=== PATIENT | female | born 1955 | race Caucasian/White ===

== ENCOUNTER 2019-12-15 09:54 | Outpatient (REF) | payer OTHER, SELFPAY | END 2019-12-15 09:55 | disposition home or self-care (01) | LOC: HO.LNP 09:54 | PROVIDERS: PCP Internal Medicine; Visit Provider Surgery | DX: L72.0 Epidermal cyst (principal) | CPT/HCPCS: 11401; 88304 ==

== ENCOUNTER → 2019-12-29 11:20 | Outpatient (BNVA) | payer OTHER, SELFPAY | PROVIDERS: PCP Internal Medicine; Visit Provider Surgery | DX: Z09 Encounter for follow-up examination after completed treatment for conditions other than malignant neoplasm (principal); Z87.2 Personal history of diseases of the skin and subcutaneous tissue | CPT/HCPCS: 99212; 99213 ==

== ENCOUNTER 2020-02-12 10:28 | Outpatient (REF) | payer OTHER, SELFPAY ==
[2020-02-12 14:28] LABS: Alanine Aminotransferase 15 U/L (0-31); Anion Gap 12 (12-20); Aspartate Amino Transferase 20 U/L (5-31); Blood Urea Nitrogen 19 mg/dL (9-16); Calcium 9.6 mg/dL (8.4-10.2); Carbon Dioxide 31 mmol/L (22-29); Chloride 103 mmol/L (96-108); Cholesterol 197 mg/dL; Estimated Glomerular Filt Rate > 60; Glucose Fasting 96 mg/dL (60-99); HDL Cholesterol 64 mg/dL; LDL Cholesterol Calculated 116 mg/dl; Potassium 4.1 mmol/l (3.3-5.1); Sodium 142 mmol/L (135-145); Triglycerides 86 mg/dL
== END 2020-02-12 10:29 | disposition home or self-care (01) ==
LOC: HO.HMGCLDS 10:28
PROVIDERS: PCP Internal Medicine; Visit Provider Internal Medicine
DX: M85.89 Other specified disorders of bone density and structure, multiple sites (principal); E78.5 Hyperlipidemia, unspecified; I10 Essential (primary) hypertension
CPT/HCPCS: 80048; 80061; 82306; 84450; 84460

== ENCOUNTER 2020-03-12 20:52 | Emergency (ER) | payer OTHER, SELFPAY ==
[2020-03-12 20:59] VITALS: BP 151/83; BP 178/112; PULSE 93; PULSE 95; RESP 17; TEMP 36.9; O2SAT 97; O2SAT 98; BMI 33.7
--- NOTE | 2020-03-12 21:07 | XR_ITS ---
EXAMINATION: XR CHEST CLINICAL INFORMATION: Chronic cough. COMPARISON: Most recent chest radiograph dated 10/03/2018. TECHNIQUE: Frontal view of the chest was obtained. FINDINGS: The lungs are clear. The cardiomediastinal silhouette is normal in size. There is no pleural effusion or pneumothorax. No acute osseous abnormality. XR/XR chest 1V IMPRESSION: No acute cardiopulmonary findings.
--- NOTE | 2020-03-12 21:07 | ECG_ITS ---
Test Reason : NAUSEA/VOMITING Blood Pressure : / mmHG Vent. Rate : 069 BPM Atrial Rate : 069 BPM P-R Int : 164 ms QRS Dur : 080 ms QT Int : 396 ms P-R-T Axes : 034 -03 019 degrees QTc Int : 424 ms Normal sinus rhythm Moderate voltage criteria for LVH, may be normal variant Nonspecific ST abnormality Abnormal ECG When compared with ECG of 17-SEP-2018 14:20, No significant change was found Referred By: Jocelyn Jc Electronically Signed By:MARTHA PENA
--- NOTE | 2020-03-12 21:08 | ED_ITS ---
HPI - General Adult General Chief complaint: General Medical Stated complaint: N/V/D Time Seen by Provider: 03/12/20 20:56 Source: patient Mode of arrival: ambulatory History of Present Illness HPI narrative: 64-year-old female with a past medical history of hypertension, GERD, hyperlipidemia, IBS, breast cancer s/p double mastectomy, Lyme disease, sarcoidosis, presenting to the ED complaining nausea and vomiting x3 days with decreased p.o. intake. Also reports some nonbloody diarrhea. Reports chronic dry cough. Denies fever, CP/SOB, abdominal pain, dysuria/hematuria, suspicious food intake, recent travel. Admits niece with cold x months, but has tested negative for COVID-19 Onset (ago): day(s) Related Data Home Medications Medication Instructions Recorded Confirmed albuterol sulfate 90 mcg/actuation INHALATION 12/12/19 12/29/19 aerosol inhaler amlodipine 10 mg tablet 10 mg PO DAILY 12/12/19 12/29/19 cetirizine 10 mg tablet 10 mg PO DAILY 12/12/19 12/29/19 cholecalciferol (vitamin D3) 50 50 mcg PO DAILY 12/12/19 12/29/19 mcg (2,000 unit) capsule doxazosin 2 mg tablet 2 mg PO DAILY 12/12/19 12/29/19 vitamin B complex 1 tab PO DAILY 12/12/19 12/29/19 flu vac qs 2019(4 yr up)CD(PF) ml IM 02/16/20 02/16/20 vit C 250 mg-E 200 unit-zinc 40 1 tab PO BID 02/16/20 02/16/20 mg-copper 1 [id number]-euhbwq-sntoks capsule Previous Rx's Medication Instructions Recorded omeprazole 20 mg capsule,delayed 20 mg PO QAM #30 cap 01/25/20 release olmesartan 20 mg tablet 20 mg PO QAM #30 tab 01/29/20 albuterol sulfate 90 mcg/actuation 2 puff INHALATION Q4-6H PRN #8.5 g 02/23/20 aerosol inhaler levofloxacin 250 mg PO DAILY 3 Days #3 tab 03/13/20 ondansetron HCl [Zofran] 4 mg PO Q8H PRN #7 tab 03/13/20 Allergies Allergy/AdvReac Type Severity Reaction Status Date / Time Penicillins Allergy Severe ANAPHYLAXIS Verified 12/08/20 10:19 adhesive tape Allergy Intermediate BLISTERS Verified 02/16/20 10:19 hydrochlorothiazide Allergy Mild PALPITATION, Verified 02/16/20 10:19 PALPITATIONS, palpitations iopromide [From ULTRAVIST] Allergy Mild UTICARIA, Verified 02/16/20 10:19 HIVES latex [LATEX] Allergy Unknown RASH Verified 02/16/20 10:19 methotrexate [METHOTREXATE] AdvReac Severe DIARRHEA-LARGER Verified 02/16/20 10:19 DOSE OF MED chlorthalidone AdvReac Intermediate SHAKY,ANXIE Verified 02/16/20 10:19 [CHLORTHALIDONE] TY sulfamethoxazole AdvReac Intermediate STOMACH Verified 02/16/20 10:19 [SULFAMETHOXAZOLE] PAIN atorvastatin [From LIPITOR] AdvReac Mild MYALGIA Verified 02/16/20 10:19 IVP dye Allergy Unknown redness Uncoded 01/26/19 00:00 and itching Review of Systems Review of Systems: Constitutional: No Weight loss, No Fever, + Chills, No Night Sweats ENT/Mouth: No Ear Pain, No Nasal Congestion, No Sinus Pain Cardiovascular: No Chest Pain, No SOB Respiratory: +chronic Cough, No Sputum, No Wheezing Gastrointestinal: + Nausea, + Vomiting, + Diarrhea, No Constipation, No Abdomi nal pain, No Hematochezia Genitourinary: No irregular bleeding, No Dysuria, No Urinary Frequency, No Hematuria Musculoskeletal: No joint pain, No Myalgias, No Joint Swelling Skin: No Skin Lesions, No rash Neuro: No Weakness, No Numbness, No Paresthesias, No Loss of Consciousness Yes all other systems are reviewed and are negative [facility] Past Medical History Attestation statement: The following information was validated with the patient. Medical History Carpal tunnel syndrome Essential hypertension Fatty liver GERD (gastroesophageal reflux disease) Hyperlipidemia IBS (irritable bowel syndrome) Invasive ductal carcinoma of right breast Lyme disease Osteopenia Sarcoidosis Surgical History History of bilateral mastectomy (~04/02/17) History of cholecystectomy (~04/15/14) History of left breast biopsy (~2017) History of left mastectomy (~06/09/18) History of lumpectomy of right breast (~1997) History of removal of Port-a-Cath (~02/04/18) History of tonsillectomy History of tubal ligation Family History Family History Father History of heart disease History of cardiovascular disorder Mother History of diabetes mellitus History of hypertension History of myocardial infarction History of emphysema Sister History of rheumatoid arthritis Brother History of rheumatoid arthritis Social History Social History Alcohol intake: never Smoking Status: Never smoker Advance Directives: No Advance Directives Information Provided: No Physical Exam Vital Signs: Vital Signs: Last Vital Signs Temp 99.7 F 03/12/20 22:19 Pulse 76 03/12/20 22:19 Resp 17 03/12/20 22:19 BP 137/77 03/12/20 22:19 Pulse Ox 94 03/12/20 22:19 Body Mass Index 33.7 Const: General: cooperative and healthy appearing Orientation/c onsciousness: patient oriented x3 Limitations: no limitations HENMT: Head: Yes normal to inspection Ears: hearing grossly normal bilaterally General nose exam: Normal external nose present Face and sinus: Yes normal facial exam Eyes: General: appearance normal, both eyes and all related structures EOM: EOMs intact bilaterally Neck: Neck: Yes normal visual inspection Resp: Effort & Inspection: normal respiratory effort Auscultation: clear to auscultation bilaterally, no crackles, no rales, no rhonchi and no wheezes Cardio: Rate: regular rate Heart sounds: S1 normal heart sound present and S2 normal heart sound present GI: Inspection: Yes normal to inspection Palpation (GI): Soft to palpation, nontender, no guarding and not rigid Skin: Rashes: no rashes Wounds: no wounds Neuro: General: patient oriented x3 Extrem: General: Yes normal to inspection Course Course Course Narrative: * Lipase mildly elevated at 97, labs otherwise unremarkable/ reassuring * covid/rsv/flu negative, CXR unremarkable * 1133-- On re-evaluation patient reports improvement in nausea, was able to tolerate p.o. Maalox and water, however reports feeling a little queasy now. abdomen remains soft and nontender. Will give IV Reglan and reassess * 0050- patient reports improvement in symptoms. UA positive for infection. Given 1st dose of Levaquin in the ED based on prior urine culture results. Discussed with patient worrisome signs and symptoms. She feels safe for discharge home with follow-up with PCP. Medical Decision Making MDM Narrative Medical decision making narrative: 64-year-old female with a past medical history of hypertension, GERD, hyperlipidemia, IBS, breast cancer s/p double mastectomy, Lyme disease, sarcoidosis, presenting to the ED complaining nausea and vomiting x3 days with decreased p.o. intake. Also reports some nonbloody diarrhea. On exam VSS, NAD/nontoxic appearing, abdomen is soft and nontender, lungs CTA. Concern for gastroenteritis vs viral syndrome/COVID-19 vs dehydration. Lower concern for appendicitis/diverticulitis w/o ttp on exam Plan: Labs, UA, CXR, COVID testing, IVF, Reassess Lab Data Result diagrams: 03/12/20 21:21 03/12/20 21:21 Labs: Lab Results 03/12/20 03/12/20 03/12/20 Range/Units 21:21 21:21 21:21 WBC 6.9 (4.8-10.8) X10*3/uL RBC 4.36 (4.20-5.50) X10*6/uL Hgb 13.5 (12.0-16.0) g/dl Hct 38.7 (37-47) % MCV 88.8 (80-98) fL MCH 31.0 (27.0-33.0) pg MCHC 34.9 (31.0-35.0) g/dl RDW 12.0 (11.0-16.0) % Plt Count 175 (160-400) X10*3/uL MPV 10.4 (9.4-12.3) fL Immature Gran % (Auto) 0.9 H (0.0-0.4) % Neut % (Auto) 77.9 H (45-73) % Lymph % (Auto) 13.0 L (20-40) % Victoria % (Auto) 7.8 (2-11) % Eos % (Auto) 0.0 (0-4) % Baso % (Auto) 0.4 (0-2) % Lymph # (Auto) 0.9 L (1.2-4.9) X10*3/uL Victoria # (Auto) 0.5 (0.1-1.2) X10*3/uL Eos # (Auto) 0.0 (0.0-0.4) X10*3/uL Baso # (Auto) 0.0 (0.0-0.2) X10*3/uL Abs Immat Gran (auto) 0.06 H (0.00-0.03) X10*3/uL Absolute Neuts (auto) 5.4 (2.0-8.3) X10*3/uL Absolute Nucleated RBC 0.000 (0.0-0.012) X10*3/uL Nucleated RBC % (auto) 0.0 (0.0-0.2) /100WBC Hold Blue Top Sodium 139 (135-145) mmol/L Potassium 3.9 (3.3-5.1) mmol/l Chloride 98 (96-108) mmol/L Carbon Dioxide 29 (22-29) mmol/L Anion Gap 16 (12-20) BUN 15 (9-16) mg/dL Creatinine 0.70 (0.5-1.4) mg/dL Estim Creat Clear Calc 79.2 Estimated GFR > 60 Random Glucose 116 H (60-115) mg/dL Calcium 9.3 (8.4-10.2) mg/dL Magnesium 2.0 (1.6-2.6) mg/dL Total Bilirubin 0.5 (0.0-1.0) mg/dL Direct Bilirubin 0.2 (0.0-0.5) mg/dL AST 29 D (5-31) U/L ALT 23 (0-31) U/L Alkaline Phosphatase 106 (39-117) U/L Total Protein 7.9 (6.5-8.0) g/dL Albumin 4.7 (3.5-5.0) g/dL Lipase (8-78) U/L Urine Color Urine Appearance Urine pH (5.0-8.0) Ur Specific Elsie (1.005-1.025) Urine Protein (NEG-TRACE) MG/DL Urine Glucose (UA) (NEG) MG/DL Urine Ketones (NEG) MG/DL Urine Blood (NEG) Urine Nitrite (NEG) Ur Leukocyte Esterase (NEG) Urine RBC (0) /HPF Urine WBC (0-4) /HPF Ur Squamous Epith Cells /LPF Urine Bacteria /LPF Urine Mucus /LPF Coronavirus (PCR) NEGATIVE (Negative) Influenza Type A (PCR) NEGATIVE (Negative) Influenza Type B (PCR) NEGATIVE (Negative) RSV RNA Qual (PCR) NEGATIVE (Negative) 03/12/20 03/12/20 03/12/20 Range/Units 21:21 21:21 23:54 WBC (4.8-10.8) X10*3/uL RBC (4.20-5.50) X10*6/uL Hgb (12.0-16.0) g/dl Hct (37-47) % MCV (80-98) fL MCH (27.0-33.0) pg MCHC (31.0-35.0) g/dl RDW (11.0-16.0) % Plt Count (160-400) X10*3/uL MPV (9.4-12.3) fL Immature Gran % (Auto) (0.0-0.4) % Neut % (Auto) (45-73) % Lymph % (Auto) (20-40) % Victoria % (Auto) (2-11) % Eos % (Auto) (0-4) % Baso % (Auto) (0-2) % Lymph # (Auto) (1.2-4.9) X10*3/uL Victoria # (Auto) (0.1-1.2) X10*3/uL Eos # (Auto) (0.0-0.4) X10*3/uL Baso # (Auto) (0.0-0.2) X10*3/uL Abs Immat Gran (auto) (0.00-0.03) X10*3/uL Absolute Neuts (auto) (2.0-8.3) X10*3/uL Absolute Nucleated RBC (0.0-0.012) X10*3/uL Nucleated RBC % (auto) (0.0-0.2) /100WBC Hold Blue Top SEE NOTE Sodium (135-145) mmol/L Potassium (3.3-5.1) mmol/l Chloride (96-108) mmol/L Carbon Dioxide (22-29) mmol/L Anion Gap (12-20) BUN (9-16) mg/dL Creatinine (0.5-1.4) mg/dL Estim Creat Clear Calc Estimated GFR Random Glucose (60-115) mg/dL Calcium (8.4-10.2) mg/dL Magnesium (1.6-2.6) mg/dL Total Bilirubin (0.0-1.0) mg/dL Direct Bilirubin (0.0-0.5) mg/dL AST (5-31) U/L ALT (0-31) U/L Alkaline Phosphatase (39-117) U/L Total Protein (6.5-8.0) g/dL Albumin (3.5-5.0) g/dL Lipase 97 H (8-78) U/L Urine Color YELLOW Urine Appearance CLEAR Urine pH 6.5 (5.0-8.0) Ur Specific Elsie 1.020 (1.005-1.025) Urine Protein NEG (NEG-TRACE) MG/DL Urine Glucose (UA) NEG (NEG) MG/DL Urine Ketones 40 (NEG) MG/DL Urine Blood TRACE (NEG) Urine Nitrite POS H (NEG) Ur Leukocyte Esterase NEG (NEG) Urine RBC 1-4 (0) /HPF Urine WBC 0-2 (0-4) /HPF Ur Squamous Epith Cells 1+ /LPF Urine Bacteria 3+ /LPF Urine Mucus TRACE /LPF Coronavirus (PCR) (Negative) Influenza Type A (PCR) (Negative) Influenza Type B (PCR) (Negative) RSV RNA Qual (PCR) (Negative) Discharge Plan Discharge Clinical Impression: UTI (urinary tract infection) Qualifiers: Urinary tract infection type: acute cystitis Hematuria presence: without hematuria Qualified Code(s): N30.00 - Acute cystitis without hematuria Nausea & vomiting Qualifiers: Vomiting type: unspecified Vomiting Intractability: non-intractable Qualified Code(s): R11.2 - Nausea with vomiting, unspecified Patient Disposition: Home, Self-Care Instructions: Urinary Tract Infection in Women (ED), Acute Nausea and Vomiting (ED) Additional Instructions: you have a urinary tract infection Levaquin is an antibiotic, take as prescribed your blood work was reassuring Today in the emergency department your pancreas enzymes were mildly elevated Your are COVID-19 influenza, and RSV negative Zofran is for nausea, take as needed It important for you to stay hydrated at home Follow-up with her doctor If her symptoms persist or worsen, your unable to eat or drink, or developed fever return to the ED Prescriptions: New levofloxacin 250 mg tablet 250 mg PO DAILY 3 Days Qty: 3 RF: 0 ondansetron HCl [Zofran] 4 mg tablet 4 mg PO Q8H PRN (Reason: nausea and vomiting) Qty: 7 RF: 0 No Action omeprazole 20 mg capsule,delayed release(DR/EC) 20 mg PO QAM Qty: 30 RF: 6 olmesartan 20 mg tablet 20 mg PO QAM Qty: 30 RF: 8 albuterol sulfate 90 mcg/actuation HFA aerosol inhaler 2 puff inhalation Q4-6H PRN (Reason: bronchospasm) Qty: 8.5 RF: 3 Flucelvax Quad [id number] (PF) 60 mcg (15 mcg x 4)/0.5 mL syringe IM RF: 0 PreserVision AREDS-2 [id number] me-aawu-cy-mg capsule 1 tab PO BID RF: 0 amlodipine 10 mg tablet 10 mg PO DAILY RF: 0 cetirizine 10 mg tablet 10 mg PO DAILY RF: 0 doxazosin 2 mg tablet 2 mg PO DAILY RF: 0 albuterol sulfate 90 mcg/actuation HFA aerosol inhaler inhalation RF: 0 vitamin B complex Tablet 1 tab PO DAILY RF: 0 cholecalciferol (vitamin D3) 50 mcg (2,000 unit) capsule 50 mcg PO DAILY RF: 0 Referrals: Lizette Bey MD [Physician] - 1 week (as needed) Physician,Unknown [Primary Care Provider] - 2 days
[2020-03-12 21:37] LABS: Basophils Percent Auto 0.4 % (0-2); Hematocrit 38.7 % (37-47); Hemoglobin 13.5 g/dl (12.0-16.0); Imm Gran Abs Auto 0.06 X10*3/uL (0.00-0.03); Imm Gran Pct Auto 0.9 % (0.0-0.4); Lymphocytes Absolute Auto 0.9 X10*3/uL (1.2-4.9); Mean Corpuscular HGB Conc 34.9 g/dl (31.0-35.0); Mean Corpuscular Volume 88.8 fL (80-98); Mean Platelet Volume 10.4 fL (9.4-12.3); Monocytes Absolute Auto 0.5 X10*3/uL (0.1-1.2); Monocytes Percent Auto 7.8 % (2-11); Neutrophils Absolute Auto 5.4 X10*3/uL (2.0-8.3); Neutrophils Percent Auto 77.9 % (45-73); Platelet Count 175 X10*3/uL (160-400); Red Blood Count 4.36 X10*6/uL (4.20-5.50); White Blood Count 6.9 X10*3/uL (4.8-10.8)
[2020-03-12 21:39] LABS: MANUAL DIFF FLAG NO
[2020-03-12] MEDS: Magnesium Hydrox/Alum Hydrox 30 ML ORAL.SUSP PO (22:05)
[2020-03-12] MEDS: 0.9 % Sodium Chloride 1,000 ML 999 ML IVCONT (22:05)
[2020-03-12] MEDS: ondansetron HCL 4 MG/2 ML VIAL IVPUSH (22:06)
[2020-03-12] MEDS: Famotidine/PF 20 MG/2 ML VIAL IVPUSH (22:06)
[2020-03-12 22:12] LABS: Alanine Aminotransferase 23 U/L (0-31); Albumin Level 4.7 g/dL (3.5-5.0); Alkaline Phosphatase 106 U/L (39-117); Anion Gap 16 (12-20); Aspartate Amino Transferase 29 U/L (5-31); Bilirubin Direct 0.2 mg/dL (0.0-0.5); Bilirubin Total 0.5 mg/dL (0.0-1.0); Blood Urea Nitrogen 15 mg/dL (9-16); Calcium 9.3 mg/dL (8.4-10.2); Carbon Dioxide 29 mmol/L (22-29); Chloride 98 mmol/L (96-108); Creatinine Clr Calc Pharmacy 79.2; Estimated Glomerular Filt Rate > 60; Glucose Random 116 mg/dL (60-115); Potassium 3.9 mmol/l (3.3-5.1); Sodium 139 mmol/L (135-145); Total Protein 7.9 g/dL (6.5-8.0)
[2020-03-12 22:14] VITALS: BP 142/72; PULSE 62
[2020-03-12 22:15] VITALS: BP 140/78; PULSE 70
[2020-03-12 22:16] LABS: Lipase 97 U/L (8-78)
[2020-03-12 22:17] VITALS: BP 137/77; PULSE 76
[2020-03-12 22:19] VITALS: BP 137/77; PULSE 76; RESP 17; TEMP 37.6; O2SAT 94
[2020-03-12] MEDS: Acetaminophen 325 MG TABLET 650 MG PO (23:05)
[2020-03-12 23:07] LABS: Influenza A PCR NEGATIVE (Negative); Influenza B PCR NEGATIVE (Negative); Resp Syncy Virus RNA Qual PCR NEGATIVE (Negative); SARS COV2 PCR INHOUSE NEGATIVE (Negative)
--- NOTE | 2020-03-12 23:42 | PC.NURSE ---
PT AWAKE AND ALERT, ABLE TO TOLERATE P.O. WATER AND MAALOX. PT STILL FEELING NAUSEOUS. PT HAS NOT HAD DIARRHEA SINCE ARRIVAL TO ER.
[2020-03-12] MEDS: Metoclopramide HCl 10 MG/2 ML VIAL IVPUSH (23:58)
[2020-03-13 00:05] LABS: Glucose Urine UA NEG (NEG); Leukocyte Esterase Urine NEG (NEG); Nitrite Urine POS (NEG); PH 6.5 (5.0-8.0); Urine Blood TRACE (NEG); Urine Ketones 40 MG/DL (NEG); Urine Protein NEG (NEG-TRACE)
[2020-03-13 00:10] LABS: Appearance Urine CLEAR; Color Urine YELLOW
[2020-03-13 00:48] LABS: Bacteria Urine 3+ /LPF; Mucus Urine TRACE /LPF; Squamous Epithelial Cell Urine 1+ /LPF; WBC Urine 0-2 /HPF (0-4)
[2020-03-13] MEDS: levoFLOXacin 250 MG TABLET PO (01:01)
[2020-03-13] MEDS: 0.9 % Sodium Chloride 1,000 ML 999 ML IVCONT (01:01)
[2020-03-13 01:02] VITALS: BP 142/70; PULSE 73; RESP 16; O2SAT 97
== END 2020-03-13 02:38 | disposition home or self-care (01) ==
PROVIDERS: Physician Assistant; Emergency Provider Internal Medicine
DX: N30.00 Acute cystitis without hematuria (principal); R11.2 Nausea with vomiting, unspecified; Z20.828 Contact with and (suspected) exposure to other viral communicable diseases; I10 Essential (primary) hypertension
CPT/HCPCS: 0241U; 36415; 71045; 80048; 80076; 81001; 81003; 83690; 83735; 85025; 87086; 87088; 87186; 93005; 96361; 96374; 96375; 99284; J2405; J2765

== ENCOUNTER 2020-03-14 13:34 | Emergency (ER) | payer OTHER, SELFPAY ==
[2020-03-14 14:52] VITALS: BP 140/62; PULSE 69; RESP 18; TEMP 36.4; O2SAT 97; BMI 32.5
--- NOTE | 2020-03-14 14:52 | ED.GENADULT ---
HPI - General Adult General Chief complaint: Nausea/Vomiting/Diarrhea Stated complaint: v/n/d Time Seen by Provider: 03/14/20 14:51 Related Data Home Medications Medication Instructions Recorded Confirmed albuterol sulfate 90 mcg/actuation INHALATION 12/12/19 12/29/19 aerosol inhaler amlodipine 10 mg tablet 10 mg PO DAILY 12/12/19 12/29/19 cetirizine 10 mg tablet 10 mg PO DAILY 12/12/19 12/29/19 cholecalciferol (vitamin D3) 50 50 mcg PO DAILY 12/12/19 12/29/19 mcg (2,000 unit) capsule doxazosin 2 mg tablet 2 mg PO DAILY 12/12/19 12/29/19 vitamin B complex 1 tab PO DAILY 12/12/19 12/29/19 flu vac qs 2019(4 yr up)CD(PF) ml IM 02/16/20 02/16/20 vit C 250 mg-E 200 unit-zinc 40 1 tab PO BID 02/16/20 02/16/20 mg-copper 1 [id number]-yzifkd capsule Previous Rx's Medication Instructions Recorded omeprazole 20 mg capsule,delayed 20 mg PO QAM #30 cap 01/25/20 release olmesartan 20 mg tablet 20 mg PO QAM #30 tab 01/29/20 albuterol sulfate 90 mcg/actuation 2 puff INHALATION Q4-6H PRN #8.5 g 02/23/20 aerosol inhaler levofloxacin 250 mg PO DAILY 3 Days #3 tab 03/13/20 ondansetron HCl [Zofran] 4 mg PO Q8H PRN #7 tab 03/13/20 Allergies Allergy/AdvReac Type Severity Reaction Status Date / Time Penicillins Allergy Severe ANAPHYLAXIS Verified 02/16/20 10:19 adhesive tape Allergy Intermediate BLISTERS Verified 02/16/20 10:19 hydrochlorothiazide Allergy Mild PALPITATION, Verified 02/16/20 10:19 PALPITATIONS, palpitations iopromide [From ULTRAVIST] Allergy Mild UTICARIA, Verified 02/16/20 10:19 HIVES latex [LATEX] Allergy Unknown RASH Verified 02/16/20 10:19 methotrexate [METHOTREXATE] AdvReac Severe DIARRHEA-LARGER Verified 02/16/20 10:19 DOSE OF MED chlorthalidone AdvReac Intermediate SHAKY,ANXIE Verified 02/16/20 10:19 [CHLORTHALIDONE] TY sulfamethoxazole AdvReac Intermediate STOMACH Verified 02/16/20 10:19 [SULFAMETHOXAZOLE] PAIN atorvastatin [From LIPITOR] AdvReac Mild MYALGIA Verified 02/16/20 10:19 IVP dye Allergy Unknown redness Uncoded 01/26/19 00:00 and itching PMFSH Past Medical History Medical History Carpal tunnel syndrome Essential hypertension Fatty liver GERD (gastroesophageal reflux disease) Hyperlipidemia IBS (irritable bowel syndrome) Invasive ductal carcinoma of right breast Lyme disease Osteopenia Sarcoidosis Surgical History History of bilateral mastectomy (~04/02/17) History of cholecystectomy (~04/15/14) History of left breast biopsy (~2017) History of left mastectomy (~06/09/18) History of lumpectomy of right breast (~1997) History of removal of Port-a-Cath (~02/04/18) History of tonsillectomy History of tubal ligation Family History Family History Father History of heart disease History of cardiovascular disorder Mother History of diabetes mellitus History of hypertension History of myocardial infarction History of emphysema Sister History of rheumatoid arthritis Brother History of rheumatoid arthritis Social History Social History Alcohol intake: never Smoking Status: Never smoker Course Course Course Narrative: 1452-This is a rapid medical exam. 64 yo female with past medical history of breast cancer in remission, HTN, asthma here with nausea, vomiting, diarrhea x 5-6 days. Seen here Saturday and had covid testing, labs. Diagnosed with UTI. Taking levaquin, zofran SL at home. Continued symptoms of vomiting, nausea, weight loss of 10lbs. No abdominal pain. Will check labs. Deferred HPI, PE, ROS, and additional testing to primary provider. Discharge Plan Discharge Prescriptions: No Action omeprazole 20 mg capsule,delayed release(DR/EC) 20 mg PO QAM Qty: 30 RF: 6 olmesartan 20 mg tablet 20 mg PO QAM Qty: 30 RF: 8 albuterol sulfate 90 mcg/actuation HFA aerosol inhaler 2 puff inhalation Q4-6H PRN (Reason: bronchospasm) Qty: 8.5 RF: 3 levofloxacin 250 mg tablet 250 mg PO DAILY 3 Days Qty: 3 RF: 0 ondansetron HCl [Zofran] 4 mg tablet 4 mg PO Q8H PRN (Reason: nausea and vomiting) Qty: 7 RF: 0 Flucelvax Quad (PF) 60 mcg (15 mcg x 4)/0.5 mL syringe IM RF: 0 PreserVision AREDS-2 [id number] xb-uyyw-qy-mg capsule 1 tab PO BID RF: 0 amlodipine 10 mg tablet 10 mg PO DAILY RF: 0 cetirizine 10 mg tablet 10 mg PO DAILY RF: 0 doxazosin 2 mg tablet 2 mg PO DAILY RF: 0 albuterol sulfate 90 mcg/actuation HFA aerosol inhaler inhalation RF: 0 vitamin B complex Tablet 1 tab PO DAILY RF: 0 cholecalciferol (vitamin D3) 50 mcg (2,000 unit) capsule 50 mcg PO DAILY RF: 0
== END 2020-03-14 18:00 | disposition left against medical advice (07) ==
PROVIDERS: Emergency Provider Emergency Medicine; PCP Internal Medicine
DX: R11.2 Nausea with vomiting, unspecified (principal); R19.7 Diarrhea, unspecified; I10 Essential (primary) hypertension; K76.0 Fatty (change of) liver, not elsewhere classified; Z85.3 Personal history of malignant neoplasm of breast
CPT/HCPCS: 99282; 99283

== ENCOUNTER → 2020-03-15 09:57 | Outpatient (BNV) | payer MEDICARE, SELFPAY | PROVIDERS: PCP Internal Medicine; Visit Provider Internal Medicine Medical Oncology | DX: C50.912 Malignant neoplasm of unspecified site of left female breast (principal) | CPT/HCPCS: 99212; 99213; 99214 ==

== ENCOUNTER 2020-03-18 09:58 | Outpatient (REF) | payer OTHER, SELFPAY ==
--- NOTE | 2020-03-18 10:02 | US_ITS ---
EXAMINATION: US ABDOMEN COMPLETE CLINICAL INFORMATION: Right upper quadrant pain. COMPARISON: CT abdomen 12/14/2014. Ultrasound abdomen 03/22/2014 and 03/02/2013. TECHNIQUE: Real-time imaging of the abdominal viscera. FINDINGS: PANCREAS: Normal ABDOMINAL AORTA: The proximal, mid, and distal segments are normal in caliber. INFERIOR VENA CAVA: Visualized portions are normal. LIVER: Normal. The liver is normal in size. The liver contour is normal. Parenchymal echogenicity is normal. No focal hepatic lesion. There is no intrahepatic biliary duct dilatation seen. GALLBLADDER: Surgically absent. COMMON BILE DUCT: Normal in caliber measuring 0.8 cm in diameter. RIGHT KIDNEY: Normal. No hydronephrosis. No renal calculi or focal parenchymal lesions. The kidney measures 10.1 cm in maximum dimension. LEFT KIDNEY: Normal. No hydronephrosis. No renal calculi or focal parenchymal lesions. The kidney measures 9.8 cm in maximum dimension. SPLEEN: Normal. The spleen measures 9.8 cm in maximum dimension. FREE FLUID: None US/US abdomen complete IMPRESSION: Unremarkable complete abdomen ultrasound.
== END 2020-03-18 09:59 | disposition home or self-care (01) ==
LOC: HO.HMGCX 09:58
PROVIDERS: Visit Provider Internal Medicine Medical Oncology
DX: R10.11 Right upper quadrant pain (principal)
CPT/HCPCS: 76700

== ENCOUNTER 2020-03-25 12:16 | Outpatient (REF) | payer OTHER, SELFPAY ==
[2020-03-25 14:36] LABS: Anion Gap 14 (12-20); Carbon Dioxide 30 mmol/L (22-29); Chloride 102 mmol/L (96-108); Potassium 4.4 mmol/l (3.3-5.1); Sodium 142 mmol/L (135-145)
== END 2020-03-25 12:17 | disposition home or self-care (01) ==
LOC: HO.HMGCLDS 12:16
PROVIDERS: PCP Internal Medicine; Visit Provider Internal Medicine Medical Oncology
DX: C50.912 Malignant neoplasm of unspecified site of left female breast (principal)
CPT/HCPCS: 36415; 80051

== ENCOUNTER 2020-04-07 09:19 | Outpatient (REF) | payer OTHER, SELFPAY ==
[2020-04-07 11:16] LABS: MANUAL DIFF FLAG NO
[2020-04-07 11:26] LABS: Basophils Percent Auto 0.3 % (0-2); Eosinophils Absolute Auto 0.1 X10*3/uL (0.0-0.4); Eosinophils Percent Auto 1.8 % (0-4); Hematocrit 39.7 % (37-47); Hemoglobin 13.2 g/dl (12.0-16.0); Imm Gran Abs Auto 0.01 X10*3/uL (0.00-0.03); Imm Gran Pct Auto 0.3 % (0.0-0.4); Lymphocytes Absolute Auto 0.9 X10*3/uL (1.2-4.9); Lymphocytes Percent Auto 24.7 % (20-40); Mean Corpuscular HGB Conc 33.2 g/dl (31.0-35.0); Mean Corpuscular Hemoglobin 30.1 pg (27.0-33.0); Mean Corpuscular Volume 90.6 fL (80-98); Monocytes Absolute Auto 0.4 X10*3/uL (0.1-1.2); Monocytes Percent Auto 9.7 % (2-11); Neutrophils Absolute Auto 2.4 X10*3/uL (2.0-8.3); Neutrophils Percent Auto 63.2 % (45-73); Platelet Count 149 X10*3/uL (160-400); Red Blood Count 4.38 X10*6/uL (4.20-5.50); Red Cell Distribution Width 12.4 % (11.0-16.0); White Blood Count 3.8 X10*3/uL (4.8-10.8)
[2020-04-07 11:52] LABS: Alanine Aminotransferase 10 U/L (0-31); Albumin Level 4.5 g/dL (3.5-5.0); Alkaline Phosphatase 100 U/L (39-117); Amylase 66 U/L (28-100); Anion Gap 15 (12-20); Aspartate Amino Transferase 15 U/L (5-31); Bilirubin Total 0.7 mg/dL (0.0-1.0); Blood Urea Nitrogen 13 mg/dL (9-16); Calcium 9.3 mg/dL (8.4-10.2); Carbon Dioxide 31 mmol/L (22-29); Chloride 101 mmol/L (96-108); Estimated Glomerular Filt Rate > 60; Glucose Fasting 123 mg/dL (60-99); Lipase 49 U/L (8-78); Potassium 3.6 mmol/l (3.3-5.1); Sodium 143 mmol/L (135-145)
== END 2020-04-07 09:20 | disposition home or self-care (01) ==
LOC: HO.HMGCLDS 09:19
PROVIDERS: PCP Internal Medicine; Visit Provider Internal Medicine
DX: I10 Essential (primary) hypertension (principal); K58.2 Mixed irritable bowel syndrome; R10.13 Epigastric pain
CPT/HCPCS: 36415; 80053; 82150; 83690; 85025

== ENCOUNTER → 2020-05-24 10:01 | Outpatient (BNVA) | payer OTHER, SELFPAY | PROVIDERS: PCP Internal Medicine; Visit Provider Surgery | DX: C50.912 Malignant neoplasm of unspecified site of left female breast (principal) | CPT/HCPCS: 99212 ==

== ENCOUNTER 2020-06-14 12:57 | Outpatient (REF) | payer OTHER, SELFPAY ==
[2020-06-16 22:17] LABS: HPV mRNA E6/E7 rflx Not Detected (Not Detected)
== END 2020-06-14 12:58 | disposition home or self-care (01) ==
LOC: HO.LNP 12:57
PROVIDERS: Visit Provider Internal Medicine
DX: Z12.4 Encounter for screening for malignant neoplasm of cervix (principal); Z92.29 Personal history of other drug therapy
CPT/HCPCS: 87624; 88142

== ENCOUNTER 2020-06-21 10:57 | Outpatient (REF) | payer OTHER, SELFPAY ==
--- NOTE | ~2020-06-21 | MM_ITS ---
EXAMINATION: BONE DENSITOMETRY CLINICAL INDICATION: Other specified disorders of bone density and structure. COMPARISON: Previous BD dated 01/29/2017 and baseline BD dated 08/17/2008. TECHNIQUE: Using a [employer] DXA System (software version: 13.1) manufactured by [employer], dual-energy x-ray absorptiometry was performed of the lumbar spine and left hip. The images are of good technical quality. Summary results are attached. FINDINGS: AP SPINE L1-L4: Current: BMD 1.044 g/cm2, Z-score -0.1, T-score -1.1, osteopenia, 4.6% decrease from previous, 1.9% decrease from baseline (<5% change is not significant). Prior: BMD 1.094 g/cm2. Baseline: BMD 1.064 g/cm2. LEFT FEMUR, NECK: Current: BMD 0.683 g/cm2, Z-score -1.5, T-score -2.6, osteoporosis. Prior: BMD 0.785 g/cm2. Baseline: BMD 0.825 g/cm2. LEFT FEMUR, TOTAL: Current: BMD 0.773 g/cm2, Z-score -1.1, T-score -1.9, osteopenia, 12.1% decrease from previous, 13.7% decrease from baseline (<5% change is not significant). Prior: BMD 0.879 g/cm2. Baseline: BMD 0.896 g/cm2. IDENTIFIED RISK FACTORS: Early menopause, secondary osteoporosis, glucocorticoids (chronic) thiazide. HISTORY OF FRACTURE: None listed. MEDICATIONS: Vitamin D. MM/XR DEXA axial skeleton IMPRESSION: 1. DIAGNOSIS: Osteoporosis based on the lowest T-score value of -2.6 in the femoral neck applying World Health Organization criteria. 2. 10-YEAR FRACTURE RISK PREDICTION, FRAX: Major osteoporotic fracture (clinical spine, forearm, hip or shoulder) 12.4%. Hip fracture 2.5%. 3. Treatment Recommendations: NOF guidelines recommend consideration for treatment in postmenopausal women and men age 50 and older presenting with the following: -A hip or vertebral (clinical or morphometric) fracture. -T-score less than or equal to -2.5 at the femoral neck or spine after appropriate evaluation to exclude secondary causes. -Low bone mass at the hip or spine and a 10-year fracture probability by FRAX of greater than or equal to 3% for hip fracture or greater than or equal to 20% for major osteoporotic fracture based on the [place] adapted WHO algorithm. 4. Other Recommendations: All treatment decisions require clinical judgment and consideration of individual patient factors, including patient preferences, comorbidities, previous drug use, risk factors not captured in the FRAX model (e.g. frailty, falls, vitamin D deficiency, increased bone turnover, interval significant decline in bone density) and possible under or overestimation of fracture risk by FRAX. Additional medical evaluation for secondary cause of low bone mineral density may be appropriate. FUTURE SCAN RECOMMENDATION: People with diagnosed cases of osteoporosis or at high risk for fracture should have regular bone mineral density tests. For patients eligible for Medicare, routine testing is allowed once every 2 years. The testing frequency can be increased to one year for patients who have rapidly progressing disease, those who are receiving or discontinuing medical therapy to restore bone mass, or have additional risk factors.
== END 2020-06-21 10:58 | disposition home or self-care (01) ==
LOC: HO.MAMMO 10:57
PROVIDERS: Visit Provider Internal Medicine
DX: Z13.820 Encounter for screening for osteoporosis (principal); M85.852 Other specified disorders of bone density and structure, left thigh; E28.319 Asymptomatic premature menopause
CPT/HCPCS: 77080

== ENCOUNTER 2020-08-17 11:29 | Outpatient (REF) | payer OTHER, SELFPAY ==
[2020-08-17 16:30] LABS: Free T4 (Free Thyroxine) 1.05 ng/dL (0.71-1.85); Thyroid Stimulating Hormone 0.99 uIU/mL (0.32-4.0)
[2020-08-17 16:36] LABS: Alanine Aminotransferase 13 U/L (0-31); Albumin Level 4.4 g/dL (3.5-5.0); Alkaline Phosphatase 126 U/L (39-117); Anion Gap 14 (12-20); Aspartate Amino Transferase 19 U/L (5-31); Bilirubin Total 0.4 mg/dL (0.0-1.0); Blood Urea Nitrogen 17 mg/dL (9-16); Calcium 9.5 mg/dL (8.4-10.2); Carbon Dioxide 27 mmol/L (22-29); Chloride 104 mmol/L (96-108); Estimated Glomerular Filt Rate > 60; Glucose Random 113 mg/dL (60-115); Phosphorus 3.8 mg/dL (2.7-4.5); Potassium 3.8 mmol/L (3.3-5.1); Sodium 141 mmol/L (135-145); Total Protein 7.1 g/dL (6.5-8.0)
[2020-08-18 09:52] LABS: Calcium, Ionized 4.9 mg/dL (4.8-5.6)
[2020-08-19 09:27] LABS: Calcium (PTHI) 9.8 mg/dL (8.6-10.4); PTHI 99 pg/mL (14-64)
[2020-08-19 23:12] LABS: Prot Elec - Albumin 4.4 g/dL (3.8-4.8); Prot Elec - Alpha1 0.3 g/dL (0.2-0.3); Prot Elec - Alpha2 0.8 g/dL (0.5-0.9); Prot Elec - Beta 1 0.5 g/dL (0.4-0.6); Prot Elec - Beta 2 0.3 g/dL (0.2-0.5); Prot Elec - Gamma 0.9 g/dL (0.8-1.7); Prot Elec - Total Protein 7.2 g/dL (6.1-8.1)
[2020-08-20 11:16] LABS: Alkaline Phosphatase Bone 29.7 mcg/L (5.6-29.0)
== END 2020-08-17 11:30 | disposition home or self-care (01) ==
LOC: HO.HMGCLDS 11:29
PROVIDERS: PCP Internal Medicine; Visit Provider Internal Medicine
DX: M81.0 Age-related osteoporosis without current pathological fracture (principal); E55.9 Vitamin D deficiency, unspecified; E04.9 Nontoxic goiter, unspecified; Z79.899 Other long term (current) drug therapy
CPT/HCPCS: 36415; 80053; 82306; 82330; 83970; 84075; 84100; 84155; 84165; 84439; 84443; 99202

== ENCOUNTER 2020-08-23 10:03 | Outpatient (REF) | payer OTHER, SELFPAY ==
[2020-08-23 12:25] LABS: Creatinine, 24Hr Urine 1.1 G/Day (1.0-2.0); Creatinine, mg/dL 46.81; Total Volume 24 Hour Urine 2350 mL
[2020-08-24 17:36] LABS: Calcium, 24 Hr Urine 113 mg/24 h; Calcium/Creatinine Ratio 94 mg/g creat (30-275)
== END 2020-08-23 10:04 | disposition home or self-care (01) ==
LOC: HO.HMGCLNP 10:03
PROVIDERS: Visit Provider Internal Medicine
DX: M81.0 Age-related osteoporosis without current pathological fracture (principal)
CPT/HCPCS: 82340; 82570

== ENCOUNTER 2020-08-25 11:26 | Outpatient (REF) | payer OTHER, SELFPAY ==
--- NOTE | ~2020-08-25 | US_ITS ---
EXAMINATION: US THYROID CLINICAL INFORMATION: Nontoxic goiter, unspecified COMPARISON: CT neck 03/18/2018. TECHNIQUE: Linear transducer grayscale and color Doppler examination with attention to the region of the thyroid. FINDINGS: SIZE: Measurements of the thyroid lobes and nodules are given in sagittal, anteroposterior and transverse dimensions respectively. The thyroid gland is normal in size. Right Thyroid Lobe: 3.5 x 2.1 x 1.5 cm, volume 5.7 mL. Parenchyma: The gland echotexture is homogeneous. Thyroid vascularity is normal. Left Thyroid Lobe: 3.9 x 2.4 x 1.3 cm, volume 6.2 mL. Parenchyma: The gland echotexture is homogeneous. Thyroid vascularity is normal. Isthmus: 0.6 cm in maximum AP dimension. Estimated total number of nodules greater than or equal to 1 cm: 0. Shoe Maker nodules are described as follows: 1. Location: Right inferior. Size: 0.85 x 0.60 x 0.97 cm, volume 0.26 mL. Nodule characteristics: Composition: Mixed cystic and solid (1). Echogenicity: Hypoechoic (2). Shape: Not taller than wide (0). Margins: Smooth (0). Echogenic Foci: Punctate echogenic foci (3). ACR TI-RADS total points: 6 ACR TI-RADS category: 4 NODES: No lymphadenopathy is seen in the tissue surrounding the thyroid gland. US/US thyroid IMPRESSION: Solitary right thyroid nodule. According to TI RADS criteria, follow-up every year for 5 years recommended as described below. ACR TI-RADS RECOMMENDATION REFERENCE: Ultrasound-guided fine-needle aspiration, followup ultrasound, no further follow up. * TR1 (0 point) and TR 2 (2 points): No FNA or follow up * TR3 (3 points): FNA if more than or equal to 2.5 cm in maximum dimension, followup ultrasound in 1, 3 and 5 years if 1.5 to 2.4 cm in maximum dimension. * TR4 (4-6 points): FNA if more than or equal to 1.5 cm in maximum dimension, followup ultrasound in 1, 2, 3 and 5 years if 1 to 1.4 cm in maximum dimension. * TR5 (more than or equal to 7 points): FNA if more than or equal to 1 cm in maximum dimension, followup ultrasound every year for 5 years if 0.5 to 0.9 cm in maximum dimension. * TR3, TR4 or TR5 nodules that are below the size threshold for follow up receive no follow up.
== END 2020-08-25 11:27 | disposition home or self-care (01) ==
LOC: HO.HMGCX 11:26
PROVIDERS: PCP Internal Medicine; Visit Provider Internal Medicine
DX: E04.9 Nontoxic goiter, unspecified (principal)
CPT/HCPCS: 76536

== ENCOUNTER 2020-11-21 13:30 | Outpatient (REF) | payer OTHER, SELFPAY | END 2020-11-21 13:31 | disposition home or self-care (01) | LOC: HO.HMGCLDS 13:30 | PROVIDERS: PCP Internal Medicine; Visit Provider Internal Medicine | DX: Z20.822 Contact with and (suspected) exposure to COVID-19 (principal) | CPT/HCPCS: C9803; U0003; U0005 ==

== ENCOUNTER → 2020-11-23 08:38 | Outpatient (BNVA) | payer OTHER, SELFPAY | PROVIDERS: PCP Internal Medicine; Visit Provider Internal Medicine ==

== ENCOUNTER 2020-11-24 09:47 | Outpatient (REF) | payer OTHER, SELFPAY ==
[2020-11-24 11:15] LABS: MANUAL DIFF FLAG NO
[2020-11-24 11:39] LABS: Basophils Percent Auto 0.4 % (0-2); Eosinophils Absolute Auto 0.1 X10*3/uL (0.0-0.4); Eosinophils Percent Auto 1.9 % (0-4); Hematocrit 38.4 % (37-47); Hemoglobin 12.8 g/dl (12.0-16.0); Imm Gran Abs Auto 0.01 X10*3/uL (0.00-0.03); Imm Gran Pct Auto 0.2 % (0.0-0.4); Lymphocytes Absolute Auto 1.1 X10*3/uL (1.2-4.9); Lymphocytes Percent Auto 23.4 % (20-40); Mean Corpuscular HGB Conc 33.3 g/dl (31.0-35.0); Mean Corpuscular Hemoglobin 30.4 pg (27.0-33.0); Mean Corpuscular Volume 91.2 fL (80-98); Mean Platelet Volume 11.3 fL (9.4-12.3); Monocytes Absolute Auto 0.4 X10*3/uL (0.1-1.2); Monocytes Percent Auto 8.2 % (2-11); Neutrophils Absolute Auto 3.1 X10*3/uL (2.0-8.3); Neutrophils Percent Auto 65.9 % (45-73); Platelet Count 143 X10*3/uL (160-400); Red Blood Count 4.21 X10*6/uL (4.20-5.50); Red Cell Distribution Width 12.8 % (11.0-16.0); White Blood Count 4.7 X10*3/uL (4.8-10.8)
[2020-11-24 12:05] LABS: Free T4 (Free Thyroxine) 1.06 ng/dL (0.71-1.85)
[2020-11-24 12:09] LABS: Vitamin D 25-OH Total 27.1 ng/mL (>30)
[2020-11-24 12:25] LABS: Alanine Aminotransferase 18 U/L (0-31); Albumin Level 4.5 g/dL (3.5-5.0); Alkaline Phosphatase 105 U/L (39-117); Anion Gap 13 (12-20); Aspartate Amino Transferase 21 U/L (5-31); Bilirubin Total 0.6 mg/dL (0.0-1.0); Blood Urea Nitrogen 15 mg/dL (9-16); Calcium 9.6 mg/dL (8.4-10.2); Carbon Dioxide 28 mmol/L (22-29); Chloride 104 mmol/L (96-108); Estimated Glomerular Filt Rate > 60; Glucose Random 98 mg/dL (60-115); Phosphorus 3.7 mg/dL (2.7-4.5); Potassium 4.4 mmol/L (3.3-5.1); Sodium 141 mmol/L (135-145); Total Protein 7.2 g/dL (6.5-8.0)
[2020-11-26 14:06] LABS: CA 27.29 21 U/mL (<38)
[2020-11-28 14:02] LABS: Calcium (PTHI) 9.5 mg/dL (8.6-10.4); PTHI 93 pg/mL (14-64)
== END 2020-11-24 09:48 | disposition home or self-care (01) ==
LOC: HO.HMGCLDS 09:47
PROVIDERS: Internal Medicine Medical Oncology; PCP Internal Medicine; Visit Provider Internal Medicine
DX: E04.1 Nontoxic single thyroid nodule (principal); E21.3 Hyperparathyroidism, unspecified; C50.912 Malignant neoplasm of unspecified site of left female breast
CPT/HCPCS: 36415; 80053; 82306; 83970; 84100; 84439; 84443; 85025; 86300

== ENCOUNTER → 2020-12-02 11:42 | Outpatient (BNVA) | payer OTHER, SELFPAY | PROVIDERS: PCP Internal Medicine; Referring Provider Internal Medicine; Visit Provider Surgery | DX: C50.912 Malignant neoplasm of unspecified site of left female breast (principal) | CPT/HCPCS: 99212 ==

== ENCOUNTER 2021-03-30 07:50 | Outpatient (REF) | payer OTHER, SELFPAY ==
--- NOTE | 2021-03-30 09:14 | PM.OP ---
Brief Operative Note Date of Service: 03/30/21 Pre-op diagnosis: Thyroid nodule Procedure: This is doctor Tawny Hooks. This is an ultrasound-guided fine-needle aspiration report. Date of Examination: 03/30/2021 Indication: Multinodular Thyroid Porcedure: Procedure was explained to the patient. Alternatives, the risk and benefits were discussed. Written consent was obtained. A time-out was also obtained. After sterile preparation, fine-needle aspiration of a right mid pole 1.0 cm thyroid nodule was performed using direct ultrasound guidance to confirm accurate needle placement. Four aspirations were made using 27 gauge needles. An additional three aspirations were made using 25 guage needles. Samples were submitted for cytology. 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 The patient tolerated the procedure well. Aftercare instructions were provided. Impression: Uncomplicated fine needle aspiration biopsy of a right mid pole 1.0 cm thyroid nodule under ultrasound guidance. Surgeon: Tawny Hooks, DO Was an City Planning Engineer used for this Procedure?: No Estimated blood loss (mL): 0
[2021-03-30] MEDS: Lidocaine HCl 1 % MPF 5 ML VIAL 2 ML SUBCUT (11:32)
== END 2021-03-30 07:51 | disposition home or self-care (01) ==
LOC: HO.US 07:50
PROVIDERS: Visit Provider Internal Medicine
DX: E04.1 Nontoxic single thyroid nodule (principal)
CPT/HCPCS: 10005; 88172; 88173; 88177; 88305

== ENCOUNTER → 2021-04-13 11:15 | Outpatient (BNVA) | payer OTHER, SELFPAY | PROVIDERS: PCP Internal Medicine; Visit Provider Internal Medicine ==

== ENCOUNTER 2021-04-17 09:08 | Outpatient (REF) | payer OTHER, SELFPAY ==
--- NOTE | ~2021-04-17 | XR_ITS ---
EXAMINATION: XR LEFT HIP AND PELVIS CLINICAL INFORMATION: Left lower quadrant pain COMPARISON: None TECHNIQUE: 2 views of the left hip and single AP view of the pelvis FINDINGS: Seen only on the lateral projection there is a focal relatively faint area of calcification or ossification anterior to the greater trochanter. The bones, joints and soft tissues are otherwise unremarkable. XR/XR hip LT w PEL1V IMPRESSION: Focal area of ossification/calcification anterior to the greater trochanter lateral projection. This could reflect dystrophic or heterotopic ossification related to prior soft tissue muscle trauma potentially to the iliopsoas. Calcific tendinitis is also a consideration.
== END 2021-04-17 09:09 | disposition home or self-care (01) ==
LOC: HO.HMGCX 09:08
PROVIDERS: Visit Provider Internal Medicine
DX: R10.32 Left lower quadrant pain (principal); M81.0 Age-related osteoporosis without current pathological fracture; E55.9 Vitamin D deficiency, unspecified; E21.3 Hyperparathyroidism, unspecified; E04.1 Nontoxic single thyroid nodule
CPT/HCPCS: 73502

== ENCOUNTER 2021-05-22 10:00 | Outpatient (RCR) | payer OTHER, SELFPAY ==
--- NOTE | 2021-05-12 12:20 | MHC.PT.EP ---
[facility] [place] Office [place] [facility] [place] [facility] [address] Anneliese Mauro [address] [phone] F: [phone] F: [phone] F: [phone] F: [phone] Physical Therapy Plan of Care Date of Evaluation: Date of Surgery: Diagnosis: L lower quadrant pain L groin pain Assessment: 65 y/o F referred to PT with L lower quadrant pain/ L groin pain. Her L groin pain is intermittent and worse with getting in/out of car, ascending stairs, donning/doffing LE clothing and getting into bed. PMH significant for osteoporosis L femur, osteopenia of spine, hx breast CA 2018, and HTN. Examination shows decreased L hip AROM, decreased L hip strength, impaired postural awareness, pain with SLR and hip flexion on L, and impaired gait pattern. S/s consistent with iliopsoas tendinopathy. REcommend PT 2x/week for 5 weeks to address impairments, implement HEP, and optimize functional mobility. Frequency and Duration: The patient will be seen 2x/week for 5 weeks Short Term Goals: 3 weeks 1. Compliant with HEP Behavioral Technician Goals: 5 weeks 1. I with HEP and self management of sx 2. Pt will be able to get in/out of car with L hip pain < 3/10 3. Improve L hip strength by one MMT grade to facilitate stairs Treatment Plan: Modalities to reduce pain, spasms and effusion. Manual therapy to restore motion and function. Therapeutic exercise to improve strength and flexibility. Neuromuscular re-education for posture and balance. Therapeutic activities to return to functional activities of daily living. Electronically signed by: Aspen Moralez PT Please sign and return to therapist. Thank you for your referral.
--- NOTE | 2021-05-26 10:12 | MHC.PT.DC ---
[facility] [place] [facility] [place] [facility] [place] [facility] [address] [facility] [phone] F: [phone] F: [phone] F: [phone] F: [phone] Physical Therapy Discharge Report Diagnosis: L lower quadrant pain L groin pain Date of Surgery: Date of Evaluation: 05/12/21 Date of Discharge: 05/26/21 Treatments to Date: 3 Cancellations to Date: 1 No Shows to Date: 0 Discharge Status: Independent with HEP Patient Elected to Stop Discharge Summary: She called to discharge herself as her son is very sick and she does not have time for PT currently. Electronically signed by: Aspen Moralez PT Please sign and return to therapist. Thank you for your referral.
== END 2021-05-26 10:12 | disposition home or self-care (01) ==
LOC: HO.PTCHIC 10:00
PROVIDERS: PCP Internal Medicine; Visit Provider Internal Medicine
DX: R10.32 Left lower quadrant pain (principal)
CPT/HCPCS: 97110; 97112; 97140; 97162

== ENCOUNTER 2021-06-02 07:44 | Outpatient (REF) | payer OTHER, SELFPAY ==
[2021-06-02 11:50] LABS: Alanine Aminotransferase 19 U/L (0-31); Albumin Level 4.2 g/dL (3.5-5.0); Alkaline Phosphatase 87 U/L (39-117); Anion Gap 10 (12-20); Aspartate Amino Transferase 19 U/L (5-31); Bilirubin Total 0.6 mg/dL (0.0-1.0); Blood Urea Nitrogen 16 mg/dL (9-16); Calcium 9.6 mg/dL (8.4-10.2); Carbon Dioxide 32 mmol/L (22-29); Chloride 103 mmol/L (96-108); Cholesterol 216 mg/dL; Estimated Glomerular Filt Rate > 60; Glucose Fasting 110 mg/dL (60-99); HDL Cholesterol 65 mg/dL; LDL Cholesterol Calculated 136 mg/dl; Phosphorus 3.5 mg/dL (2.7-4.5); Potassium 4.3 mmol/L (3.3-5.1); Sodium 141 mmol/L (135-145); Total Protein 6.9 g/dL (6.5-8.0); Triglycerides 77 mg/dL
[2021-06-02 12:00] LABS: Thyroid Stimulating Hormone 1.93 uIU/mL (0.32-4.0)
[2021-06-02 12:02] LABS: Free T4 (Free Thyroxine) 1.08 ng/dL (0.71-1.85); Vitamin D 25-OH Total 26.8 ng/mL (>30)
[2021-06-05 13:25] LABS: Calcium (PTHI) 9.7 mg/dL (8.6-10.4); PTHI 96 pg/mL (16-77)
[2021-06-05 22:16] LABS: Prot Elec - Albumin 4.1 g/dL (3.8-4.8); Prot Elec - Alpha1 0.3 g/dL (0.2-0.3); Prot Elec - Alpha2 0.7 g/dL (0.5-0.9); Prot Elec - Beta 1 0.4 g/dL (0.4-0.6); Prot Elec - Beta 2 0.3 g/dL (0.2-0.5); Prot Elec - Gamma 0.8 g/dL (0.8-1.7); Prot Elec - Total Protein 6.6 g/dL (6.1-8.1)
== END 2021-06-02 07:45 | disposition home or self-care (01) ==
LOC: HO.HMGCLDS 07:44
PROVIDERS: PCP Internal Medicine; Visit Provider Internal Medicine
DX: I10 Essential (primary) hypertension (principal); E55.9 Vitamin D deficiency, unspecified; E21.3 Hyperparathyroidism, unspecified; E04.1 Nontoxic single thyroid nodule
CPT/HCPCS: 36415; 80048; 80053; 80061; 82306; 83970; 84100; 84165; 84439; 84443

== ENCOUNTER 2021-06-06 09:38 | Outpatient (REF) | payer OTHER, SELFPAY ==
[2021-06-06 12:11] LABS: Total Volume 24 Hour Urine 1825 mL
[2021-06-06 12:29] LABS: Creatinine, 24Hr Urine 1.1 G/Day (1.0-2.0); Creatinine, mg/dL 57.86
[2021-06-08 19:51] LABS: Calcium, 24 Hr Urine 111 mg/24 h; Calcium/Creatinine Ratio 102 mg/g creat (30-275)
== END 2021-06-06 09:39 | disposition home or self-care (01) ==
LOC: HO.HMGCLNP 09:38
PROVIDERS: PCP Internal Medicine; Visit Provider Internal Medicine
DX: E21.3 Hyperparathyroidism, unspecified (principal); Z85.3 Personal history of malignant neoplasm of breast
CPT/HCPCS: 82340; 82570; 99212

== ENCOUNTER → 2021-06-08 14:47 | Outpatient (BNVA) | payer OTHER, SELFPAY | PROVIDERS: PCP Internal Medicine; Visit Provider Internal Medicine | DX: M81.0 Age-related osteoporosis without current pathological fracture (principal); E55.9 Vitamin D deficiency, unspecified; E21.3 Hyperparathyroidism, unspecified; E04.1 Nontoxic single thyroid nodule | CPT/HCPCS: 99212 ==

== ENCOUNTER 2021-06-12 12:59 | Outpatient (REF) | payer OTHER, SELFPAY ==
--- NOTE | ~2021-06-12 | US_ITS ---
EXAMINATION: US DIAGNOSTIC ULTRASOUND BREAST, RIGHT CLINICAL INFORMATION: Bilateral breast cancer status post right lumpectomy 1997, invasive left breast cancer 2018, bilateral mastectomy 04/02/2017. Patient presents with squeezing sensation near right mastectomy scar. Assess for mass. COMPARISON: Bilateral mammography 03/08/2017. TECHNIQUE: Ultrasound of the right upper anterior lateral chest soft tissues is targeted to the area of patient concern. Patient is able to point to the area of concern at time of imaging. This corresponds to the mastectomy scar. Imaging right axilla also performed. Grayscale imaging and color Doppler are performed without and with harmonics. FINDINGS: The right axilla is unremarkable. There is a small node with normal brock architecture demonstrated. No lymphadenopathy. No cystic or solid mass right axilla. No skin thickening or architectural abnormality. Imaging right anterolateral chest wall near the mastectomy scar demonstrates benign-appearing crescent-shaped circumscribed hypoechoic lesion parallel with the chest wall and skin with internal heterogeneous architecture and no associated peripheral or internal color flow. Dimensions are approximately 0.8 cm in greatest thickness, 5.5 cm medial to lateral, and 4.0 cm superior to inferior. There is no other cystic or solid mass. No skin thickening or edema tracking in soft tissue planes. No hyperemia on color Doppler. Results are discussed with the patient at time of visit. The finding just deep to the lumpectomy scar is nonspecific. Postoperative changes are favored given the circumscribed contours, shape, and lack of color flow. US/US breast RT limited IMPRESSION: -Nonspecific circumscribed avascular heterogeneous crescent-shaped lesion parallel with chest wall in area of right mastectomy scar measuring 0.8 cm in greatest thickness, 5.5 cm medial to lateral, and 4.0 cm superior to inferior. Finding likely postoperative change, possibly organized hematoma. -No adenopathy. No skin thickening or edema tracking in soft tissue planes. No focal suspicious soft tissue lesion. ASSESSMENT: BI-RADS 3: Probably Benign RECOMMENDATION: -Patient should be managed based on the clinical impression. Patient to follow up with Dr. Henderson. -Management options depending on clinical circumstances include clinical follow up; followup targeted ultrasound in 3-6 months; or ultrasound-guided core biopsy.
== END 2021-06-12 13:00 | disposition home or self-care (01) ==
LOC: HO.MAMMO 12:59
PROVIDERS: PCP Internal Medicine; Visit Provider Surgery
DX: M79.621 Pain in right upper arm (principal); Z85.3 Personal history of malignant neoplasm of breast; Z90.13 Acquired absence of bilateral breasts and nipples
CPT/HCPCS: 76642

== ENCOUNTER 2021-09-04 10:45 | Day surgery (SDC) | payer OTHER, SELFPAY ==
[2021-08-29 15:11] VITALS: BMI 34.5
--- NOTE | 2021-09-01 13:10 | P.CONAN_ITS ---
Documented by User: Amy Bejarano NP 09/01/21 13:17 HPI - Anesthesia Eval Consult details Narrative: 65yo F for Upper Endoscopy and Colonoscopy *Multiple med allergies* s/p bilateral mastectomy PMFSH Active Problems Active Problems: All Active Problems (Updated 06/15/21 @ 09:56 by Ingrid Vieyra MD) GERD (gastroesophageal reflux disease) (Acute) Essential hypertension (Acute) Macular degeneration (Acute) Osteopenia of left femoral neck (Acute) Menopause, premature (Acute) History of breast cancer (Acute) Osteoporosis (Acute) Vitamin D deficiency (Acute) Internal hemorrhoids (Acute) Hyperparathyroidism (Acute) Thyroid nodule (Acute) Dyslipidemia (Acute) Impaired fasting glucose (Acute) Past Medical History Medical History Carpal tunnel syndrome Epigastric pain Fatty liver IBS (irritable bowel syndrome) Invasive ductal carcinoma of right breast Irritable bowel syndrome with constipation and diarrhea Left groin pain Lyme disease Sarcoidosis Family History Family History Father History of heart disease History of cardiovascular disorder Mother History of diabetes mellitus History of hypertension History of myocardial infarction History of emphysema Sister History of rheumatoid arthritis Brother History of rheumatoid arthritis Father Substance use disorder Son Substance use disorder Surgical History Surgical History H/O colonoscopy History of bilateral mastectomy (~04/02/17) History of cholecystectomy (~04/15/14) History of left breast biopsy (~2017) History of left mastectomy (~06/09/18) History of lumpectomy of right breast (~1997) History of removal of Port-a-Cath (~02/04/18) History of tonsillectomy History of tubal ligation Social History Social History Household Members: Children Housing: House Are you a primary housekeeper child care to a significant other at home: No Do you presently have visiting nurse or other home services: No Alcohol intake: never Patient Tobacco Use Status: Never used Tobacco e-Cigarette/Vaping Use: Never Used Are you DNR?: No Advance Directives: Yes (HCP) Advance Directives Information Provided: Yes Advance Directives on File: Yes (08/13/17) Advance Directives Date on File: 09/04/21 Recently lost weight without trying: No Nutrition Risks: No Nutritional Risk service: No Current occupational status: retired Cognitive needs: No Hearing needs: No Vision needs: No Meds Allergies Allergy/AdvReac Type Severity Reaction Status Date / Time Penicillins Allergy Severe ANAPHYLAXIS Verified 09/04/21 10:54 adhesive tape Allergy Intermediate BLISTERS Verified 06/15/21 09:51 hydrochlorothiazide Allergy Mild PALPITATION, Verified 06/15/21 09:51 PALPITATIONS, palpitations iopromide [From ULTRAVIST] Allergy Mild UTICARIA, Verified 06/15/21 09:51 HIVES latex [LATEX] Allergy Unknown RASH Verified 06/15/21 09:51 methotrexate [METHOTREXATE] AdvReac Severe DIARRHEA-LARGER Verified 06/15/21 09:51 DOSE OF MED chlorthalidone AdvReac Intermediate SHAKY,ANXIE Verified 06/15/21 09:51 [CHLORTHALIDONE] TY sulfamethoxazole AdvReac Intermediate STOMACH Verified 06/15/21 09:51 [SULFAMETHOXAZOLE] PAIN atorvastatin [From LIPITOR] AdvReac Mild MYALGIA Verified 06/15/21 09:51 IVP dye Allergy Unknown redness Uncoded 06/15/21 09:51 and itching Home Medications Medication Instructions Recorded Confirmed Last Taken Type cholecalciferol (vitamin D3) 50 1,000 unit PO DAILY 01/05/21 08/29/21 Unknown History mcg (2,000 unit) capsule vitamin B complex 1 tab PO DAILY 04/17/21 08/29/21 Unknown History vitamins A,C,S-gdvm-[id number] 14,320 1 cap PO BID 06/15/21 08/29/21 Unknown History unit-226 mg-200 unit capsule (PreserVision AREDS) Exam Exam Date and Time: September 01, 2021 1310 Height,Weight and Vital Signs: Height 5 ft 1 in Weight 83.007 kg Pertinent Lab Results Pertinent Lab Results: Laboratory Tests 05/30/21 06/02/21 10:03 07:55 WBC 4.7 L Hgb 12.7 Hct 38.4 Plt Count 157 L Sodium 141 Potassium 4.3 Chloride 103 Carbon Dioxide 32 H BUN 16 Creatinine 0.71 Documented by User: Kelsie Ruiz MD 09/04/21 11:44 PMF Past Medical History Medical History Carpal tunnel syndrome Epigastric pain Fatty liver IBS (irritable bowel syndrome) Invasive ductal carcinoma of right breast Irritable bowel syndrome with constipation and diarrhea Left groin pain Lyme disease Sarcoidosis Family History Family History Father History of heart disease History of cardiovascular disorder Mother History of diabetes mellitus History of hypertension History of myocardial infarction History of emphysema Sister History of rheumatoid arthritis Brother History of rheumatoid arthritis Father Substance use disorder Son Substance use disorder Surgical History Surgical History H/O colonoscopy History of bilateral mastectomy (~04/02/17) History of cholecystectomy (~04/15/14) History of left breast biopsy (~2017) History of left mastectomy (~06/09/18) History of lumpectomy of right breast (~1997) History of removal of Port-a-Cath (~02/04/18) History of tonsillectomy History of tubal ligation History of Problems with Anesthesia: No Social History Social History Household Members: Children Housing: House Are you a primary housekeeper child care to a significant other at home: No Do you presently have visiting nurse or other home services: No Alcohol intake: never Patient Tobacco Use Status: Never used Tobacco e-Cigarette/Vaping Use: Never Used Are you DNR?: No Advance Directives: Yes (HCP) Advance Directives Information Provided: Yes Advance Directives on File: Yes (08/13/17) Advance Directives Date on File: 09/04/21 Recently lost weight without trying: No Nutrition Risks: No Nutritional Risk service: No Current occupational status: retired Cognitive needs: No Hearing needs: No Vision needs: No Meds Allergies Allergy/AdvReac Type Severity Reaction Status Date / Time Penicillins Allergy Severe ANAPHYLAXIS Verified 09/04/21 10:54 adhesive tape Allergy Intermediate BLISTERS Verified 06/15/21 09:51 hydrochlorothiazide Allergy Mild PALPITATION, Verified 06/15/21 09:51 PALPITATIONS, palpitations iopromide [From ULTRAVIST] Allergy Mild UTICARIA, Verified 06/15/21 09:51 HIVES latex [LATEX] Allergy Unknown RASH Verified 06/15/21 09:51 methotrexate [METHOTREXATE] AdvReac Severe DIARRHEA-LARGER Verified 06/15/21 09:51 DOSE OF MED chlorthalidone AdvReac Intermediate SHAKY,ANXIE Verified 06/15/21 09:51 [CHLORTHALIDONE] TY sulfamethoxazole AdvReac Intermediate STOMACH Verified 06/15/21 09:51 [SULFAMETHOXAZOLE] PAIN atorvastatin [From LIPITOR] AdvReac Mild MYALGIA Verified 06/15/21 09:51 IVP dye Allergy Unknown redness Uncoded 06/15/21 09:51 and itching Home Medications Medication Instructions Recorded Confirmed Last Taken Type cholecalciferol (vitamin D3) 50 1,000 unit PO DAILY 01/05/21 08/29/21 Unknown History mcg (2,000 unit) capsule vitamin B complex 1 tab PO DAILY 04/17/21 08/29/21 Unknown History vitamins A,C,Q-mrdz-axgkdr 14,320 1 cap PO BID 06/15/21 08/29/21 Unknown History unit-226 mg-200 unit capsule (PreserVision AREDS) Exam Airway Mallampati Class: II TM Dist: >3cm Neck ROM: Full Loose/Missing/Broken Teeth: No Heart: RRR Lungs: CTA Assessment and Plan Final Anesthetic Review History of Problems with Anesthesia: No NPO: Yes ASA Class: II Final Preanesthetic Review: Meds/Allgs Chart Reviewed, Consent Obtained/Reviewed and Anes Risks/Benef Reviewed Patient Risk: Low Procedure Risk: Intermediate Anesthetic Plan Anesthetic Plan: MAC: Disposition: Standard PACU
[2021-09-04] MEDS: Lactated Ringers 1,000 ML 100 ML IVCONT (11:17)
[2021-09-04 11:18] VITALS: BP 125/61; PULSE 95; RESP 18; TEMP 36.6; O2SAT 95
[2021-09-04 13:06] VITALS: BP 99/45; PULSE 102; RESP 21; TEMP 36.4; O2SAT 95
--- NOTE | 2021-09-04 13:13 | PM.OP ---
Brief Operative Note Date of Service: 09/04/21 Pre-op diagnosis: GERD, Screening Post-op diagnosis: other (Gastritis, Gastric polyps, Hiatal hernia, GERD, Colon polyps) Procedure: EGD with biopsies, Colonoscopy to the cecum with bx/removal of polyps Surgeon: Ismael Smith Anesthesia: MAC Was an Solid Surface Fabricator used for this Procedure?: No Estimated blood loss (mL): 2.0 Pathology: other (A. Gastric antrum B. Proximal stomach C. Gastric polyps D. EG Junction at 34cm E. Transverse colon polyp F. Polyp at 50cm polyp F. Polyp at 5 ) Condition: stable Disposition: PACU
[2021-09-04 13:22] VITALS: BP 99/53; PULSE 105; RESP 18; O2SAT 95
[2021-09-04 13:37] VITALS: BP 102/52; PULSE 87; RESP 18; TEMP 36.1; O2SAT 96
--- NOTE | 2021-09-04 13:56 | OP_ITS ---
SURGEON: Ismael Smith MD INDICATIONS: The patient presents for evaluation of gastroesophageal reflux and colorectal cancer screening. Full consent has been obtained for this, including risks of bleeding and perforation. PREOPERATIVE DIAGNOSIS: POSTOPERATIVE DIAGNOSIS: PROCEDURE PERFORMED: Esophagogastroduodenoscopy with biopsies, and colonoscopy to the cecum with biopsy and removal of polyps. ESTIMATED BLOOD LOSS: COMPLICATIONS: ANESTHESIA: Monitored anesthesia care. ASSISTANTS: SPECIMENS: PREOPERATIVE DIAGNOSES: Gastroesophageal reflux and colorectal cancer screening. POSTOPERATIVE DIAGNOSES: Gastroesophageal reflux and colorectal cancer screening, hiatal hernia, gastric polyps, gastritis, colon polyps, diverticulosis and internal hemorrhoids. DESCRIPTION OF PROCEDURE: The patient was placed in the left lateral decubitus position. The Olympus video gastroscope was passed into the posterior oropharynx and upper esophagus under direct vision. The scope was passed slowly into the distal esophagus. The gastroesophageal junction appeared at 34 cm. There was some slight irregularity, but no definitive evidence of Marino mucosa. There was no esophagitis. The scope entered into the stomach. There was a small hiatal hernia. The scope was advanced to pylorus and duodenum was cannulated to the descending portion. The duodenum including the bulb appeared normal without mass or ulceration. The scope was withdrawn back in the stomach. The gastric antrum had some areas of erythema and edema. Biopsies were obtained. There was good peristalsis. The scope was retroflexed visualizing the proximal stomach carefully. There was no mass nor ulceration, but there were multiple hyperplastic appearing gastric polyps as well as some proximal evidence of gastritis. The scope was straightened. Biopsies were obtained from some of the gastric polyps and from the area of gastritis. The scope was withdrawn back in the esophagus. Biopsies were obtained at the EG junction at 34 cm. Proximal to this, the esophageal mucosa appeared normal. The scope was withdrawn from the patient. She was turned around for the colonoscopy. The digital rectal exam revealed no abnormalities. The Olympus video pediatric colonoscope was entered into the rectum and advanced to the cecum with the assistance of abdominal wall pressure. Once in the cecum, I did identify normal-appearing cecal pouch with appendiceal orifice and a normal-appearing ileocecal valve. The entire cecum was well visualized and appeared normal. There was transillumination of light deep in the right lower quadrant. The scope was then slowly withdrawn assessing all mucosal surfaces carefully. Preparation was excellent. In the ascending colon and at 50 cm were flat less than 5 mm polyps, which were each biopsied and completely removed with cold biopsy forceps. I did not visualize any other polyps, colitis, nor angiodysplasia. There was a mild amount of sigmoid diverticulosis. In the rectum, scope was retroflexed visualizing internal hemorrhoids, but no other pathology. The rectal mucosa appeared normal. The scope was straightened and withdrawn from the patient. She tolerated both procedures well and was returned to recovery area in stable condition. IMPRESSION: 1. Small hiatal hernia, gastroesophageal reflux. 2. Gastritis. 3. Gastric polyps. 4. Colon polyps. 5. Diverticulosis. 6. Internal hemorrhoids. PLAN: The results of the biopsies will be checked. If the colon polyps are tubular adenoma, I would recommend a followup colonoscopy in 5 years. If they are only hyperplastic, I would recommend a followup colonoscopy in 10 years. She was advised to continue her daily omeprazole 40 mg. She was advised not to use any aspirin and NSAIDs for least 1 week. MD VERONIQUE Knox/EVERARDO / [id number]
== END 2021-09-04 14:08 | disposition home or self-care (01) ==
PROVIDERS: PCP Internal Medicine; Visit Provider Internal Medicine
PROC: (CPT 45380; principal; 2021-09-04 11:40)
DX: Z12.11 Encounter for screening for malignant neoplasm of colon (principal); D12.3 Benign neoplasm of transverse colon; D12.5 Benign neoplasm of sigmoid colon; K57.30 Diverticulosis of large intestine without perforation or abscess without bleeding; K64.8 Other hemorrhoids; K21.9 Gastro-esophageal reflux disease without esophagitis; K29.50 Unspecified chronic gastritis without bleeding; K31.7 Polyp of stomach and duodenum; K44.9 Diaphragmatic hernia without obstruction or gangrene; K76.0 Fatty (change of) liver, not elsewhere classified; I10 Essential (primary) hypertension; E78.5 Hyperlipidemia, unspecified; J45.909 Unspecified asthma, uncomplicated; H35.30 Unspecified macular degeneration; Z79.899 Other long term (current) drug therapy; Z85.3 Personal history of malignant neoplasm of breast; Z92.21 Personal history of antineoplastic chemotherapy; Z92.3 Personal history of irradiation; Z90.13 Acquired absence of bilateral breasts and nipples; Z88.0 Allergy status to penicillin; Z88.2 Allergy status to sulfonamides; Z88.8 Allergy status to other drugs, medicaments and biological substances; Z91.040 Latex allergy status; Z91.041 Radiographic dye allergy status
CPT/HCPCS: 45380; 43239; 88305; 88342; J2250; J3010

== ENCOUNTER 2021-10-27 10:02 | Outpatient (REF) | payer OTHER, SELFPAY ==
[2021-10-27 11:50] LABS: Phosphorus 3.6 mg/dL (2.7-4.5)
[2021-10-27 12:15] LABS: Free T4 (Free Thyroxine) 0.96 ng/dL (0.71-1.85); Thyroid Stimulating Hormone 1.61 uIU/mL (0.32-4.0)
[2021-10-29 12:52] LABS: Calcium (PTHI) 9.6 mg/dL (8.6-10.4); PTHI 87 pg/mL (16-77)
== END 2021-10-27 10:03 | disposition home or self-care (01) ==
LOC: HO.HMGCLDS 10:02
PROVIDERS: PCP Internal Medicine; Visit Provider Internal Medicine
DX: E04.1 Nontoxic single thyroid nodule (principal); E21.3 Hyperparathyroidism, unspecified; E55.9 Vitamin D deficiency, unspecified
CPT/HCPCS: 36415; 82306; 83970; 84100; 84439; 84443

== ENCOUNTER 2021-10-31 10:17 | Outpatient (REF) | payer OTHER, SELFPAY ==
[2021-10-31 12:15] LABS: Creatinine, mg/dL 90.72
[2021-10-31 13:17] LABS: Creatinine, 24Hr Urine 0.8 G/Day (1.0-2.0); Total Volume 24 Hour Urine 925 mL
[2021-11-02 17:02] LABS: Calcium, 24 Hr Urine 67 mg/24 h; Calcium/Creatinine Ratio 80 mg/g creat (30-275); Creatinine 24Hr Urine 0.83 g/24 h (0.50-2.15)
== END 2021-10-31 10:18 | disposition home or self-care (01) ==
LOC: HO.HMGCLNP 10:17
PROVIDERS: PCP Internal Medicine; Visit Provider Internal Medicine
DX: E21.3 Hyperparathyroidism, unspecified (principal)
CPT/HCPCS: 82340; 82570

== ENCOUNTER → 2021-12-05 13:12 | Outpatient (BNVA) | payer MEDICARE, SELFPAY | PROVIDERS: PCP Internal Medicine; Visit Provider Internal Medicine | DX: M81.0 Age-related osteoporosis without current pathological fracture (principal); E55.9 Vitamin D deficiency, unspecified; E21.3 Hyperparathyroidism, unspecified; E04.1 Nontoxic single thyroid nodule | CPT/HCPCS: 99212 ==

== ENCOUNTER → 2021-12-08 11:16 | Outpatient (BNVA) | payer MEDICARE, SELFPAY | PROVIDERS: PCP Internal Medicine; Visit Provider Surgery | DX: Z85.3 Personal history of malignant neoplasm of breast (principal); Z92.21 Personal history of antineoplastic chemotherapy; Z90.13 Acquired absence of bilateral breasts and nipples | CPT/HCPCS: 99212 ==

== ENCOUNTER 2021-12-21 13:28 | Outpatient (REF) | payer MEDICARE, SELFPAY ==
--- NOTE | ~2021-12-21 | US_ITS ---
EXAMINATION: US DIAGNOSTIC ULTRASOUND BREAST, RIGHT US DIAGNOSTIC ULTRASOUND BREAST, LEFT CLINICAL INFORMATION: Palpable areas along mastectomy scar noted by patient. History organizing hematoma on right for follow-up. Bilateral breast cancer status post right lumpectomy 1997, invasive left breast cancer 2017, bilateral mastectomy 04/02/2017. COMPARISON: Targeted right breast ultrasound 06/12/2021. TECHNIQUE: Ultrasound of both mastectomy areas is performed using grayscale imaging and color Doppler without and with harmonics. Patient is able to point areas of clinical concern at time of imaging. FINDINGS: Right: There is a chronic benign-appearing crescent-shaped circumscribed hypoechoic lesion parallel with chest wall similar to prior exam with internal heterogeneous architecture believed to represent organized hematoma. No associated peripheral or internal color flow. Lesion is slightly decreased in size from prior study. Prior measurements are 5.5 x 0.8 x 4.0 cm and current measurements are 4.4 x 0.8 x 3.0 cm. There is no focal new suspicious finding. There is no interval cystic or solid mass or skin thickening or edema tracking in soft tissue planes. Left: There is some minor scarring seen along the mastectomy scar. There is no cystic or solid mass or architectural abnormality. No skin thickening or hyperemia. No suspicious finding. Results are discussed with the patient at time of visit. US/US breast RT limited IMPRESSION: Right: -Probable organized hematoma along the right mastectomy scar slightly decreased in size, current measurements 4.4 x 0.8 x 3.0 cm (prior measurements 5.5 x 0.8 x 4.0 cm. Left: -No cystic or solid mass. ASSESSMENT: BI-RADS 2: Benign RECOMMENDATION: Patient may be managed based on the clinical impression. If clinically indicated, further imaging could be performed with chest MRI without and with contrast. Otherwise, routine clinical follow-up as usual.
== END 2021-12-21 13:29 | disposition home or self-care (01) ==
LOC: HO.MAMMO 13:28
PROVIDERS: PCP Internal Medicine; Visit Provider Internal Medicine
DX: C50.911 Malignant neoplasm of unspecified site of right female breast (principal); C50.912 Malignant neoplasm of unspecified site of left female breast; Z90.13 Acquired absence of bilateral breasts and nipples
CPT/HCPCS: 76642

== ENCOUNTER 2022-05-02 11:19 | Outpatient (REF) | payer MEDICARE, SELFPAY ==
--- NOTE | ~2022-05-02 | US_ITS ---
EXAMINATION: US THYROID CLINICAL INFORMATION: Nontoxic single thyroid nodule. COMPARISON: Ultrasound thyroid 08/25/2020. US-guided thyroid biopsy 03/30/2021. CT soft tissue neck with contrast 03/18/2018. TECHNIQUE: Linear transducer villafana-scale and color Doppler examination with attention to the region of the thyroid. FINDINGS: SIZE: Measurements of the thyroid lobes and nodules are given in sagittal, anteroposterior and transverse dimensions respectively. Right Thyroid Lobe: 3.6 x 2.0 x 1.7 cm, volume 6.5 mL. Previously 3.5 x 2.1 x 1.5 cm, volume 5.7 mL. Parenchyma: The gland echotexture is homogeneous. Thyroid vascularity is normal. Left Thyroid Lobe: 4.5 x 2.2 x 1.2 cm, volume 6.4 mL. Previously 3.9 x 2.4 x 1.3 cm, volume 6.2 mL. Parenchyma: The gland echotexture is homogeneous. Thyroid vascularity is normal. Isthmus: 0.5 cm in maximum AP dimension. Previously 0.5 cm. Estimated total number of nodules greater than or equal to 1 cm: 0. Employment Adjudicator nodules are described as follows: 1. Location: Right inferior. Size: 0.6 x 0.6 x 0.7 cm, volume 0.15 mL. Previously: 0.9 x 0.6 x 1.0 cm, volume 0.26 mL. Nodule characteristics: Composition: Mixed cystic and solid (1). Echogenicity: Very hypoechoic (3). Shape: Not taller than wide (0). Margins: Smooth (0). Echogenic Foci: Peripheral calcifications (2). ACR TI-RADS total points: 6 Previous: 5 ACR TI-RADS category: 4 Previous: 4 Significant change in size (>/= 20% in 2 dimensions and minimal increase of 2 mm or 50% or greater increase in volume): No Change in features: Yes Change in ACR TI-RADS risk category: No NODES: No lymphadenopathy is seen in the tissue surrounding the thyroid gland. US/US thyroid IMPRESSION: A small right thyroid lobe is redemonstrated, as detailed. ACR TI-RADS RECOMMENDATION REFERENCE: Ultrasound-guided fine-needle aspiration, followup ultrasound, no further follow up. * TR1 (0 point) and TR2 (2 points): No FNA or follow up. * TR3 (3 points): FNA if more than or equal to 2.5 cm in maximum dimension, followup ultrasound in 1, 3 and 5 years if 1.5 to 2.4 cm in maximum dimension. * TR4 (4-6 points): FNA if more than or equal to 1.5 cm in maximum dimension, followup ultrasound in 1, 2, 3 and 5 years if 1 to 1.4 cm in maximum dimension. * TR5 (more than or equal to 7 points): FNA if more than or equal to 1 cm in maximum dimension, followup ultrasound every year for 5 years if 0.5 to 0.9 cm in maximum dimension. * TR3, TR4 or TR5 nodules that are below the size threshold for followup receive no follow up.
== END 2022-05-02 11:20 | disposition home or self-care (01) ==
LOC: HO.HMGCX 11:19
PROVIDERS: PCP Internal Medicine; Visit Provider Internal Medicine
DX: E04.1 Nontoxic single thyroid nodule (principal)
CPT/HCPCS: 76536

== ENCOUNTER → 2022-06-07 09:59 | Outpatient (BNVA) | payer MEDICARE, SELFPAY | PROVIDERS: PCP Internal Medicine; Visit Provider Surgery | DX: C50.912 Malignant neoplasm of unspecified site of left female breast (principal); C50.911 Malignant neoplasm of unspecified site of right female breast; Z17.0 Estrogen receptor positive status [ER+]; Z90.13 Acquired absence of bilateral breasts and nipples; Z92.21 Personal history of antineoplastic chemotherapy; H35.30 Unspecified macular degeneration | CPT/HCPCS: 99212 ==

== ENCOUNTER 2022-06-19 09:31 | Outpatient (REF) | payer MEDICARE, SELFPAY ==
[2022-06-19 12:01] LABS: Alanine Aminotransferase 14 U/L (0-31); Albumin Level 4.6 g/dL (3.5-5.0); Alkaline Phosphatase 94 U/L (39-117); Anion Gap 12 (12-20); Aspartate Amino Transferase 17 U/L (5-31); Bilirubin Total 0.6 mg/dL (0.0-1.0); Blood Urea Nitrogen 16 mg/dL (9-16); Calcium 9.8 mg/dL (8.4-10.2); Carbon Dioxide 32 mmol/L (22-29); Chloride 103 mmol/L (96-108); Cholesterol 245 mg/dL; Estimated Glomerular Filt Rate > 60; Glucose Random 101 mg/dL (60-115); HDL Cholesterol 70 mg/dL; LDL Cholesterol Calculated 156 mg/dl; Phosphorus 3.5 mg/dL (2.7-4.5); Potassium 3.8 mmol/L (3.3-5.1); Sodium 143 mmol/L (135-145); Total Protein 7.1 g/dL (6.5-8.0); Triglycerides 98 mg/dL
[2022-06-19 12:24] LABS: Thyroid Stimulating Hormone 1.72 uIU/mL (0.32-4.0)
[2022-06-20 13:49] LABS: PTHI 88 pg/mL (16-77)
== END 2022-06-19 09:32 | disposition home or self-care (01) ==
LOC: HO.HMGCLDS 09:31
PROVIDERS: Internal Medicine; PCP Internal Medicine; Visit Provider Internal Medicine
DX: E04.1 Nontoxic single thyroid nodule (principal); M81.0 Age-related osteoporosis without current pathological fracture; E55.9 Vitamin D deficiency, unspecified; E78.5 Hyperlipidemia, unspecified
CPT/HCPCS: 36415; 80053; 80061; 82306; 83970; 84100; 84439; 84443

== ENCOUNTER → 2022-07-02 11:41 | Outpatient (BNVA) | payer MEDICARE, SELFPAY | PROVIDERS: PCP Internal Medicine; Visit Provider Internal Medicine | DX: M81.0 Age-related osteoporosis without current pathological fracture (principal); E55.9 Vitamin D deficiency, unspecified; E21.3 Hyperparathyroidism, unspecified; E04.1 Nontoxic single thyroid nodule | CPT/HCPCS: 99212 ==

== ENCOUNTER 2022-07-23 10:59 | Outpatient (REF) | payer MEDICARE, SELFPAY ==
--- NOTE | ~2022-07-23 | MM_ITS ---
EXAMINATION: BONE DENSITOMETRY CLINICAL INDICATION: Age-related osteoporosis without current pathological fracture. COMPARISON: Previous BD dated 06/21/2020 and baseline BD dated 08/17/2008. TECHNIQUE: Using a [employer] DXA System (software version: 13.1) manufactured by [employer], dual-energy x-ray absorptiometry was performed of the lumbar spine and left hip. The images are of good technical quality. Summary results are attached. FINDINGS: AP SPINE L1-L4: Current: BMD 1.043 g/cm2, Z-score -0.1, T-score -1.1, osteopenia, 0.1% decrease from previous, 2.0% decrease from baseline (<5% change is not significant). Prior: BMD 1.044 g/cm2. Baseline: BMD 1.064 g/cm2. LEFT FEMUR, NECK: Current: BMD 0.758 g/cm2, Z-score -0.9, T-score -2.0, osteopenia. Prior: BMD 0.683 g/cm2. Baseline: BMD 0.825 g/cm2. LEFT FEMUR, TOTAL: Current: BMD 0.847 g/cm2, Z-score -0.5, T-score -1.3, osteopenia, 9.6% increase from previous, 5.5% decrease from baseline (<5% change is not significant). Prior: BMD 0.773 g/cm2. Baseline: BMD 0.896 g/cm2. IDENTIFIED RISK FACTORS: Early menopause, secondary osteoporosis, glucocorticoids (chronic), height loss, osteoporosis. HISTORY OF FRACTURE: None listed. MEDICATIONS: Vitamin D. MM/XR DEXA appendicular skeleton IMPRESSION: 1. DIAGNOSIS: Osteopenia based on the lowest T-score value of -2.0 in the femoral neck applying World Health Organization criteria. 2. 10-YEAR FRACTURE RISK PREDICTION, FRAX: Major osteoporotic fracture (clinical spine, forearm, hip or shoulder) 16.3%. Hip fracture 2.9%. 3. Treatment Recommendations: NOF guidelines recommend consideration for treatment in postmenopausal women and men age 50 and older presenting with the following: -A hip or vertebral (clinical or morphometric) fracture. -T-score less than or equal to -2.5 at the femoral neck or spine after appropriate evaluation to exclude secondary causes. -Low bone mass at the hip or spine and a 10-year fracture probability by FRAX of greater than or equal to 3% for hip fracture or greater than or equal to 20% for major osteoporotic fracture based on the [place] adapted WHO algorithm. 4. Other Recommendations: All treatment decisions require clinical judgment and consideration of individual patient factors, including patient preferences, comorbidities, previous drug use, risk factors not captured in the FRAX model (e.g. frailty, falls, vitamin D deficiency, increased bone turnover, interval significant decline in bone density) and possible under or overestimation of fracture risk by FRAX. Additional medical evaluation for secondary cause of low bone mineral density may be appropriate. FUTURE SCAN RECOMMENDATION: People with diagnosed cases of osteoporosis or at high risk for fracture should have regular bone mineral density tests. For patients eligible for Medicare, routine testing is allowed once every 2 years. The testing frequency can be increased to one year for patients who have rapidly progressing disease, those who are receiving or discontinuing medical therapy to restore bone mass, or have additional risk factors.
== END 2022-07-23 11:00 | disposition home or self-care (01) ==
LOC: HO.MAMMO 10:59
PROVIDERS: PCP Internal Medicine; Visit Provider Internal Medicine
DX: M81.0 Age-related osteoporosis without current pathological fracture (principal)
CPT/HCPCS: 77081

== ENCOUNTER 2022-10-17 09:48 | Outpatient (REF) | payer MEDICARE, SELFPAY ==
[2022-10-17 14:35] LABS: Alanine Aminotransferase 14 U/L (0-31); Albumin Level 4.4 g/dL (3.5-5.0); Alkaline Phosphatase 70 U/L (39-117); Anion Gap 13 (12-20); Aspartate Amino Transferase 18 U/L (5-31); Bilirubin Total 0.4 mg/dL (0.0-1.0); Blood Urea Nitrogen 22 mg/dL (9-16); Calcium 10.1 mg/dL (8.4-10.2); Carbon Dioxide 30 mmol/L (22-29); Chloride 105 mmol/L (96-108); Estimated Glomerular Filt Rate > 60; Glucose Random 106 mg/dL (60-115); Phosphorus 3.4 mg/dL (2.7-4.5); Potassium 4.3 mmol/L (3.3-5.1); Sodium 144 mmol/L (135-145); Total Protein 7.4 g/dL (6.5-8.0)
[2022-10-17 14:59] LABS: Free T4 (Free Thyroxine) 1.02 ng/dL (0.71-1.85); Thyroid Stimulating Hormone 1.47 uIU/mL (0.32-4.0); Vitamin D 25-OH Total 43.3 ng/mL (>30)
[2022-10-19 19:38] LABS: Calcium (PTHI) 9.6 mg/dL (8.6-10.4); PTHI 96 pg/mL (16-77)
== END 2022-10-17 09:49 | disposition home or self-care (01) ==
LOC: HO.HMGCLDS 09:48
PROVIDERS: PCP Internal Medicine; Visit Provider Internal Medicine
DX: E04.1 Nontoxic single thyroid nodule (principal); M81.0 Age-related osteoporosis without current pathological fracture; E55.9 Vitamin D deficiency, unspecified
CPT/HCPCS: 36415; 80053; 82306; 83970; 84100; 84439; 84443

== ENCOUNTER 2022-10-19 08:00 | Outpatient (REF) | payer MEDICARE, SELFPAY ==
[2022-10-19 17:12] LABS: Creatinine, mg/dL 50.76
[2022-10-19 17:43] LABS: Creatinine, 24Hr Urine 1.1 G/Day (1.0-2.0); Total Volume 24 Hour Urine 2175 mL
[2022-10-20 18:03] LABS: Calcium, 24 Hr Urine 104 mg/24 h; Calcium/Creatinine Ratio 102 mg/g creat (30-275); Creatinine 24Hr Urine 1.02 g/24 h (0.50-2.15)
== END 2022-10-19 08:01 | disposition home or self-care (01) ==
LOC: HO.HMGCLNP 08:00
PROVIDERS: PCP Internal Medicine; Visit Provider Internal Medicine
DX: M81.0 Age-related osteoporosis without current pathological fracture (principal)
CPT/HCPCS: 82340; 82570

== ENCOUNTER 2022-10-29 09:26 | Outpatient (AMB) | payer MEDICARE, SELFPAY ==
--- NOTE | 2022-10-29 09:26 | A.OFFVIS_ITS ---
Intake Intake Visit Reasons: F/U Osteoporosis, needs 30 minutes Intake Note: Osteoporosis follow up visit. 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 Required: No Allergies Penicillins Allergy (Severe, Verified 10/29/22 12:48) ANAPHYLAXIS adhesive tape Allergy (Intermediate, Verified 10/29/22 12:48) BLISTERS hydrochlorothiazide Allergy (Mild, Verified 10/29/22 12:48) PALPITATION, PALPITATIONS, palpitations iopromide [From ULTRAVIST] Allergy (Mild, Verified 10/29/22 12:48) UTICARIA, HIVES latex [LATEX] Allergy (Unknown, Verified 10/29/22 12:48) RASH methotrexate [METHOTREXATE] Adverse Reaction (Severe, Verified 10/29/22 12:48) DIARRHEA-LARGER DOSE OF MED chlorthalidone [CHLORTHALIDONE] Adverse Reaction (Intermediate, Verified 10/29/22 12:48) SHAKY,ANXIETY sulfamethoxazole [SULFAMETHOXAZOLE] Adverse Reaction (Intermediate, Verified 10/29/22 12:48) STOMACH PAIN atorvastatin [From LIPITOR] Adverse Reaction (Mild, Verified 10/29/22 12:48) MYALGIA IVP dye Allergy (Unknown, Uncoded 10/29/22 12:48) redness and itching Medication List - Last Reconciled 10/29/22 by Tawny Hooks DO aflibercept 2 mg intravitreal Q12W amlodipine 10 mg PO DAILY cetirizine 10 mg PO DAILY cholecalciferol (vitamin D3) 1,000 units PO DAILY diclofenac sodium 1% (Arthritis Pain (diclofenac)) 2 grams topical QID PRN doxazosin 2 mg PO BEDTIME olmesartan 20 mg PO QAM omeprazole 40 mg PO DAILY ProAir HFA 90 mcg/actuation (albuterol sulfate) 2 puffs inhalation Q6H PRN NS vitamin B complex 1 tab PO DAILY vitamins A,C,K-amfz-kxctzb 4,296 mcg-226 mg-90 mg (PreserVision AREDS) 1 cap PO BID HPI HPI Comments History of Present Illness Details 66 YO Female with PMHx Breast cancer and Sarcoidosis is seen in F/U for Osteoporosis. She has a history of breast cancer x 2. In the she was diagnosed on the R side and underwent Chemo-radiation. She then developed it on the L side and underwent a bilateral mastectomy and a second round of chemotherapy. She received Tamoxifen for 5 years beginning in 1997. She was never treated with an aromatase inhibitor as her tumor is triple negative. She has been following with Dr. Herrera. First diagnosed with Osteopenia, but her most recent BMD in 2020 revealed Osteoporosis of the hip. She has never been treated for this. After her initial visit we completed a full biochemical evaluation which revealed concern for hyperparathyroidism with PTH 99, Albumin 4.4, Calcium 9.9 and Vitamin D 27. 24 hour urinary calcium was WNL. Labs repeated 11/24/2020 with Albumin Calcium 9.5, Albumin 4.5, PTH 93 and Vitamin D 27.1. Labs repeated again 06/02/2021 with Calcium 9.7, Albumin 4.2, PTH 96 and Vitamin D 26.8. Her most recent labs reveal her 24 hour urinary calcium to be low. He had an US of the neck which revealed no obvious parathyroid adenoma, but did reveal a solitary thyroid nodule. She underwent FNA biopsy of this 1.0 cm RMP thyroid nodule 03/30/2021, with benign (bethesda category II) cytology. No history of pathologic fracture or ONJ. Has 2-3 servings of dietary calcium per day in the form of almond milk or yogurt. Does not take a Calcium supplement. Takes 1000 IU of Vitamin D daily. She was taking Calcium citrate 600 mg PO BID but was unable to tolerate this due to GI distress. Does use omeprazole daily. Was treated with a full year course of Prednisone for her sarcoidosis, but has been off of this for a few years now. Denies ever using an anticoagulant or antiepileptic medication. Does no formal scheduled weight bearing exercise. 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 Menses were regular. She is . She did not breastfeed. Menopause was age 41. She did not use HRT. Denies history of Kidney stones: Denies family history of Osteoporosis or hip fracture. UTD on dental cleanings and sees dentist every 6 months. No planned upcoming dental work or extractions. DXA: 07/23/2022 FINDINGS: AP SPINE L1-L4: Current: BMD 1.043 g/cm2, Z-score -0.1, T-score -1.1, osteopenia, 0.1% decrease from previous, 2.0% decrease from baseline (<5% change is not significant). Prior: BMD 1.044 g/cm2. Baseline: BMD 1.064 g/cm2. LEFT FEMUR, NECK: Current: BMD 0.758 g/cm2, Z-score -0.9, T-score -2.0, osteopenia. Prior: BMD 0.683 g/cm2. Baseline: BMD 0.825 g/cm2. LEFT FEMUR, TOTAL: Current: BMD 0.847 g/cm2, Z-score -0.5, T-score -1.3, osteopenia, 9.6% increase from previous, 5.5% decrease from baseline (<5% change is not significant). Prior: BMD 0.773 g/cm2. Baseline: BMD 0.896 g/cm2. Thyroid US: 05/02/2022 Right Thyroid Lobe: 3.6 x 2.0 x 1.7 cm, volume 6.5 mL. Previously 3.5 x 2.1 x 1.5 cm, volume 5.7 mL. Parenchyma: The gland echotexture is homogeneous. Thyroid vascularity is normal. Left Thyroid Lobe: 4.5 x 2.2 x 1.2 cm, volume 6.4 mL. Previously 3.9 x 2.4 x 1.3 cm, volume 6.2 mL. Parenchyma: The gland echotexture is homogeneous. Thyroid vascularity is normal. Isthmus: 0.5 cm in maximum AP dimension. Previously 0.5 cm. Estimated total number of nodules greater than or equal to 1 cm: 0. Pool Table Operator nodules are described as follows: 1.? Location: Right inferior. ?? ? Size: 0.6 x 0.6 x 0.7 cm, volume 0.15 mL. ?? ? Previously: 0.9 x 0.6 x 1.0 cm, volume 0.26 mL. ?? ? Nodule characteristics: ?? ? Composition: Mixed cystic and solid (1). ?? ? Echogenicity: Very hypoechoic (3). ?? ? Shape: Not taller than wide (0). ?? ? Margins: Smooth (0). ?? ? Echogenic Foci: Peripheral calcifications (2). ? ACR TI-RADS total points: 6 Previous: 5 ?? ? ACR TI-RADS category: 4 Previous: 4 ? Significant change in size (>/= 20% in 2 dimensions and minimal increase of 2 mm or 50% or greater increase in volume): No ?? ? Change in features: Yes ?? ? Change in ACR TI-RADS risk category: No NODES: No lymphadenopathy is seen in the tissue surrounding the thyroid gland. Labs: Laboratory Tests 10/17/22 10/17/22 10/19/22 10:07 10:07 08:00 Albumin 4.4 25-OH Vitamin D To marvin 43.3 TSH 1.47 Free T4 1.02 PTH Intact 96 H Calcium (PTH Intac t) 9.6 Ur 24 Hour Volume Ur Creatinine 24 H our Ur Calcium 24 Hr 104 10/19/22 08:00 Albumin 25-OH Vitamin D To marvin TSH Free T4 PTH Intact Calcium (PTH Intac t) Ur 24 Hour Volume 2175 Ur Creatinine 24 H our 1.1 Ur Calcium 24 Hr PFSH Medical History Carpal tunnel syndrome Dyslipidemia Epigastric pain Essential hypertension Fatty liver GERD (gastroesophageal reflux disease) History of breast cancer Hyperparathyroidism IBS (irritable bowel syndrome) Impaired fasting glucose Internal hemorrhoids Invasive ductal carcinoma of right breast Irritable bowel syndrome with constipation and diarrhea Left groin pain Lyme disease Macular degeneration Menopause, premature Osteopenia of left femoral neck Osteoporosis Sarcoidosis Thyroid nodule Vitamin D deficiency Surgical History H/O colonoscopy History of bilateral mastectomy (~04/02/17) History of cholecystectomy (~04/15/14) History of left breast biopsy (~2017) History of left mastectomy (~06/09/18) History of lumpectomy of right breast (~1997) History of removal of Port-a-Cath (~02/04/18) History of tonsillectomy History of tubal ligation Family History Father History of heart disease History of cardiovascular disorder Mother History of diabetes mellitus History of hypertension History of myocardial infarction History of emphysema Sister History of rheumatoid arthritis Brother History of rheumatoid arthritis Father Substance use disorder Son Substance use disorder Social History Household Members: Children Housing: House Are you a primary primary care nurse practitioner to a significant other at home: No Do you presently have visiting nurse or other home services: No Alcohol intake: never Patient Tobacco Use Status: Never used Tobacco e-Cigarette/Vaping Use: Never Used Advance Directives Date on File: 09/04/21 service: No Current occupational status: retired Cognitive needs: No Hearing needs: No Vision needs: No Assessment & Plan Assessment & Plan (1) Osteoporosis: Code(s): M81.0 - Age-related osteoporosis without current pathological fracture Plan: Patient with Osteoporosis of the hip, and Osteopenia of the spine. Risk factors include prior prednisone use, daily omeprazole use as well as premature ovarian failure. Her labs are concerning for hyperparathyroidism, but I do suspect this is secondary hyperparathyroidism given her low 24 hour urine calcium. She is unable to tolerate oral calcium supplementation. I have asked her to increase her almond milk to 3 glasses per day and to repeat labs in 6 months time. She had a significant increase in her hip and her BMD, she is now in the osteopenic range. We have reviewed fall prevention. All of her questions were answered. She is in agreement with this plan of care. I spent 20 minutes in reviewing the record, seeing the patient and documenting in the medical record, including 5 minutes on the phone with the Patient. (2) Vitamin D deficiency: Code(s): E55.9 - Vitamin D deficiency, unspecified Plan: Vitamin D at goal. No changes. (3) Hyperparathyroidism: Code(s): E21.3 - Hyperparathyroidism, unspecified Plan: Management as per Osteoporosis section. (4) Thyroid nodule: Code(s): E04.1 - Nontoxic single thyroid nodule Plan: She underwent FNA biopsy of her RMP 1.0 cm thyroid nodule 03/30/2021 with benign cytology. No changes on US. Will continue with yearly surveillance. Telehealth Telehealth Location of provider rendering services: practice address Location of patient: address on file Patient Identification confirmed using: Name, : Yes Telehealth method: voice only Patient verbally consented to treatment: Yes Patient verbally consented to billing insurance company: Yes Patient informed of any privacy concerns related to visit: Yes Coding Level of Care Code Tele Est Pt Level 3 (28962) Diagnoses Osteoporosis M81.0 Vitamin D deficiency E55.9 Hyperparathyroidism E21.3 Thyroid nodule E04.1
== END 2022-10-29 14:41 | disposition home or self-care (01) ==
LOC: HO.ENCR 09:26
PROVIDERS: PCP Internal Medicine; Visit Provider Internal Medicine
DX: M81.0 Age-related osteoporosis without current pathological fracture (principal); E55.9 Vitamin D deficiency, unspecified; E21.3 Hyperparathyroidism, unspecified; E04.1 Nontoxic single thyroid nodule
CPT/HCPCS: 99441

== ENCOUNTER → 2022-10-29 09:26 | Outpatient (BNVA) | payer MEDICARE, SELFPAY | PROVIDERS: PCP Internal Medicine; Visit Provider Internal Medicine ==

== ENCOUNTER 2022-12-17 10:46 | Outpatient (AMB) | payer MEDICARE, SELFPAY ==
[2022-12-17 10:58] VITALS: BP 110/70; PULSE 82; O2SAT 96; BMI 34.0
--- NOTE | 2022-12-17 10:58 | A.OFFPC_ITS ---
<Statement entered by Ingrid Vieyra MD - 07/15/24 15:23> This note has been administratively?closed. Vital Signs 12/17/22 10:58 Height 5 ft 1 in Weight 180 lb BMI 34.0 BP 110/70 Blood Pressure Location Lt brachial Position Sitting Pulse 82 Pulse Source Pulse Oximeter Pulse Oximetry (%) 96 Oxygen Delivery Method Room Air Intake Visit Reasons: 6m follow up thyroid Intake Note: Pt is here today for her 6mo. f/u thyriod Allergies Penicillins Allergy (Severe, Verified 12/17/22 11:26) ANAPHYLAXIS adhesive tape Allergy (Intermediate, Verified 12/17/22 11:26) BLISTERS hydrochlorothiazide Allergy (Mild, Verified 12/17/22 11:26) PALPITATION, PALPITATIONS, palpitations iopromide [From ULTRAVIST] Allergy (Mild, Verified 12/17/22 11:26) UTICARIA, HIVES latex [LATEX] Allergy (Unknown, Verified 12/17/22 11:26) RASH methotrexate [METHOTREXATE] Adverse Reaction (Severe, Verified 12/17/22 11:26) DIARRHEA-LARGER DOSE OF MED chlorthalidone [CHLORTHALIDONE] Adverse Reaction (Intermediate, Verified 12/17/22 11:26) SHAKY,ANXIETY sulfamethoxazole [SULFAMETHOXAZOLE] Adverse Reaction (Intermediate, Verified 12/17/22 11:26) STOMACH PAIN atorvastatin [From LIPITOR] Adverse Reaction (Mild, Verified 12/17/22 11:26) MYALGIA IVP dye Allergy (Unknown, Uncoded 12/17/22 11:26) redness and itching Medication List - Last Reconciled 12/17/22 by Ingrid Vieyra MD aflibercept 2 mg intravitreal Q12W amlodipine 10 mg PO DAILY cetirizine 10 mg PO DAILY cholecalciferol (vitamin D3) 1,000 units PO DAILY diclofenac sodium 1% (Arthritis Pain (diclofenac)) 2 grams topical QID PRN doxazosin 2 mg PO BEDTIME olmesartan 20 mg PO QAM omeprazole 40 mg PO DAILY ProAir HFA 90 mcg/actuation (albuterol sulfate) 2 puffs inhalation Q6H PRN NS vitamin B complex 1 tab PO DAILY vitamins A,C,U-tujl-pngyrf 4,296 mcg-226 mg-90 mg (PreserVision AREDS) 1 cap PO BID Tobacco use date assessed: 06/18/22 Fall risk assessment: No Falls in past year Last assessed Fall Risk: 12/17/22 Dental Screening Dental Screen Date: 12/17/22 Did you have a dental visit in the last 12 months?: Yes Did you have a dental problem in the last 6 months where you did not have access to dental care?: No Was dental information given to patient?: Patient has dentist [facility] Medical History Impaired fasting glucose Dyslipidemia Left groin pain Thyroid nodule Hyperparathyroidism Internal hemorrhoids Vitamin D deficiency Osteoporosis History of breast cancer Menopause, premature Osteopenia of left femoral neck Macular degeneration Irritable bowel syndrome with constipation and diarrhea Epigastric pain Essential hypertension Invasive ductal carcinoma of right breast Carpal tunnel syndrome Fatty liver IBS (irritable bowel syndrome) Lyme disease GERD (gastroesophageal reflux disease) Sarcoidosis Surgical History H/O colonoscopy History of left mastectomy (~06/09/18) History of removal of Port-a-Cath (~02/04/18) History of bilateral mastectomy (~04/02/17) History of left breast biopsy (~2017) History of cholecystectomy (~04/15/14) History of tubal ligation History of tonsillectomy History of lumpectomy of right breast (~1997) Family History Father History of heart disease History of cardiovascular disorder Mother History of diabetes mellitus History of hypertension History of myocardial infarction History of emphysema Sister History of rheumatoid arthritis Brother History of rheumatoid arthritis Father Substance use disorder Son Substance use disorder Social History Household Members: Children Housing: House Are you a primary patient care technician to a significant other at home: No Do you presently have visiting nurse or other home services: No Alcohol intake: never Patient Tobacco Use Status: Never used Tobacco e-Cigarette/Vaping Use: Never Used Advance Directives Date on File: 09/04/21 service: No Current occupational status: retired Cognitive needs: No Hearing needs: No Vision needs: No Questionnaire Thrive Questionnaire Date Thrive assessed: 06/18/22 GABRIEL-7 AMB Questionnaire GABRIEL-7 Date GABRIEL - 7 assessed: 03/16/21 Source: Developed by Drs. Ismael Bazan, Josephine Medellin, Chris Guerrero and colleagues, with an educational lea from [employer] Physical exam (Primary Care) Vital Signs: Last Vital Signs Pulse 82 12/17/22 10:58 BP 110/70 12/17/22 10:58 Pulse Ox 96 12/17/22 10:58 Oxygen Delivery Method Room Air 12/17/22 10:58 BMI result Body Mass Index 34.0 Tobacco/Smoking Status: Tobacco use Status Tobacco use date assessed 06/18/22 12/17/22 11:05 Patient Tobacco Use Status Never used Tobacco 12/17/22 11:05 e-Cigarette/Vaping Use Never Used 12/17/22 11:05 Thrive Assessment: Date of Thrive Assessment Date Thrive assessed 06/18/22 12/17/22 11:05 Results Reviewed Results Reviewed: SPEC : [id number] JT: 11/30/22 STATUS: COMP REQ : [id number] RECD: 11/30/[address]: Corrie Herrera MD COMP: 11/30/22 ENTERED: 11/30/[address]: Ingrid Vieyra MD ORDERED: CBC Auto Diff Test Result Flag Reference Site WBC 4.8 4.8-10.8 X10*3/uL RBC 4.32 4.20-5.50 X10*6/uL HGB 13.2 12.0-16.0 g/dl HCT 39.1 37.0-47.0 % MCV 90.5 80.0-98.0 fL MCH 30.6 27.0-33.0 pg MCHC 33.8 31.0-35.0 g/dl RDW 12.6 11.0-16.0 % PLT 160 160-400 X10*3/uL SPEC : [id number] JT: 11/30/22 STATUS: COMP REQ : [id number] RECD: 11/30/[address]: Corrie Herrera MD COMP: 11/30/22 ENTERED: 11/30/[address]: Ingrid Vieyra MD ORDERED: CMP, Vitamin D 25-OH/R Test Result Flag Reference Site Sodium 141 135-145 mmol/L Potassium 3.9 3.3-5.1 mmol/L CL 104 96-108 mmol/L CO2 28 22-29 mmol/L Gap 13 12-20 BUN 19 H 9-16 mg/dL Creat 0.70 0.5-1.4 mg/dL Estimated CrCl 76.7 Provided height and weight: 154.94 cm, 81.9 kg. eGFR (calculated from the MDRD study equation) and eCrCl (calculated from the Cockcroft-Gault equation) are based on different parameters and may not yield comparable results. If eCrCl result is absurd, please check patient's height/weight. EGFR > 60 NOTE: For -[place] individuals, multiply the result by 1.210. Chronic Kidney Disease: Estimated GFR < 60 mL/min/1.73m2 Severe Kidney Disease: Estimated GFR < 15 mL/min/1.7 3m2 Glucose, Random 135 H 60-115 mg/dL CA 9.6 8.4-10.2 mg/dL Total Bili 0.4 0.0-1.0 mg/dL AST (GOT) 20 5-31 U/L ALT (GPT) 14 0-31 U/L Protein, Total 7.4 6.5-8.0 g/dL Alb 4.5 3.5-5.0 g/dL Alk Phos 72 39-117 U/L Vit D 25-OH Tot 38.7 >30 ng/mL Health Based Reference Values* < 20 ng/mL Deficient 20-30 ng/mL Insufficient > 30 ng/mL Sufficient ENTERED: 10/17/22-954 [facility] DR: Ingrid Vieyra MD ORDERED: CMP, Phos, Vitamin D 25-OH, Free T4, TSH Test Result Flag Reference Site Sodium 144 135-145 mmol/L Potassium 4.3 3.3-5.1 mmol/L CL 105 96-108 mmol/L CO2 30 H 22-29 mmol/L Gap 13 12-20 BUN 22 H 9-16 mg/dL Creat 0.74 0.5-1.4 mg/dL EGFR > 60 NOTE: For -[place] individuals, multiply the result by 1.210. Chronic Kidney Disease: Estimated GFR < 60 mL/m in/1.73m2 Severe Kidney Disease: Estimated GFR < 15 mL/min/1.73m2 Glucose, Random 106 60-115 mg/dL CA 10.1 8.4-10.2 mg/dL Phosphorus 3.4 2.7-4.5 mg/dL Total Bili 0.4 0.0-1.0 mg/dL AST (GOT) 18 5-31 U/L ALT (GPT) 14 0-31 U/L Protein, Total 7.4 6.5-8.0 g/dL Alb 4.4 3.5-5.0 g/dL Alk Phos 70 39-117 U/L Vit D 25-OH Tot 43.3 >30 ng/mL Health Based Reference Values* < 20 ng/mL Deficient 20-30 ng/mL Insufficient > 30 ng/mL Sufficient *Lupillo FERRERA. N Engl J Med. 2007;357:266-280 Care must be taken in interpreting Vitamin D results from different laboratories and methodologies. Published data demonstrated that results from patients undergoing hemodialysis may show a negative bias when tested with various automated 25-OH vitamin D assays when compared to LC-MS/MS. When testing samples from patients whose predominant form of Vitamin D is Vitamin D2, such as patients receiving Vitamin D2 supplementation, results that are subtherapeutic should be confirmed with another method such as LC-MS/MS. Free T4 1.02 0.71-1.85 ng/dL TSH 3rd Gen. 1.47 0.32-4.0 uIU/mL TSH 3rd Generation ([facility]) Assessment and Plan Assessment & Plan (1) Hyperparathyroidism: Code(s): E21.3 - Hyperparathyroidism, unspecified (2) Thyroid nodule: Code(s): E04.1 - Nontoxic single thyroid nodule Orders: Orders Free T4 (Free Thyroxine) 3 Months E03.9 - Hypothyroidism, unspecified, E04.1 - Nontoxic single thyroid nodule, E21.3 - Hyperparathyroidism, unspecified Thyroid Stimulating Hormone Today E04.1 - Nontoxic single thyroid nodule, E21.3 - Hyperparathyroidism, unspecified Parathyroid Hormone Related Pr Today E04.1 - Nontoxic single thyroid nodule, E21.3 - Hyperparathyroidism, unspecified Coding Level of Care Code Est Pt Level 3 (19108) Diagnoses Hyperparathyroidism E21.3 Thyroid nodule E04.1
== END 2022-12-17 11:45 | disposition home or self-care (01) ==
PROVIDERS: Visit Provider Internal Medicine
DX: E21.3 Hyperparathyroidism, unspecified (principal); E04.1 Nontoxic single thyroid nodule
CPT/HCPCS: 99499

== ENCOUNTER 2022-12-17 11:45 | Outpatient (REF) | payer MEDICARE, SELFPAY ==
[2022-12-22 21:04] LABS: Parathyroid Hormone Related Pr 16 pg/mL (11-20)
== END 2022-12-17 11:46 | disposition home or self-care (01) ==
LOC: HO.HMGCLDS 11:45
PROVIDERS: PCP Internal Medicine; Visit Provider Internal Medicine
DX: E21.3 Hyperparathyroidism, unspecified (principal); E04.1 Nontoxic single thyroid nodule
CPT/HCPCS: 36415; 83519; 84443

== ENCOUNTER 2023-03-22 08:07 | Outpatient (AMB) | payer MEDICARE, SELFPAY ==
--- NOTE | 2023-03-22 08:14 | MHC.OFFWIV ---
Intake Vital Signs 03/22/23 08:15 Height 5 ft 1 in Weight 180 lb BMI 34.0 BP 120/70 Blood Pressure Location Rt brachial Position Sitting Pulse 89 Pulse Source Pulse Oximeter Temp 97.9 F Temp Source Temporal Artery Scan Pulse Oximetry (%) 97 Intake Visit Reasons: EST/pain in right leg (lobby) Intake Note: pt is here for c.o pain in right leg Patient Tobacco Use Status: Never used Tobacco Allergies Penicillins Allergy (Severe, Verified 03/22/23 08:15) ANAPHYLAXIS adhesive tape Allergy (Intermediate, Verified 03/22/23 08:15) BLISTERS hydrochlorothiazide Allergy (Mild, Verified 03/22/23 08:15) PALPITATION, PALPITATIONS, palpitations iopromide [From ULTRAVIST] Allergy (Mild, Verified 03/22/23 08:15) UTICARIA, HIVES latex [LATEX] Allergy (Unknown, Verified 03/22/23 08:15) RASH methotrexate [METHOTREXATE] Adverse Reaction (Severe, Verified 03/22/23 08:15) DIARRHEA-LARGER DOSE OF MED chlorthalidone [CHLORTHALIDONE] Adverse Reaction (Intermediate, Verified 03/22/23 08:15) SHAKY,ANXIETY sulfamethoxazole [SULFAMETHOXAZOLE] Adverse Reaction (Intermediate, Verified 03/22/23 08:15) STOMACH PAIN atorvastatin [From LIPITOR] Adverse Reaction (Mild, Verified 03/22/23 08:15) MYALGIA IVP dye Allergy (Unknown, Uncoded 12/17/22 11:26) redness and itching Do you need a note to return to daycare/school/sports/work: Yes HPI HPI Comments History of Present Illness Details This is a 67-year-old female who presents to the office today for sick visit. Patient complaining of right lower extremity pain and swelling x 2 months. 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 She states the pain is constant but waxes/wanes in severity. The pain sometimes starts at her buttock and radiates down into her right leg. She describes the pain as achy/crampy. She states she is concerned about a blockage in her leg. She occasionally gets numbness in her right foot. She states the right leg is occasionally more swollen than the right leg. She states the swelling seems to occur after standing for a long period of time. She reports a history of hypertension, asthma, and breast cancer in remission. [facility] Medical History Impaired fasting glucose Dyslipidemia Left groin pain Thyroid nodule Hyperparathyroidism Internal hemorrhoids Vitamin D deficiency Osteoporosis History of breast cancer Menopause, premature Osteopenia of left femoral neck Macular degeneration Irritable bowel syndrome with constipation and diarrhea Epigastric pain Essential hypertension Invasive ductal carcinoma of right breast Carpal tunnel syndrome Fatty liver IBS (irritable bowel syndrome) Lyme disease GERD (gastroesophageal reflux disease) Sarcoidosis Surgical History H/O colonoscopy History of left mastectomy (~06/09/18) History of removal of Port-a-Cath (~02/04/18) History of bilateral mastectomy (~04/02/17) History of left breast biopsy (~2017) History of cholecystectomy (~04/15/14) History of tubal ligation History of tonsillectomy History of lumpectomy of right breast (~1997) Family History Father History of heart disease History of cardiovascular disorder Mother History of diabetes mellitus History of hypertension History of myocardial infarction History of emphysema Sister History of rheumatoid arthritis Brother History of rheumatoid arthritis Father Substance use disorder Son Substance use disorder Social History Household Members: Children Housing: House Are you a primary post acute care nurse practitioner to a significant other at home: No Do you presently have visiting nurse or other home services: No Alcohol intake: never Patient Tobacco Use Status: Never used Tobacco e-Cigarette/Vaping Use: Never Used Advance Directives Date on File: 09/04/21 service: No Current occupational status: retired Cognitive needs: No Hearing needs: No Vision needs: No Review of Systems Const All systems reviewed & are unremarkable except as noted in HPI and below Reports no additional complaints Eyes Reports no additional complaints ENT Reports no additional complaints Card Reports no additional complaints Resp Reports no additional complaints GI Reports no additional complaints Reports no additional complaints Musc Reports no additional complaints Skin/Breast Reports system reviewed and no additional complaints, except as documented Neuro Reports no additional complaints Psych Reports no additional complaints Endo Reports no additional complaints Ben/Lymph Reports no additional complaints Aller/Immun Reports no additional complaints Physical Exam Vital Signs: Last Vital Signs Temp 97.9 F 03/22/23 08:15 Pulse 89 03/22/23 08:15 BP 120/70 03/22/23 08:15 Pulse Ox 97 03/22/23 08:15 BMI result Body Mass Index 34.0 Const Other: Vital signs reviewed. Constitutional: Non-toxic appearing. No acute distress. Well-developed and well-nourished. HEENT: Normocephalic and atraumatic. Skin: Warm and dry. No rashes or lesions noted. Neck: Full and painless range of motion. No cervical lymphadenopathy. Cardio: Regular rate and rhythm. No murmurs, gallops, or rubs. No lower extremity edema. No JVD. The patient has 2+ DP/PT pulses bilaterally. She has no calf tenderness to palpation. The right calf is slightly larger in circumference when compared to the right calf. Negative Hman's sign. Pulmonary: No respiratory distress. No accessory muscle usage. Clear to auscultation bilaterally without wheezing, crackles, or rhonchi. Gastrointestinal: Soft, nontender, and nondistended in all 4 quadrants. Normoactive bowel sounds in all 4 quadrants. Genitourinary: No CVA tenderness. Musculoskeletal: Normal range of motion in joints throughout the body. No deformity or other signs of injury. Neuro: Alert and oriented x4. Cranial nerves 2-12 grossly intact. No focal deficits appreciated. Psych: Normal mood and affect. Assessment & Plan Assessment & Plan (1) Pain of right lower extremity: Code(s): M79.604 - Pain in right leg (2) Swelling of right lower extremity: Code(s): M79.89 - Other specified soft tissue disorders Plan This is a 67-year-old female presenting to the office complaining of atraumatic right lower extremity pain x2 months. On physical examination, there is minimal swelling lower extremity without any focal/bony tenderness to palpation differential diagnoses includes sciatica versus peripheral vascular disease versus less likely deep vein thrombosis. The patient has 2+ DP/PT pulses so acute arterial embolism is unlikely. Check ultrasound venous duplex of the right lower extremity to rule out deep vein thrombosis. If negative, patient very likely has sciatica versus venous insufficiency and she will require follow-up with her primary care physician. She has an appointment scheduled with her primary care physician in June 2023. Recommended symptomatic management including activity modification, ice/heat to the low back/buttock, and acetaminophen as needed for pain. Also recommended elevation of her lower extremities as much as possible and avoidance of prolonged periods of standing. The patient was advised to follow-up here or proceed directly to the emergency room if she were to develop acute worsening of her pain or any color changes of her right lower extremity. The patient verbalized her understanding and she is in agreement with the plan. Orders: Orders US venous duplex LE RT Today M79.89 - Other specified soft tissue disorders Coding Level of Care Code Est Pt Level 3 (16344) Diagnoses Pain of right lower extremity M79.604 Swelling of right lower extremity M79.89
[2023-03-22 08:15] VITALS: BP 120/70; PULSE 89; TEMP 36.6; O2SAT 97; BMI 34.0
== END 2023-03-22 09:31 | disposition home or self-care (01) ==
PROVIDERS: PCP Internal Medicine; Visit Provider Physician Assistant Medical
DX: M79.604 Pain in right leg (principal); M79.89 Other specified soft tissue disorders
CPT/HCPCS: 99213

== ENCOUNTER 2023-03-22 08:57 | Outpatient (REF) | payer MEDICARE, SELFPAY ==
--- NOTE | ~2023-03-22 | US_ITS ---
EXAMINATION: US VENOUS ULTRASOUND WITH DOPPLER LOWER EXTREMITY, RIGHT CLINICAL INFORMATION: Soft tissue swelling/edema. COMPARISON: None available. TECHNIQUE: Ultrasound of the deep veins is performed from the hip to the calf with compression sonography and color and pulse Doppler assessment. Spectral analysis with color-flow imaging is performed. FINDINGS: The common femoral vein is compressible and exhibits a normal phasic waveform; this suggests that the iliac veins are widely patent above. Within the proximal thigh, the visualized profunda femoris vein is normal. The examined greater saphenous vein and saphenofemoral junction are normal. Superficial femoral vein is patent in the proximal, mid and distal thigh. Popliteal vein is normal to the level of the trifurcation. On compression mora scale and color Doppler images, the visualized posterior tibial and peroneal veins of the calf are patent. At the popliteal fossa there is a 2.9 x 1.2 x 2.1 cm Polanco's cyst. US/US venous duplex LE RT IMPRESSION: * No evidence of deep vein thrombosis in the right lower extremity. * At the popliteal fossa there is a 2.9 x 1.2 x 2.1 cm Polanco's cyst.
== END 2023-03-22 08:58 | disposition home or self-care (01) ==
LOC: HO.HMGCX 08:57
PROVIDERS: PCP Internal Medicine; Visit Provider Physician Assistant Medical
DX: M79.604 Pain in right leg (principal); M79.89 Other specified soft tissue disorders; R60.9 Edema, unspecified
CPT/HCPCS: 93971

== ENCOUNTER 2023-06-04 09:58 | Outpatient (AMB) | payer MEDICARE, SELFPAY ==
--- NOTE | 2023-06-04 09:59 | A.OFFVIS_ITS ---
Intake Vital Signs 3 06/04/23 10:06 Height 5 ft 1 in Weight 172 lb BMI 32.5 BP 124/57 L Blood Pressure Location Lt brachial Position Sitting Pulse 85 Intake Visit Reasons: Breast exam, 1 year follow up Intake Note: Patient is seen in office for yearly breast exam. Pt c/o: denies any concerns regarding the breast b/l mastectomy Oiler And Greaser Required: No Accompanied by: Self / Same As Patient Allergies Penicillins Allergy (Severe, Verified 06/04/23 10:04) ANAPHYLAXIS adhesive tape Allergy (Intermediate, Verified 06/04/23 10:04) BLISTERS hydrochlorothiazide Allergy (Mild, Verified 06/04/23 10:04) PALPITATION, PALPITATIONS, palpitations iopromide [From ULTRAVIST] Allergy (Mild, Verified 06/04/23 10:04) UTICARIA, HIVES latex [LATEX] Allergy (Unknown, Verified 06/04/23 10:04) RASH methotrexate [METHOTREXATE] Adverse Reaction (Severe, Verified 06/04/23 10:04) DIARRHEA-LARGER DOSE OF MED chlorthalidone [CHLORTHALIDONE] Adverse Reaction (Intermediate, Verified 06/04/23 10:04) SHAKY,ANXIETY sulfamethoxazole [SULFAMETHOXAZOLE] Adverse Reaction (Intermediate, Verified 06/04/23 10:04) STOMACH PAIN atorvastatin [From LIPITOR] Adverse Reaction (Mild, Verified 06/04/23 10:04) MYALGIA IVP dye Allergy (Unknown, Uncoded 06/04/23 10:04) redness and itching Medication List - Last Reconciled 06/04/23 by Aquiles Henderson MD aflibercept 2 mg intravitreal Q12W amlodipine 10 mg PO DAILY cetirizine 10 mg PO DAILY cholecalciferol (vitamin D3) 1,000 units PO DAILY doxazosin 2 mg PO BEDTIME olmesartan 20 mg PO QAM omeprazole 40 mg PO DAILY ProAir HFA 90 mcg/actuation (albuterol sulfate) 2 puffs inhalation Q6H PRN NS vitamin B complex 1 tab PO DAILY vitamins A,C,J-ptfo-vovwxu 4,296 mcg-226 mg-90 mg (PreserVision AREDS) 1 cap PO BID HPI HPI Comments 2 History of Present Illness0 Details 67-year-old female patient returning for follow-up breast examination after bilateral mastectomies. She is status post right breast lumpectomy and sentinel node biopsy for infiltrating ductal carcinoma, ER/AZ positive in 1997. She subsequently developed a left breast infiltrating ductal carcinoma, poorly differentiated, triple negative in 2017. At the patient's request she underwent a bilateral mastectomy with left axillary node dissection in March 2017. She required a revision of the mastectomy in June 2018 due to excessive skin. She underwent chemotherapy (Dr. Herrera, CM[facility] x6 months, DD AC x4 cycles followed by weekly Taxol). She reports macular degeneration in both eyes in will require another injection in the right eye. She also was diagnosed with a thyroid nodule. Genetic testing of 04/15/2017 was negative for clinically significant mutations and variance of unknown significance. She generally feels well and denies any new chest symptoms. [facility] Medical History Impaired fasting glucose Dyslipidemia Left groin pain Thyroid nodule Hyperparathyroidism Internal hemorrhoids Vitamin D deficiency Osteoporosis History of breast cancer Menopause, premature Osteopenia of left femoral neck Macular degeneration Irritable bowel syndrome with constipation and diarrhea Epigastric pain Essential hypertension Invasive ductal carcinoma of right breast Carpal tunnel syndrome Fatty liver IBS (irritable bowel syndrome) Lyme disease GERD (gastroesophageal reflux disease) Sarcoidosis Surgical History H/O colonoscopy History of left mastectomy (~06/09/18) History of removal of Port-a-Cath (~02/04/18) History of bilateral mastectomy (~04/02/17) History of left breast biopsy (~2017) History of cholecystectomy (~04/15/14) History of tubal ligation History of tonsillectomy History of lumpectomy of right breast (~1997) Family History Father History of heart disease History of cardiovascular disorder Mother History of diabetes mellitus History of hypertension History of myocardial infarction History of emphysema Sister History of rheumatoid arthritis Brother History of rheumatoid arthritis Father Substance use disorder Son Substance use disorder Social History Household Members: Children Housing: House Are you a primary resident care provider to a significant other at home: No Do you presently have visiting nurse or other home services: No Alcohol intake: never Patient Tobacco Use Status: Never used Tobacco e-Cigarette/Vaping Use: Never Used Advance Directives Date on File: 09/04/21 service: No Current occupational status: retired Cognitive needs: No Hearing needs: No Vision needs: No Review of Systems Const All systems reviewed & are unremarkable except as noted in HPI and below Denies chills, Denies fever(s) and Reports weight gain Card Denies chest pain, Denies rapid heart rate and Denies irregular heart rhythm Resp Denies chest congestion, Denies cough and Denies hemoptysis GI Denies abdominal pain, Denies bloating, Denies constipation and Denies diarrhea Skin/Breast Denies breast skin changes and Denies skin ulcer Ben/Lymph Denies lymphadenopathy Physical Exam Vital Signs: Last Vital Signs Pulse 85 06/04/23 10:06 BP 124/57 L 06/04/23 10:06 BMI result Body Mass Index 32.5 Const General: cooperative, healthy appearing, comfortable, no acute distress, well developed, alert and awake HEENT Head: Yes normocephalic and Yes atraumatic Neck Neck: Yes full ROM, Yes no lymphadenopathy and Yes trachea midline Chest Other: Bilateral mastectomy with well-healed incisions, no subcutaneous nodules, no skin changes, no enlarged lymph nodes in the axilla. No further suspicious changes are identified. Chest/axillae images: 2 1. 2. Resp Effort & Inspection: normal respiratory effort Skin General skin exam: no rashes or lesions noted Extrem General: Yes no clubbing, cyanosis or edema Assessment & Plan Assessment & Plan (1) Invasive ductal carcinoma of left breast: Code(s): C50.912 - Malignant neoplasm of unspecified site of left female breast (2) Invasive ductal carcinoma of right breast: Code(s): C50.911 - Malignant neoplasm of unspecified site of right female breast Plan Patient returns for bilateral breast cancer follow-up examination. She is status post bilateral mastectomies generally feels well. Examination today revealed well-healed bilateral mastectomies with no new suspicious findings on either side. Patient no longer requires mammograms. She should follow up 1 year, sooner p.r.n.. Coding Level of Care Code Est Pt Level 3 (77937) Diagnoses Invasive ductal carcinoma of left breast C50.912 Invasive ductal carcinoma of right breast C50.911
[2023-06-04 10:06] VITALS: BP 124/57; PULSE 85; BMI 32.5
== END 2023-06-04 10:18 | disposition home or self-care (01) ==
PROVIDERS: Visit Provider Surgery
DX: C50.912 Malignant neoplasm of unspecified site of left female breast (principal); C50.911 Malignant neoplasm of unspecified site of right female breast
CPT/HCPCS: 99213

== ENCOUNTER → 2023-06-04 09:58 | Outpatient (BNVA) | payer MEDICARE, SELFPAY | PROVIDERS: Visit Provider Surgery | DX: Z08 Encounter for follow-up examination after completed treatment for malignant neoplasm (principal); Z90.13 Acquired absence of bilateral breasts and nipples | CPT/HCPCS: 99212 ==

== ENCOUNTER 2023-06-07 11:26 | Outpatient (REF) | payer MEDICARE, SELFPAY ==
--- NOTE | ~2023-06-07 | US_ITS ---
EXAMINATION: US THYROID CLINICAL INFORMATION: Thyroid nodule COMPARISON: None available. TECHNIQUE: Linear transducer grayscale and color Doppler examination with attention to the region of the thyroid. FINDINGS: SIZE: Measurements of the thyroid lobes and nodules are given in sagittal, anteroposterior and transverse dimensions respectively. Right Thyroid Lobe: 3.9 x 2.2 x 2.2 cm, volume 9.9 mL. Parenchyma: The gland echotexture is homogeneous. Thyroid vascularity is normal. Left Thyroid Lobe: 3.9 x 1.9 x 1.4 cm, volume 5.4 mL. Parenchyma: The gland echotexture is homogeneous. Thyroid vascularity is normal. Isthmus: 0.7 cm in maximum AP dimension. Estimated total number of nodules greater than or equal to 1 cm: . 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 Location: Right lower lobe. Size: 0.5 x 0.6 x 0.7 cm, volume 0.13 mL. Nodule characteristics: Composition: Solid (2). Echogenicity: Hypoechoic (2). Shape: Not taller than wide (0). Margins: Smooth (0). Echogenic Foci: None (0). ACR TI-RADS total points: 4 ACR TI-RADS category: 4 NODES: No lymphadenopathy is seen in the tissue surrounding the thyroid gland. US/US thyroid IMPRESSION: Thyroid normal in size. Subcentimeter solid nodule right lobe., These small nodules commonly benign, does not meet the ACR TI-RADS criteria for biopsy or follow-up at this time. ACR TI-RADS RECOMMENDATION REFERENCE: Ultrasound-guided fine-needle aspiration, followup ultrasound, no further follow up. * TR1 (0 point) and TR2 (2 points): No FNA or follow up. * TR3 (3 points): FNA if more than or equal to 2.5 cm in maximum dimension, followup ultrasound in 1, 3 and 5 years if 1.5 to 2.4 cm in maximum dimension. * TR4 (4-6 points): FNA if more than or equal to 1.5 cm in maximum dimension, followup ultrasound in 1, 2, 3 and 5 years if 1 to 1.4 cm in maximum dimension. * TR5 (more than or equal to 7 points): FNA if more than or equal to 1 cm in maximum dimension, followup ultrasound every year for 5 years if 0.5 to 0.9 cm in maximum dimension. * TR3, TR4 or TR5 nodules that are below the size threshold for followup receive no follow up.
== END 2023-06-07 11:27 | disposition home or self-care (01) ==
LOC: HO.HMGCX 11:26
PROVIDERS: PCP Internal Medicine; Visit Provider Internal Medicine Medical Oncology
DX: E04.1 Nontoxic single thyroid nodule (principal)
CPT/HCPCS: 76536

== ENCOUNTER 2023-06-19 10:57 | Outpatient (AMB) | payer MEDICARE, SELFPAY ==
[2023-06-19 11:30] VITALS: BP 112/78; PULSE 81; O2SAT 96; BMI 32.5
--- NOTE | 2023-06-19 11:30 | A.OFFVIS_ITS ---
Intake Vital Signs 06/19/23 11:30 Height 5 ft 1 in Weight 172 lb BMI 32.5 BP 112/78 Blood Pressure Location Rt brachial Position Sitting Pulse 81 Pulse Source Pulse Oximeter Pulse Oximetry (%) 96 Oxygen Delivery Method Room Air Intake Visit Reasons: AWV G0438 Intake Note: Pt is here today for her AWV: Last bone density scan 07/23/22, colonoscopy 03/19/11 Allergies Penicillins Allergy (Severe, Verified 06/19/23 12:18) ANAPHYLAXIS adhesive tape Allergy (Intermediate, Verified 06/19/23 12:18) BLISTERS hydrochlorothiazide Allergy (Mild, Verified 06/19/23 12:18) PALPITATION, PALPITATIONS, palpitations iopromide [From ULTRAVIST] Allergy (Mild, Verified 06/19/23 12:18) UTICARIA, HIVES latex [LATEX] Allergy (Unknown, Verified 06/19/23 12:18) RASH methotrexate [METHOTREXATE] Adverse Reaction (Severe, Verified 06/19/23 12:18) DIARRHEA-LARGER DOSE OF MED chlorthalidone [CHLORTHALIDONE] Adverse Reaction (Intermediate, Verified 06/19/23 12:18) SHAKY,ANXIETY sulfamethoxazole [SULFAMETHOXAZOLE] Adverse Reaction (Intermediate, Verified 06/19/23 12:18) STOMACH PAIN atorvastatin [From LIPITOR] Adverse Reaction (Mild, Verified 06/19/23 12:18) MYALGIA IVP dye Allergy (Unknown, Uncoded 06/19/23 12:18) redness and itching Medication List - Last Reconciled 06/19/23 by Ingrid Vieyra MD aflibercept 2 mg intravitreal Q12W amlodipine 5 mg PO DAILY cetirizine 10 mg PO DAILY cholecalciferol (vitamin D3) 1,000 units PO DAILY doxazosin 2 mg PO BEDTIME olmesartan 20 mg PO QAM omeprazole 20 mg PO DAILY ProAir HFA 90 mcg/actuation (albuterol sulfate) 2 puffs inhalation Q6H PRN NS vitamin B complex 1 tab PO DAILY vitamins A,C,E-hobx-vfyjmz 4,296 mcg-226 mg-90 mg (PreserVision AREDS) 1 cap PO BID HPI AWV G0438 HPI Details AWV ? 67 year old with history of breast cancer, hypertension, dyslipidemia, impaired fasting glucose, chronic GERD, with history of osteoporosis in the past, now showing osteopenia on latest bone density scan done 07/23/2022, here today for her initial annual Wellness Visit . She had a negative Pap smear done 06/15/2020, does not get mammograms anymore had a double mastectomy, had a colonoscopy 09/04/2021 with removal of 2 tubular adenomas, repeat colonoscopy scheduled for [address] Smith. She had fasting lipid panel done 06/19/2022 and fasting blood sugar check 06/05/2023. She is up-to-date with her she flu shot, Shingrix vaccine pneumonia vaccination and Tdap. ? Medical / Social History Reviewed? Past Medical History ?Yes . ? [place] of Care / Care Team list updated ?Yes . ? Surgical/Hospitalization History ?Yes . ? Current Medications (including OTC and supplements) ?Yes . ? Family History ?Yes . ? Tobacco Control form ?Yes . ? AUDIT-C (Alcohol use) form ?Yes . ? Illicit drug use in Social History ?Yes . ? Current diagnosis of depression? ?No ? Appropriate PHQ2/PHQ9 completed ?Yes . ? Data entered by ?[employer] and reviewed by provider ? Fall Risk ? Fall History? Have you had any falls with injury in the past year? ?No . ? Have you had two or more falls in the past year? ?No . ? Fall Risk Assessment: ?No falls in the past year . ? HRA filled out by the patient, reviewed by Provider and scanned. ? IPPE/AWV ? Balance? Romberg ?Yes . ? Tandem walk ?Yes . ? Walk and Turn ?Yes . ? Rise from sit to stand ?Yes . ?Vision? Corrective lens ?Yes ? Vision screen ? Up-to-date, sees Dr. Villalta for her macular degeneration OU and sees Dr. Hernandez for her routine eye exam ?Hearing? Whisper test ?pass . ?Written Plan?Completed. See Patient Documents.? [facility] Medical History (Updated 06/21/23 @ 14:58 by Ingrid Vieyra MD) Macular degeneration, bilateral Impaired fasting glucose Dyslipidemia Left groin pain Thyroid nodule Hyperparathyroidism Internal hemorrhoids Vitamin D deficiency Osteoporosis History of breast cancer Menopause, premature Osteopenia of left femoral neck Irritable bowel syndrome with constipation and diarrhea Epigastric pain Essential hypertension Invasive ductal carcinoma of right breast Carpal tunnel syndrome Fatty liver IBS (irritable bowel syndrome) Lyme disease GERD (gastroesophageal reflux disease) Sarcoidosis Surgical History H/O colonoscopy History of left mastectomy (~06/09/18) History of removal of Port-a-Cath (~02/04/18) History of bilateral mastectomy (~04/02/17) History of left breast biopsy (~2017) History of cholecystectomy (~04/15/14) History of tubal ligation History of tonsillectomy History of lumpectomy of right breast (~1997) Family History Father History of heart disease History of cardiovascular disorder Mother History of diabetes mellitus History of hypertension History of myocardial infarction History of emphysema Sister History of rheumatoid arthritis Brother History of rheumatoid arthritis Father Substance use disorder Son Substance use disorder Social History Household Members: Children Housing: House Are you a primary primary care provider to a significant other at home: No Do you presently have visiting nurse or other home services: No Alcohol intake: never Patient Tobacco Use Status: Never used Tobacco e-Cigarette/Vaping Use: Never Used Advance Directives Date on File: 09/04/21 service: No Current occupational status: retired Cognitive needs: No Hearing needs: No Vision needs: No Female Reproductive History Menstrual Date of last pap smear: 06/15/20 Date of last Bone Density Screenin07/23/22 Questionnaire Medicare Wellness Checkup What [age] What gender do you identify with?: female During the past 4 weeks, how much have you been bothered by emotional problems such as feeling anxious, depressed, irritable, sad or downhearted, and blue?: not at all During the past 4 weeks, has your physical & emotional health limited your social activities with family, friends, neighbors, or groups?: not at all During the past 4 weeks, how much bodily pain have you generally had?: mild pain During the past 4 weeks, was someone available to help you if you needed & wanted help?: yes, as much as I wanted During the past 4 weeks, what was the hardest physical activity you could do for at least 2 minutes?: heavy Can you get to places out of walking distance without help? (For eg., can you travel alone on buses, taxis or drive your car?): Yes Can you go shopping for groceries or clothes without someone's help?: Yes Can you prepare your own meals?: Yes Can you do your housework without help?: Yes Because of any health problems, do you need the help of another person with your personal care needs such as eating, bathing, dressing or getting around the house?: No Can you handle your own money without help?: Yes During the past 4 weeks, how would you rate your health in general?: very good During the past 4 weeks how have things been going for you?: very well; could hardly better Are you having difficulties driving your car?: not applicable, I don't use a car Do you always fasten your seat belt when you are in a car?: yes, usually During past 4 weeks, have you been bothered by the following: never: Falling or dizzy when standing up, Sexual problems?, Trouble eating well?, Teeth or denture problems? and Problems using the telephone? and seldom: Tiredness or fatigue? Have you fallen 2 or more times in the past year?: No Are you afraid of falling?: No Are you a smoker?: no During the past 4 weeks, how many drinks of wine, beer, or other alcoholic beverages did you have?: no alcohol at all Do you exercise for about 20 minutes 3 or more times a week?: yes, most of the time Have you been given information to help with the following?: no: Hazards in your house that might hurt you? and no: Keeping track of your medications? How often do you have trouble taking medicines the way you have been told to take them?: I always take medicine as prescribed How confident are you that you can control & manage most of your health problems?: very confident ([facility]) What is your race?: White Mini Mental State Exam (MMSE) Orientation What is the (year) (season) (date) (day) (month)?: year (2023), season (spring), date (06/19/23), day (saturday) and month (june) Where are we (state) (county) (town or city) (hospital) (floor)?: state ([place]), [facility] ([place]), town or city ([place]) and hospital/clinic ([facility]) Score Score: 9 Activity of Daily Living Bathing - sponge bath, tub bath or shower: receives no assistance (gets in/out by self, if usual bathing means Dressing - getting clothes from closets & drawers, including inner/outer garments & fasteners.: gets clothes & gets completely dressed without help Toileting - going to the 'toilet room' for urine/bowel elimination & cleaning self/arranging clothes: goes to toilet room, cleans self, arranges clothes without help Transfer: moves in & out of bed and chair without help (may use support object) Continence: has occasional 'accidents' Feeding: feeds self without help Total Score: 0 Information obtained from: patient Using telephone: independent Traveling: needs assistance Shopping: needs assistance Preparing meals: independent Housework: independent Taking medicine: independent Managing money: independent PHQ-9 Over the last 2 weeks, how often have you been bothered by any of the following problems? 1. Little interest or pleasure in doing things: not at all 2. Feeling down, depressed, or hopeless: not at all 3. Trouble falling or staying asleep, or sleeping too much: not at all 4. Feeling tired or having little energy: not at all 5. Poor appetite or overeating: not at all 6. Feeling bad about yourself - or that you are a failure or have let yourself or your family down: not at all 7. Trouble concentrating on things, such as reading the newspaper or watching television: not at all 8. Moving or speaking so slowly that other people could have noticed. Or the opposite - being so fidgety or restless that you have been moving around a lot more than usual: not at all 9. Thoughts that you would be better off or of hurting yourself in some way: not at all Total score: 0 Depression Screening Interpretation: Negative Depression Screening Done: Yes 16741 - PHQ-9 Billing: Yes Source: Developed by Drs. Ismael Bazan, Josepihne Medellin, Chris Guerrero and colleagues, with an educational lea from [employer]. Physical Exam Vital Signs: Last Vital Signs Pulse 81 06/19/23 11:30 BP 112/78 06/19/23 11:30 Pulse Ox 96 06/19/23 11:30 Oxygen Delivery Method Room Air 06/19/23 11:30 BMI result Body Mass Index 32.5 Immunizations pneumoc 20-leif conj-dip cr(PF) 0.5 mL IM syringe Performing Provider: Ingrid Vieyra MD Performing Location: [facility] Administered by: Larisa Joya CMA on 06/19/23 12:31 Dose Route Admin Location Dispensed Lot Number Expiration Date [facility] Injection Molding Supervisor 0.5 mL IM Right Deltoid 0.5 mL [id number] 06/08/24 9155-0517-04 WYETH/PFIZER VIS Given Date VIS Provided VIS Publication Date 06/19/23 Single Vaccine 21 Eligibility Eligibility Date Funding Source Not VFC Eligible 06/19/23 Private Results Reviewed Results Reviewed: Name: Tiffany Perdue Age/Sex: 67/F : 1955 Unit#: [id number] Attend Dr: Corrie Herrera MD Re06/05/23 Status: REG RCR Location: .ONC Disch: SPEC : [id number] JT: 06/05/23 STATUS: COMP REQ : [id number] RECD: 06/05/[address]: Corrie Herrera MD COMP: 06/05/23 ENTERED: 06/05/[address]: Ingrid Vieyra MD ORDERED: CBC Auto Diff Test Result Flag Reference WBC 4.3 L 4.8-10.8 X10*3/uL RBC 4.16 L 4.20-5.50 X10*6/uL HGB 12.6 12.0-16.0 g/dl HCT 37.2 37.0-47.0 % MCV 89.4 80.0-98.0 fL MCH 30.3 27.0-33.0 pg MCHC 33.9 31.0-35.0 g/dl RDW 12.8 11.0-16.0 % PLT 135 L 160-400 X10*3/uL MPV 10.7 9.4-12.3 fL Neut Pct Auto 62.0 45-73 % ImGran Pct Auto 0.2 0.0-0.4 % Lymp Pct Auto 25.3 20-40 % [place] Pct Auto 8.4 2-11 % Eos Pct Auto 3.2 0-4 % Baso Pct Auto 0.9 0-2 % NRBC Pct Auto 0.0 0.0-0.2 /100WBC ANC Neut Abs # 2.7 2.0-8.3 x10*3/uL ImGran Abs Auto 0.01 0.00-0.03 X10*3/uL Lymph Abs Auto 1.1 L 1.2-4.9 X10*3/uL [place] Abs Auto 0.4 0.1-1.2 X10*3/uL Eos Abs Auto 0.1 0.0-0.4 X10*3/uL Baso Abs Auto 0.0 0.0-0.2 X10*3/uL NRBC Abs Auto 0.000 0.0-0.012 X10*3/uL RUN: 06/21/23 1456 PAGE 1 [facility] [address] [place] [id number] Marine Insulator: Kevon Ly M.D. Specimen Inquiry Name: Tiffany Perdue Age/Sex: 67/F : 1955 Unit#: [id number] Attend Dr: Corrie Herrera MD Re06/05/23 Status: REG [facility] Location: [facility] Disch: SPEC : [id number] JT: 06/05/23 STATUS: COMP REQ : [id number] RECD: 06/05/[address]: Corrie Herrera MD COMP: 06/05/23 ENTERED: 06/05/[address] [facility] [address]: Ingrid Vieyra MD ORDERED: CMP Test Result Flag Reference Sodium 142 135-145 mmol/L Potassium 4.0 3.3-5.1 mmol/L CL 106 96-108 mmol/L CO2 29 22-29 mmol/L Gap 11 L 12-20 BUN 19 H 9-16 mg/dL Creat 0.77 0.5-1.4 mg/dL Estimated CrCl 68.3 Provided height and weight: 154.94 cm, 78.8 kg. eGFR (calculated from the MDRD study equation) and eCrCl (calculated from the Cockcroft-Gault equation) are based on different parameters and may not yield comparable results. If eCrCl result is absurd, please check patient's height/weight. EGFR > 60 NOTE: For -[place] individuals, multiply the result by 1.210. Chronic Kidney Disease: Estimated GFR < 60 mL/min/1.73m2 Severe Kidney Disease: Estimated GFR < 15 mL/min/1.73m2 Glucose, Random 119 H 60-115 mg/dL CA 9.6 8.4-10.2 mg/dL Total Bili 0.3 0.0-1.0 mg/dL AST (GOT) 16 5-31 U/L ALT (GPT) 13 0-31 U/L Protein, Total 7.0 6.5-8.0 g/dL Alb 4.2 3.5-5.0 g/dL Alk Phos 83 39-117 U/L Assessment & Plan Assessment & Plan (1) Advanced directives, counseling/discussion: Code(s): Z71.89 - Other specified counseling Plan: Medical wellness checklist reviewed, discussed with patient and updated. Copy given (2) Dyslipidemia: Code(s): E78.5 - Hyperlipidemia, unspecified Plan: Reinforced importance of following low-cholesterol diet and getting regular exercise (3) Impaired fasting glucose: Code(s): R73.01 - Impaired fasting glucose Plan: Your fasting blood sugars elevated above 100 mg/dL. Impaired glucose metabolism increases your risk for developing diabetes mellitus type 2, as well as heart attack and stroke later on. Lifestyle changes at just weight loss, healthy eating habits, and regular exercise are important, and can prevent the progression to diabetes (4) Macular degeneration, bilateral: Comment: Sees Dr. Villalta Code(s): H35.30 - Unspecified macular degeneration Qualifiers: Macular degeneration type: unspecified type Qualified Code(s): H35.30 - Unspecified macular degeneration Plan: Currently followed by Dr. Villalta and Dr. Hernandez. Currently taking PreserVision AREDS (5) GERD (gastroesophageal reflux disease): Code(s): K21.9 - Gastro-esophageal reflux disease without esophagitis Qualifiers: Esophagitis presence: without esophagitis Qualified Code(s): K21.9 - Gastro-esophageal reflux disease without esophagitis Plan: CONTINUE OMEPRAZOLE (6) Essential hypertension: Code(s): I10 - Essential (primary) hypertension Plan: CONTINUE DOXAZOSIN AND AMLODIPINE (7) Osteopenia of left femoral neck: Code(s): M85.852 - Other specified disorders of bone density and structure, left thigh Plan: Continue vitamin-D3, reinforced importance of getting regular weight-bearing exercise, take adequate calcium from dietary sources (8) History of breast cancer: Code(s): Z85.3 - Personal history of malignant neoplasm of breast Plan: Currently followed by Oncology (9) Encounter for subsequent annual wellness visit (AWV) in Medicare patient: Code(s): Z00.00 - Encounter for general adult medical examination without abnormal findings Plan: Initiated the conversation about Advanced Directives. Advanced Directives help patients prepare for current and future decisions about their medical treatment and place of care. Discussed with patient that it is a process where a patients current condition and prognosis are reviewed, their wishes for information regarding their illness are elicited, and likely medical dilemmas are presented and options discussed. Healthcare proxy already done, MOLST form completed today. These forms can be amended as needed, reviewed yearly and make changes as needed Orders: Orders Hemoglobin A1c 06/19/23 E78.5 - Hyperlipidemia, unspecified, R73.01 - Impaired fasting glucose Glucose Fasting 06/19/23 E78.5 - Hyperlipidemia, unspecified, R73.01 - Impaired fasting glucose Lipid Panel 06/19/23 E78.5 - Hyperlipidemia, unspecified, R73.01 - Impaired fasting glucose Pneumococcal 20 Immunization 06/19/23 Z23 - Encounter for immunization Medications: New omeprazole 20 mg PO DAILY 90 caps 3RF amlodipine 5 mg PO DAILY 90 tabs 3RF Refilled olmesartan 20 mg PO QAM 90 tabs 3RF doxazosin 2 mg PO BEDTIME 90 tabs 3RF Quality Reporting (2019) Depression/Bipolar (159/160/161/177) PHQ-9: Total score: 0 Coding Level of Care Code Medicare First (G0438) Diagnoses Advanced directives, counseling/discussion Z71.89 Dyslipidemia E78.5 Impaired fasting glucose R73.01 Macular degeneration of both eyes, unspecified type H35.30 Macular degeneration type: unspecified type Gastroesophageal reflux disease without esophagitis K21.9 Esophagitis presence: without esophagitis Essential hypertension I10 Osteopenia of left femoral neck M85.852 History of breast cancer Z85.3 Encounter for subsequent annual wellness visit (AWV) in Medicare patient Z00.00 CPT Codes Advance Care Planning - Time spent: 16-45 minutes ([id number]) Advance Care Planning Date of discussion: 06/19/23 Who was present: Patient Forms completed: Health Care Proxy and MOLST Time spent: 16-45 minutes Actual minutes spent: 16
== END 2023-06-19 12:36 | disposition home or self-care (01) ==
PROVIDERS: PCP Internal Medicine; Visit Provider Internal Medicine
DX: Z23 Encounter for immunization (principal)
CPT/HCPCS: 90471; 90677; 99497; G0438

== ENCOUNTER 2023-06-26 09:53 | Outpatient (REF) | payer MEDICARE, SELFPAY ==
[2023-06-26 13:44] LABS: Estimated Average Glucose 120 mg/dL; Hemoglobin A1c % 5.8 % (<6.0)
[2023-06-26 14:06] LABS: Cholesterol 201 mg/dL (<200); Glucose Fasting 99 mg/dL (60-99); HDL Cholesterol 65 mg/dL (>40); LDL Cholesterol Calculated 117 mg/dL (<100); Triglycerides 97 mg/dL (<150)
== END 2023-06-26 09:54 | disposition home or self-care (01) ==
LOC: HO.HMGCLDS 09:53
PROVIDERS: PCP Internal Medicine; Visit Provider Internal Medicine
DX: E03.9 Hypothyroidism, unspecified (principal); E21.3 Hyperparathyroidism, unspecified; E04.1 Nontoxic single thyroid nodule; E87.5 Hyperkalemia; R73.01 Impaired fasting glucose
CPT/HCPCS: 36415; 80061; 82947; 83036; 84439

== ENCOUNTER 2023-07-11 15:56 | Outpatient (AMB) | payer MEDICARE, SELFPAY ==
[2023-07-11 15:59] VITALS: BP 136/86; PULSE 77; BMI 32.3
--- NOTE | 2023-07-11 15:59 | A.OFFVIS_ITS ---
Vital Signs 07/11/23 15:59 Height 5 ft 1 in Weight 171 lb 1.259 oz BMI 32.3 BP 136/86 Blood Pressure Location Rt brachial Position Sitting Pulse 77 Pulse Source Pulse Oximeter Intake Visit Reasons: Osteoporosis-confirmed Intake Note: Patient present today for Osteoporosis follow up visit. 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 Accompanied by: Self / Same As Patient Allergies Penicillins Allergy (Severe, Verified 07/11/23 16:02) ANAPHYLAXIS adhesive tape Allergy (Intermediate, Verified 07/11/23 16:02) BLISTERS hydrochlorothiazide Allergy (Mild, Verified 07/11/23 16:02) PALPITATION, PALPITATIONS, palpitations iopromide [From ULTRAVIST] Allergy (Mild, Verified 07/11/23 16:02) UTICARIA, HIVES latex [LATEX] Allergy (Unknown, Verified 07/11/23 16:02) RASH methotrexate [METHOTREXATE] Adverse Reaction (Severe, Verified 07/11/23 16:02) DIARRHEA-LARGER DOSE OF MED chlorthalidone [CHLORTHALIDONE] Adverse Reaction (Intermediate, Verified 07/11/23 16:02) SHAKY,ANXIETY sulfamethoxazole [SULFAMETHOXAZOLE] Adverse Reaction (Intermediate, Verified 07/11/23 16:02) STOMACH PAIN atorvastatin [From LIPITOR] Adverse Reaction (Mild, Verified 07/11/23 16:02) MYALGIA IVP dye Allergy (Unknown, Uncoded 07/11/23 16:02) redness and itching Medication List - Last Reconciled 07/11/23 by Ismael Maguire MD aflibercept 2 mg intravitreal Q12W amlodipine 5 mg PO DAILY cetirizine 10 mg PO DAILY cholecalciferol (vitamin D3) 1,000 units PO DAILY doxazosin 2 mg PO BEDTIME olmesartan 20 mg PO QAM omeprazole 20 mg PO DAILY ProAir HFA 90 mcg/actuation (albuterol sulfate) 2 puffs inhalation Q6H PRN NS vitamin B complex 1 tab PO DAILY vitamins A,C,A-teht-uujgje 4,296 mcg-226 mg-90 mg (PreserVision AREDS) 1 cap PO BID HPI Comments Details: 67 YO Female with PMHx Breast cancer and Sarcoidosis is seen in F/U for Osteoporosis.. The patient last saw Dr. Martinez on 10/29/2022 She has a history of breast cancer x 2. In the 1990's she was diagnosed on the R side and underwent Chemo-radiation. She then developed it on the L side and underwent a bilateral mastectomy and a second round of chemotherapy. She received Tamoxifen for 5 years beginning in 1997. She was never treated with an aromatase inhibitor as her tumor is triple negative. She has been following with Dr. Herrera. First diagnosed with Osteopenia, but her most recent BMD in 2020 revealed Osteoporosis of the hip. She has never been treated for this. After her initial visit we completed a full biochemical evaluation which revealed concern for hyperparathyroidism with PTH 99, Albumin 4.4, Calcium 9.9 and Vitamin D 27. 24 hour urinary calcium was WNL. Labs repeated 11/24/2020 with Albumin Calcium 9.5, Albumin 4.5, PTH 93 and Vitamin D 27.1. Labs repeated again 06/02/2021 with Calcium 9.7, Albumin 4.2, PTH 96 and Vitamin D 26.8. Her most recent labs reveal her 24 hour urinary calcium to be low. He had an US of the neck which revealed no obvious parathyroid adenoma, but did reveal a solitary thyroid nodule. She underwent FNA biopsy of this 1.0 cm RMP thyroid nodule 03/30/2021, with benign (bethesda category II) cytology. No history of pathologic fracture or ONJ. Has 2-3 servings of dietary calcium per day in the form of almond milk or yogurt. Does not take a Calcium supplement. Takes 1000 IU of Vitamin D daily. She was taking Calcium citrate 600 mg PO BID but was unable to tolerate this due to GI distress. Does use omeprazole daily. Was treated with a full year course of Prednisone for her sarcoidosis, but has been off of this for a few years now. Denies ever using an anticoagulant or antiepileptic medication. Does no formal scheduled weight bearing exercise. 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 Menses were regular. She is . She did not breastfeed. Menopause was age 41. She did not use HRT. Denies history of Kidney stones: Denies family history of Osteoporosis or hip fracture. UTD on dental cleanings and sees dentist every 6 months. No planned upcoming dental work or extractions. DXA: 07/23/2022 FINDINGS: AP SPINE L1-L4: Current: BMD 1.043 g/cm2, Z-score -0.1, T-score -1.1, osteopenia, 0.1% decrease from previous, 2.0% decrease from baseline (<5% change is not significant). Prior: BMD 1.044 g/cm2. Baseline: BMD 1.064 g/cm2. LEFT FEMUR, NECK: Current: BMD 0.758 g/cm2, Z-score -0.9, T-score -2.0, osteopenia. Prior: BMD 0.683 g/cm2. Baseline: BMD 0.825 g/cm2. LEFT FEMUR, TOTAL: Current: BMD 0.847 g/cm2, Z-score -0.5, T-score -1.3, osteopenia, 9.6% increase from previous, 5.5% decrease from baseline (<5% change is not significant). Prior: BMD 0.773 g/cm2. Baseline: BMD 0.896 g/cm2. Thyroid US: 05/02/2022 Right Thyroid Lobe: 3.6 x 2.0 x 1.7 cm, volume 6.5 mL. Previously 3.5 x 2.1 x 1.5 cm, volume 5.7 mL. Parenchyma: The gland echotexture is homogeneous. Thyroid vascularity is normal. Left Thyroid Lobe: 4.5 x 2.2 x 1.2 cm, volume 6.4 mL. Previously 3.9 x 2.4 x 1.3 cm, volume 6.2 mL. Parenchyma: The gland echotexture is homogeneous. Thyroid vascularity is normal. Isthmus: 0.5 cm in maximum AP dimension. Previously 0.5 cm. Estimated total number of nodules greater than or equal to 1 cm: 0. Microbiology Lab Technician nodules are described as follows: 1.? Location: Right inferior. ?? ? Size: 0.6 x 0.6 x 0.7 cm, volume 0.15 mL. ?? ? Previously: 0.9 x 0.6 x 1.0 cm, volume 0.26 mL. ?? ? Nodule characteristics: ?? ? Composition: Mixed cystic and solid (1). ?? ? Echogenicity: Very hypoechoic (3). ?? ? Shape: Not taller than wide (0). ?? ? Margins: Smooth (0). ?? ? Echogenic Foci: Peripheral calcifications (2). ? ACR TI-RADS total points: 6 Previous: 5 ?? ? ACR TI-RADS category: 4 Previous: 4 ? Significant change in size (>/= 20% in 2 dimensions and minimal increase of 2 mm or 50% or greater increase in volume): No ?? ? Change in features: Yes ?? ? Change in ACR TI-RADS risk category: No NODES: No lymphadenopathy is seen in the tissue surrounding the thyroid gland. Labs: Laboratory Tests 10/17/22 10/17/22 10/19/22 10:07 10:07 08:00 Albumin 4.4 25-OH Vitamin D Total 43.3 TSH 1.47 Free T4 1.02 PTH Intact 96 H Calcium (PTH Intact) 9.6 Ur 24 Hour Volume Ur Creatinine 24 Hour Ur Calcium 24 Hr 104 10/19/22 08:00 Albumin 25-OH Vitamin D Total TSH Free T4 PTH Intact Calcium (PTH Intact) Ur 24 Hour Volume 2175 Ur Creatinine 24 Hour 1.1 Ur Calcium 24 Hr [facility] Medical History (Updated 06/21/23 @ 14:58 by Ingrid Vieyra MD) Macular degeneration, bilateral Impaired fasting glucose Dyslipidemia Left groin pain Thyroid nodule Hyperparathyroidism Internal hemorrhoids Vitamin D deficiency Osteoporosis History of breast cancer Menopause, premature Osteopenia of left femoral neck Irritable bowel syndrome with constipation and diarrhea Epigastric pain Essential hypertension Invasive ductal carcinoma of right breast Carpal tunnel syndrome Fatty liver IBS (irritable bowel syndrome) Lyme disease GERD (gastroesophageal reflux disease) Sarcoidosis Surgical History H/O colonoscopy History of left mastectomy (~06/09/18) History of removal of Port-a-Cath (~02/04/18) History of bilateral mastectomy (~04/02/17) History of left breast biopsy (~2017) History of cholecystectomy (~04/15/14) History of tubal ligation History of tonsillectomy History of lumpectomy of right breast (~1997) Family History Father History of heart disease History of cardiovascular disorder Mother History of diabetes mellitus History of hypertension History of myocardial infarction History of emphysema Sister History of rheumatoid arthritis Brother History of rheumatoid arthritis Father Substance use disorder Son Substance use disorder Social History Household Members: Children Housing: House Are you a primary md do resident urgent care to a significant other at home: No Do you presently have visiting nurse or other home services: No Alcohol intake: never Patient Tobacco Use Status: Never used Tobacco e-Cigarette/Vaping Use: Never Used Advance Directives Date on File: 09/04/21 service: No Current occupational status: retired Cognitive needs: No Hearing needs: No Vision needs: No Physical Exam Vital Signs: Last Vital Signs Pulse 77 07/11/23 15:59 BP 136/86 07/11/23 15:59 BMI result Body Mass Index 32.3 Assessment & Plan Assessment & Plan (1) Hyperparathyroidism: Code(s): E21.3 - Hyperparathyroidism, unspecified Category: Medical Plan: This is a 67-year-old white female with a history of secondary hyperparathyroidism possibly due to low calcium intake. She has low bone mass. Plan is to start Viactiv 600 mg BID recheck calcium, albumin, PTH, 25 hydroxy vitamin-D as well as 24 hour urine for calcium and creatinine in 8 wks Further adjustment and calcium or vitamin-D will take place after the above Orders: Orders Calcium 8 Weeks E21.3 - Hyperparathyroidism, unspecified Creatinine, 24 Hr Group 8 Weeks E21.3 - Hyperparathyroidism, unspecified Calcium, 24 Hr Ur 8 Weeks E21.3 - Hyperparathyroidism, unspecified Parathyroid Hormone Intact 8 Weeks E21.3 - Hyperparathyroidism, unspecified Albumin Level Today E21.3 - Hyperparathyroidism, unspecified Vitamin D 25-OH Total 8 Weeks E21.3 - Hyperparathyroidism, unspecified Coding Level of Care Code Est Pt Level 3 (45791) Diagnoses Hyperparathyroidism E21.3
== END 2023-07-11 16:26 | disposition home or self-care (01) ==
PROVIDERS: PCP Internal Medicine; Visit Provider Internal Medicine Endocrinology, Diabetes & Metabolism
DX: E21.3 Hyperparathyroidism, unspecified (principal)
CPT/HCPCS: 99213

== ENCOUNTER → 2023-07-11 15:56 | Outpatient (BNVA) | payer MEDICARE, SELFPAY | PROVIDERS: PCP Internal Medicine; Visit Provider Internal Medicine Endocrinology, Diabetes & Metabolism | DX: E21.3 Hyperparathyroidism, unspecified (principal) | CPT/HCPCS: 99212 ==

== ENCOUNTER 2023-09-17 09:33 | Outpatient (REF) | payer MEDICARE, SELFPAY ==
[2023-09-17 13:18] LABS: Albumin Level 4.4 g/dL (3.5-5.0)
[2023-09-17 13:43] LABS: Vitamin D 25-OH Total 45.7 ng/mL (>30)
[2023-09-17 13:44] LABS: Parathyroid Hormone Intact 85.9 pg/mL (8.7-77.1)
== END 2023-09-17 09:34 | disposition home or self-care (01) ==
LOC: HO.HMGCLDS 09:33
PROVIDERS: PCP Internal Medicine; Visit Provider Internal Medicine Endocrinology, Diabetes & Metabolism
DX: E21.3 Hyperparathyroidism, unspecified (principal)
CPT/HCPCS: 36415; 82040; 82306; 82310; 83970

== ENCOUNTER 2023-09-19 08:00 | Outpatient (REF) | payer MEDICARE, SELFPAY ==
[2023-09-21 16:38] LABS: Calcium, 24 Hr Urine 50 mg/24 h; Calcium/Creatinine Ratio 117 mg/g creat (30-275); Creatinine 24Hr Urine 0.42 g/24 h (0.50-2.15)
== END 2023-09-19 08:01 | disposition home or self-care (01) ==
LOC: HO.HMGCLNP 08:00
PROVIDERS: Visit Provider Internal Medicine Endocrinology, Diabetes & Metabolism
DX: E21.3 Hyperparathyroidism, unspecified (principal)
CPT/HCPCS: 82340

== ENCOUNTER 2023-11-12 15:49 | Outpatient (AMB) | payer MEDICARE, SELFPAY ==
--- NOTE | 2023-11-12 15:50 | MHC.OFFVIS ---
Vital Signs 11/12/23 15:51 Height 5 ft 1.8 in Weight 177 lb 4.026 oz BMI 32.6 BP 136/84 Blood Pressure Location Rt brachial Position Sitting Pulse 79 Pulse Source Pulse Oximeter Intake Visit Reasons: Osteoporosis Intake Note: Patient present today for Osteoporosis follow up. 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: No Accompanied by: Self / Same As Patient Allergies Penicillins Allergy (Severe, Verified 11/12/23 15:53) ANAPHYLAXIS adhesive tape Allergy (Intermediate, Verified 11/12/23 15:53) BLISTERS hydrochlorothiazide Allergy (Mild, Verified 11/12/23 15:53) PALPITATION, PALPITATIONS, palpitations iopromide [From ULTRAVIST] Allergy (Mild, Verified 11/12/23 15:53) UTICARIA, HIVES latex [LATEX] Allergy (Unknown, Verified 11/12/23 15:53) RASH methotrexate [METHOTREXATE] Adverse Reaction (Severe, Verified 11/12/23 15:53) DIARRHEA-LARGER DOSE OF MED chlorthalidone [CHLORTHALIDONE] Adverse Reaction (Intermediate, Verified 11/12/23 15:53) SHAKY,ANXIETY sulfamethoxazole [SULFAMETHOXAZOLE] Adverse Reaction (Intermediate, Verified 11/12/23 15:53) STOMACH PAIN atorvastatin [From LIPITOR] Adverse Reaction (Mild, Verified 11/12/23 15:53) MYALGIA IVP dye Allergy (Unknown, Uncoded 11/12/23 15:53) redness and itching HPI Comments Details: 67 YO Female with PMHx Breast cancer and Sarcoidosis is seen in F/U for Osteoporosis.. She has a history of breast cancer x 2. In the she was diagnosed on the R side and underwent Chemo-radiation. She then developed it on the L side and underwent a bilateral mastectomy and a second round of chemotherapy. She received Tamoxifen for 5 years beginning in 1997. She was never treated with an aromatase inhibitor as her tumor is triple negative. She has been following with Dr. Herrera. First diagnosed with Osteopenia, but her most recent BMD in 2020 revealed Osteoporosis of the hip. She has never been treated for this. After her initial visit we completed a full biochemical evaluation which revealed concern for hyperparathyroidism with PTH 99, Albumin 4.4, Calcium 9.9 and Vitamin D 27. 24 hour urinary calcium was WNL. Labs repeated 11/24/2020 with Albumin Calcium 9.5, Albumin 4.5, PTH 93 and Vitamin D 27.1. Labs repeated again 06/02/2021 with Calcium 9.7, Albumin 4.2, PTH 96 and Vitamin D 26.8. Her most recent labs reveal her 24 hour urinary calcium to be low. He had an US of the neck which revealed no obvious parathyroid adenoma, but did reveal a solitary thyroid nodule. She underwent FNA biopsy of this 1.0 cm RMP thyroid nodule 03/30/2021, with benign (bethesda category II) cytology. No history of pathologic fracture or ONJ. Has 2-3 servings of dietary calcium per day in the form of almond milk or yogurt. Does not take a Calcium supplement. Takes 1000 IU of Vitamin D daily. She was taking Calcium citrate 600 mg PO BID but was unable to tolerate this due to GI distress. Does use omeprazole daily. Was treated with a full year course of Prednisone for her sarcoidosis, but has been off of this for a few years now. Denies ever using an anticoagulant or antiepileptic medication. Does no formal scheduled weight bearing exercise. 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 Menses were regular. She is . She did not breastfeed. Menopause was age 41. She did not use HRT. Denies history of Kidney stones: Denies family history of Osteoporosis or hip fracture. UTD on dental cleanings and sees dentist every 6 months. No planned upcoming dental work or extractions. DXA: 07/23/2022 FINDINGS: AP SPINE L1-L4: Current: BMD 1.043 g/cm2, Z-score -0.1, T-score -1.1, osteopenia, 0.1% decrease from previous, 2.0% decrease from baseline (<5% change is not significant). Prior: BMD 1.044 g/cm2. Baseline: BMD 1.064 g/cm2. LEFT FEMUR, NECK: Current: BMD 0.758 g/cm2, Z-score -0.9, T-score -2.0, osteopenia. Prior: BMD 0.683 g/cm2. Baseline: BMD 0.825 g/cm2. LEFT FEMUR, TOTAL: Current: BMD 0.847 g/cm2, Z-score -0.5, T-score -1.3, osteopenia, 9.6% increase from previous, 5.5% decrease from baseline (<5% change is not significant). Prior: BMD 0.773 g/cm2. Baseline: BMD 0.896 g/cm2. Thyroid US: 05/02/2022 Right Thyroid Lobe: 3.6 x 2.0 x 1.7 cm, volume 6.5 mL. Previously 3.5 x 2.1 x 1.5 cm, volume 5.7 mL. Parenchyma: The gland echotexture is homogeneous. Thyroid vascularity is normal. Left Thyroid Lobe: 4.5 x 2.2 x 1.2 cm, volume 6.4 mL. Previously 3.9 x 2.4 x 1.3 cm, volume 6.2 mL. Parenchyma: The gland echotexture is homogeneous. Thyroid vascularity is normal. Isthmus: 0.5 cm in maximum AP dimension. Previously 0.5 cm. Estimated total number of nodules greater than or equal to 1 cm: 0. Commercial Electrician nodules are described as follows: 1.? Location: Right inferior. ?? ? Size: 0.6 x 0.6 x 0.7 cm, volume 0.15 mL. ?? ? Previously: 0.9 x 0.6 x 1.0 cm, volume 0.26 mL. ?? ? Nodule characteristics: ?? ? Composition: Mixed cystic and solid (1). ?? ? Echogenicity: Very hypoechoic (3). ?? ? Shape: Not taller than wide (0). ?? ? Margins: Smooth (0). ?? ? Echogenic Foci: Peripheral calcifications (2). ? ACR TI-RADS total points: 6 Previous: 5 ?? ? ACR TI-RADS category: 4 Previous: 4 ? Significant change in size (>/= 20% in 2 dimensions and minimal increase of 2 mm or 50% or greater increase in volume): No ?? ? Change in features: Yes ?? ? Change in ACR TI-RADS risk category: No NODES: No lymphadenopathy is seen in the tissue surrounding the thyroid gland. Labs: Laboratory Tests 10/17/22 10/17/22 10/19/22 10:07 10:07 08:00 Albumin 4.4 25-OH Vitamin D Total 43.3 TSH 1.47 Free T4 1.02 PTH Intact 96 H Calcium (PTH Intact) 9.6 Ur 24 Hour Volume Ur Creatinine 24 Hour Ur Calcium 24 Hr 104 08/11/23 08:00 Albumin 25-OH Vitamin D Total TSH Free T4 PTH Intact Calcium (PTH Intact) Ur 24 Hour Volume 2175 Ur Creatinine 24 Hour 1.1 Ur Calcium 24 Hr Off Viactiv because GI Sx and constipation . Takes almond milk 3 cups (?400 mg) and vitamin D3 1000 IU/day. PTH remains slightly elevated with normal 25 hydroxy vitamin-D and low 24 hour urine for calcium [facility] Medical History (Updated 06/21/23 @ 14:58 by Ingrid Vieyra MD) Macular degeneration, bilateral Impaired fasting glucose Dyslipidemia Left groin pain Thyroid nodule Hyperparathyroidism Internal hemorrhoids Vitamin D deficiency Osteoporosis History of breast cancer Menopause, premature Osteopenia of left femoral neck Irritable bowel syndrome with constipation and diarrhea Epigastric pain Essential hypertension Invasive ductal carcinoma of right breast Carpal tunnel syndrome Fatty liver IBS (irritable bowel syndrome) Lyme disease GERD (gastroesophageal reflux disease) Sarcoidosis Surgical History H/O colonoscopy History of left mastectomy (~06/09/18) History of removal of Port-a-Cath (~02/04/18) History of bilateral mastectomy (~04/02/17) History of left breast biopsy (~2017) History of cholecystectomy (~04/15/14) History of tubal ligation History of tonsillectomy History of lumpectomy of right breast (~1997) Family History Father History of heart disease History of cardiovascular disorder Mother History of diabetes mellitus History of hypertension History of myocardial infarction History of emphysema Sister History of rheumatoid arthritis Brother History of rheumatoid arthritis Father Substance use disorder Son Substance use disorder Social History Household Members: Children Housing: House Are you a primary senior care assistant to a significant other at home: No Do you presently have visiting nurse or other home services: No Alcohol intake: never Patient Tobacco Use Status: Never used Tobacco e-Cigarette/Vaping Use: Never Used Advance Directives Date on File: 09/04/21 service: No Current occupational status: retired Cognitive needs: No Hearing needs: No Vision needs: No Physical Exam Vital Signs: BMI result Body Mass Index 32.6 Assessment & Plan Assessment & Plan (1) Hyperparathyroidism: Code(s): E21.3 - Hyperparathyroidism, unspecified Category: Medical Plan: This is a 67-year-old white female with a history of secondary hyperparathyroidism possibly due to low calcium intake. She has low bone mass. The other possibility is lab error due to spurious measurement of PTH Plan is to recheck calcium, albumin, PTH, 25 hydroxy vitamin-D at [facility]). If PTH is elevated at [facility], will have patient increase calcium or switch to Tums and reassess labs in 3 months Orders: Orders Albumin Level Today E21.3 - Hyperparathyroidism, unspecified Parathyroid Hormone Intact Today E21.3 - Hyperparathyroidism, unspecified Vitamin D 25-OH Total Today E21.3 - Hyperparathyroidism, unspecified Calcium, 24 Hr Ur 3 Months E21.3 - Hyperparathyroidism, unspecified Calcium Today E21.3 - Hyperparathyroidism, unspecified Coding Level of Care Code Est Pt Level 3 (44502) Diagnoses Hyperparathyroidism E21.3
[2023-11-12 15:51] VITALS: BP 136/84; PULSE 79; BMI 32.6
== END 2023-11-12 16:16 | disposition home or self-care (01) ==
PROVIDERS: PCP Internal Medicine; Visit Provider Internal Medicine Endocrinology, Diabetes & Metabolism
DX: E21.3 Hyperparathyroidism, unspecified (principal)
CPT/HCPCS: 99213

== ENCOUNTER → 2023-11-12 15:49 | Outpatient (BNVA) | payer MEDICARE, SELFPAY | PROVIDERS: PCP Internal Medicine; Visit Provider Internal Medicine Endocrinology, Diabetes & Metabolism | DX: E21.3 Hyperparathyroidism, unspecified (principal) | CPT/HCPCS: 99212 ==

== ENCOUNTER 2023-12-27 09:36 | Outpatient (AMB) | payer MEDICARE, SELFPAY ==
--- NOTE | 2023-12-27 09:34 | A.OFFPC_ITS ---
Intake Visit Reasons: [phone] f/u labs Andriod Allergies Penicillins Allergy (Severe, Verified 12/28/23 05:19) ANAPHYLAXIS adhesive tape Allergy (Intermediate, Verified 12/28/23 05:19) BLISTERS hydrochlorothiazide Allergy (Mild, Verified 12/28/23 05:19) PALPITATION, PALPITATIONS, palpitations iopromide [From ULTRAVIST] Allergy (Mild, Verified 12/28/23 05:19) UTICARIA, HIVES latex [LATEX] Allergy (Unknown, Verified 12/28/23 05:19) RASH methotrexate [METHOTREXATE] Adverse Reaction (Severe, Verified 12/28/23 05:19) DIARRHEA-LARGER DOSE OF MED chlorthalidone [CHLORTHALIDONE] Adverse Reaction (Intermediate, Verified 12/28/23 05:19) SHAKY,ANXIETY sulfamethoxazole [SULFAMETHOXAZOLE] Adverse Reaction (Intermediate, Verified 12/28/23 05:19) STOMACH PAIN atorvastatin [From LIPITOR] Adverse Reaction (Mild, Verified 12/28/23 05:19) MYALGIA IVP dye Allergy (Unknown, Uncoded 12/28/23 05:19) redness and itching Medication List - Last Reconciled 12/27/23 by Ingrid Vieyra MD aflibercept 2 mg intravitreal Q12W albuterol sulfate 90 mcg/actuation 2 puffs inhalation Q6H PRN NS amlodipine 5 mg PO DAILY cetirizine 10 mg PO DAILY cholecalciferol (vitamin D3) 1,000 units PO DAILY doxazosin 2 mg PO BEDTIME olmesartan 20 mg PO QAM omeprazole 20 mg PO DAILY vitamin B complex 1 tab PO DAILY vitamins A,C,K-cnve-hzhnge 4,296 mcg-226 mg-90 mg (PreserVision AREDS) 1 cap PO BID Tobacco use date assessed: 12/27/23 Fall risk assessment: No Falls in past year Last assessed Fall Risk: 12/27/23 Dental Screening Dental Screen Date: 12/27/23 Did you have a dental visit in the last 12 months?: Yes Did you have a dental problem in the last 6 months where you did not have access to dental care?: No Was dental information given to patient?: Patient has dentist HPI [phone] f/u labs Andriod HPI Details 68 year old lady with history of breast cancer, hypertension, dyslipidemia, impaired fasting glucose, chronic GERD, with history of osteoporosis in the past, now showing osteopenia on latest bone density scan done 07/23/2022, here for a follow up visit. She has been feeling well, had recent fasting labs done which showed normal electrolytes, renal function, liver panel and vitamin-D level. Last lipid levels drawn earlier this year are also within normal limits as well as her fasting glucose levels. She currently follows up with Oncology , and latest CA 27-29 was within normal limits. She is up-to-date with her screening mammogram. She is currently being followed by endocrine clinic for elevated serum calcium and parathyroid hormone. Her parathyroid hormone was elevated here at [place] lab, but patient states that she had another parathyroid level done in [place] and it came back within normal limits. She has macular degeneration, currently sees Dr. Baxter and receives Eylea injections and takes PreserVision. She has been feeling well with no complaints at present time. [facility] Medical History (Updated 12/27/23 @ 10:02 by Ingrid Vieyra MD) Osteopenia of multiple sites Macular degeneration, bilateral Impaired fasting glucose Dyslipidemia Left groin pain Thyroid nodule Hyperparathyroidism Internal hemorrhoids Vitamin D deficiency Osteoporosis History of breast cancer Menopause, premature Irritable bowel syndrome with constipation and diarrhea Epigastric pain Essential hypertension Invasive ductal carcinoma of right breast Carpal tunnel syndrome Fatty liver IBS (irritable bowel syndrome) Lyme disease GERD (gastroesophageal reflux disease) Sarcoidosis Surgical History H/O colonoscopy History of left mastectomy (~06/09/18) History of removal of Port-a-Cath (~02/04/18) History of bilateral mastectomy (~04/02/17) History of left breast biopsy (~2017) History of cholecystectomy (~04/15/14) History of tubal ligation History of tonsillectomy History of lumpectomy of right breast (~1997) Family History Father History of heart disease History of cardiovascular disorder Mother History of diabetes mellitus History of hypertension History of myocardial infarction History of emphysema Sister History of rheumatoid arthritis Brother History of rheumatoid arthritis Father Substance use disorder Son Substance use disorder Social History Household Members: Children Housing: House Are you a primary career development coordinator/teacher to a significant other at home: No Do you presently have visiting nurse or other home services: No Alcohol intake: never Patient Tobacco Use Status: Never used Tobacco e-Cigarette/Vaping Use: Never Used Advance Directives Date on File: 09/04/21 service: No Current occupational status: retired Cognitive needs: No Hearing needs: No Vision needs: No Questionnaire PHQ-9 Over the last 2 weeks, how often have you been bothered by any of the following problems? 1. Little interest or pleasure in doing things: not at all 2. Feeling down, depressed, or hopeless: not at all 3. Trouble falling or staying asleep, or sleeping too much: not at all 4. Feeling tired or having little energy: not at all 5. Poor appetite or overeating: not at all 6. Feeling bad about yourself - or that you are a failure or have let yourself or your family down: not at all 7. Trouble concentrating on things, such as reading the newspaper or watching television: not at all 8. Moving or speaking so slowly that other people could have noticed. Or the opposite - being so fidgety or restless that you have been moving around a lot more than usual: not at all 9. Thoughts that you would be better off or of hurting yourself in some way: not at all Total score: 0 Depression Screening Interpretation: Negative Depression Screening Done: Yes 13813 - PHQ-9 Billing: Yes Source: Developed by Drs. Ismael Bazan, Josephine Medellin, Chris Guerrero and colleagues, with an educational lea from [employer]. Thrive Questionnaire Date Thrive assessed: 12/27/23 I am a: Patient What is your living situation today?: I have a steady place to live Within the past 12 months, did the food you bought not last and you didn't have the money to get more?: Never true Within the past 12 months, did you worry whether your food would run out before you got money to buy more?: Never true Do you have trouble paying for medicines?: No Do you have trouble getting transportation to medical appointments?: No Do you have trouble paying your heating and electricity bill?: No Do you have trouble taking care of your child, family member or friend?: No Do you have trouble with day-to-day activities such as bathing, preparing meals, shopping, managing finances, etc.?: No Are you currently unemployed and looking for a job?: No Are you interested in more education?: No THRIVE Score: 0 AUDIT C Alcohol Use Questionnaire (AUDIT-C) 3. How often do you have six or more drinks on one occasion?: Never Total Score: 0 GABRIEL-7 AMB Questionnaire GABRIEL-7 Date GABRIEL - 7 assessed: 12/27/23 Feeling nervous, anxious, or on edge: 0 = Not at all Not being able to stop or control worryin = Not at all Worrying too much about different things: 0 = Not at all Trouble relaxin = Not at all Being so restless that it is hard to sit still: 0 = Not at all Becoming easily annoyed or irritable: 0 = Not at all Feeling afraid as if something awful might happen: 0 = Not at all Total GABRIEL-7 score (0-4 normal; 5-9 mild; 10-14 moderate; 15-21 severe): 0 Source: Developed by Drs. Ismael Bazan, Josephine Medellin, Chris Guerrero and colleagues, with an educational lea from [employer]. GABRIEL-7 Assessment Billing GABRIEL-7 Assessment Tool: GABRIEL-7 Assessment 51037 Review of Systems Const All systems reviewed & are unremarkable except as noted in HPI and below Denies chills and Denies fever(s) Eyes Details: Followed by Dr. Villalta for macular degeneration ENT Reports no additional complaints Card Denies chest pain, Denies rapid heart rate and Denies irregular heart rhythm Resp Denies chest congestion, Denies cough and Denies hemoptysis GI Denies abdominal pain, Denies bloating, Denies constipation and Denies diarrhea Reports no additional complaints Musc Reports no additional complaints Skin/Breast Denies breast skin changes and Denies skin ulcer Neuro Reports no additional complaints Psych Reports no additional complaints Ben/Lymph Denies lymphadenopathy Physical exam (Primary Care) Tobacco/Smoking Status: Tobacco use Status Tobacco use date assessed 12/27/23 12/27/23 09:36 Patient Tobacco Use Status Never used Tobacco 12/27/23 09:36 e-Cigarette/Vaping Use Never Used 12/27/23 09:36 PHQ-9: PHQ-9 Score PHQ-9: Total score 0 12/27/23 10:00 Depression Screening Interpretation: Negative Thrive Assessment: Date of Thrive Assessment Date Thrive assessed 12/27/23 12/27/23 09:36 Telehealth Telehealth Telehealth Platform: ULTRA Testing Location of provider rendering services: practice address Location of patient: address on file Patient Identification confirmed using: Name, : Yes Telehealth method: video Patient verbally consented to treatment: Yes Patient verbally consented to billing insurance company: Yes Patient informed of any privacy concerns related to visit: Yes Minutes spent on Phone/Video with Pt.: 15 Results Reviewed Results Reviewed: Name: Tiffany Perdue Age/Sex: 68/F : 1955 Unit#: [id number] Attend Dr: Corrie Herrera MD Re11/29/23 Status: REG RCR [facility] Disch: SPEC : [id number] JT: 11/29/23 STATUS: COMP REQ : [id number] RECD: 11/29/[address]: Corrie Herrera MD COMP: 11/29/23 ENTERED: 11/29/[address]: Ingrid Vieyra MD ORDERED: CMP, Vitamin D 25-OH/R Test Result Flag Reference Sodium 143 135-145 mmol/L Potassium 4.2 3.3-5.1 mmol/L CL 105 96-108 mmol/L CO2 31 H 22-29 mmol/L Gap 11 L 12-20 BUN 17 H 9-16 mg/dL Creat 0.68 0.5-1.4 mg/dL Estimated CrCl 77.2 Provided height and weight: 154.94 cm, 80.6 kg. eGFR (calculated from the MDRD study equation) and eCrCl (calculated from the Cockcroft-Gault equation) are based on different parameters and may not yield comparable results. If eCrCl result is absurd, please check patient's height/weight. EGFR > 60 NOTE: For -Palest[place] individuals, multiply the r esult by 1.210. Chronic Kidney Disease: Estimated GFR < 60 mL/min/1.73m2 Severe Kidney Disease: Estimated GFR < 15 mL/min/1.73m2 Glucose, Random 123 H 60-115 mg/dL CA 9.8 8.4-10.2 mg/dL Total Bili 0.4 0.0-1.0 mg/dL AST (GOT) 23 5-31 U/L ALT (GPT) 16 0-31 U/L Protein, Total 7.5 6.5-8.0 g/dL Alb 4.3 3.5-5.0 g/dL Alk Phos 75 39-117 U/L Vit D 25-OH Tot 33.8 >30 ng/mL Health Based Reference Values* < 20 ng/mL Deficient 20-30 ng/mL Insufficient > 30 ng/mL Sufficient Laboratory Tests 05/31/22 11/29/23 10:48 10:47 CA 27-29 28 25 Coding Level of Care Code Tele Est Pt Level 3 (21931) Diagnoses Osteopenia of multiple sites M85.89 Macular degeneration of both eyes, unspecified type H35.30 Macular degeneration type: unspecified type Essential hypertension I10 Additional Codes GABRIEL-7 Assessment Billing - GABRIEL-7 Assessment Tool: GABRIEL-7 Assessment 49937 ([id number]) Assessment & Plan Assessment & Plan (1) Osteopenia of multiple sites: Comment: Noted on bone density 07/23/2022 Code(s): M85.89 - Other specified disorders of bone density and structure, multiple sites Category: Medical Plan: Continue taking adequate calcium and take vitamin-D 3 supplements as directed. Get regular weight-bearing exercise. Currently being followed by endocrine for possible hyperparathyroidism (2) Macular degeneration, bilateral: Comment: Sees Dr. Villalta Code(s): H35.30 - Unspecified macular degeneration Category: Medical Qualifiers: Macular degeneration type: unspecified type Qualified Code(s): H35.30 - Unspecified macular degeneration Plan: Followed by Dr. Villalta , currently on Eylea and PreserVision (3) Essential hypertension: Code(s): I10 - Essential (primary) hypertension Category: Medical Plan: Blood pressure goalless than 130/80. Continue with current medication. Reinforced importance of following a low sodium diet, getting regular exercise, and lowering stress levels.
--- OUTSIDE RECORDS SUMMARY | 2023-12-27 09:38 | XMS_ITS | Patient Health Record ---
Author Organization [facility] Address [address] [place] [address] Care Team Providers Care Seaweed Harvester Name Role Phone Azalia MARRERO, Ingrid Primary Care Provider Ismael Blue [phone] ALLERGIES Allergen (clinical drug ingredient) Drug/Non Drug Allergy documented on EMR Reaction Allergy Type Onset Date Status Penicillin Unknown Drug Allergy Active hydrochlorothiazide Hydrochlorothiazide Unknown Drug Aller gy Active REASON FOR REFERRAL No Information MEDICATIONS Medication SIG (Take, Route, Frequency, Duration) Notes Start Date End Date Status Omeprazole 40 MG Oral for 90 A ctive amLODIPine Besylate 10 MG 1 tablet Orally Once a day Active Vitamin D Active Vitamin B Complex Ac tive Olmesartan Medoxomil 20 MG Oral for 90 Active Doxazosin Mesylate 2 MG Oral for 90 Active Cetirizine HCl 10 MG Oral for 30 Active Albuterol Active IMMUNIZATIONS Vaccine Route Administration Date Status Comme nts Influenza Unknown 12/29/2020 Administered SOCIAL HISTORY Sex Assigned At : Social History Observation Description Sex Assigned At Unknown Alcohol Screen Question Answer Notes Did you have a drink containing alcohol in the p ast year? No Points 0 Interpretation Negative PROBLEMS Problem Type ICD Code Onset Dates Problem Status W/U Status Risk SNOMED Code Notes Problem Encounter for screening for malignant neoplasm of colon (Z12.11) Active confirmed Screening for malignant neoplasm of colon (222344494) Problem Gastric polyp (K31.7) Active confirmed Gastric polyp (10258191) Problem Gastritis (K29.70) Active confirmed Gas tritis (7136561) Problem GERD (gastroesophageal reflux disease) (K21.9) Active confirmed Gastroesophagea l reflux disease (078252612) Problem Gastroesophageal reflux (K21.9) Active confirmed Esophageal re flux finding (224535384) Problem Diverticulosis of colon (K57.30) Active confirmed Diverticulosi s of colon (240471241) PLAN OF TREATMENT Pending Test Test Name Order Date Pathology 09/04/2021 Future Test Test Name Order Date COLONOSCOPY 02/23/2011 UPPER GI ENDOSCOPY 08/15/2021 COLONOSCOPY 08/15/2021 Insurance Providers Payer Name Payer Address Payer Phone Subscriber Number Group Number Insured Name Patient Relationship to Insured Coverage Start Date Coverage End Date [facility] [address] [address] [place], [place] [id number] CORNELIUS FLOREZ Self - patient is the insured MEDICAL (GENERAL) HISTORY Medical History History ICD Code Hypertension Hyperlipidemia Breast cancer on the right t reated with chemotherapy, radiation, and lumpectomy in 1997 Fatty liver Mild asthma Denies [place], diabetes, stroke, or kidney d isease Left sided breast cancer in 2018-chemo and bilateral mastectomy--Dr. Herrera and Dr. Henderson Negative colonoscopy in 03/2011 GERD Macular degeneration-receives eye inject ion in the right eye Q 3 months Surgical History Surgery Date(Month/Year) Lumpectomy for breast cancer right 1997 Tubal ligation Cholecystectomy 2014 Bilateral mastectomy 06/09/2018 Removal of port a cath 02/04/2018 Tonsillectomy
== END 2023-12-27 10:19 | disposition home or self-care (01) ==
LOC: HO.HMCC 09:36
PROVIDERS: PCP Internal Medicine; Visit Provider Internal Medicine
DX: H35.30 Unspecified macular degeneration (principal); M85.89 Other specified disorders of bone density and structure, multiple sites; I10 Essential (primary) hypertension

== ENCOUNTER → 2023-12-27 09:36 | Outpatient (BNVA) | payer MEDICARE, SELFPAY | PROVIDERS: PCP Internal Medicine; Visit Provider Internal Medicine | DX: I10 Essential (primary) hypertension (principal); M85.89 Other specified disorders of bone density and structure, multiple sites; H35.30 Unspecified macular degeneration | CPT/HCPCS: 96127 ==

== ENCOUNTER 2024-06-02 09:55 | Outpatient (AMB) | payer MEDICARE, SELFPAY ==
--- NOTE | 2024-06-02 09:55 | MHC.OFFVIS ---
Vital Signs 06/02/24 10:02 Height 5 ft 1 in Weight 178 lb 8 oz BMI 33.7 BP 136/63 Blood Pressure Location Lt brachial Position Sitting Pulse 89 Intake Visit Reasons: Breast exam, 1 year follow up Intake Note: Patient is seen in office for yearly breast exam. Pt c/o: denies any concerns regarding the breast Network Design Architect Required: No Crime Laboratory Analyst: Crime Laboratory Analyst Present Accompanied by: Self / Same As Patient Allergies Penicillins Allergy (Severe, Verified 06/02/24 09:57) ANAPHYLAXIS adhesive tape Allergy (Intermediate, Verified 06/02/24 09:57) BLISTERS hydrochlorothiazide Allergy (Mild, Verified 06/02/24 09:57) PALPITATION, PALPITATIONS, palpitations iopromide [From ULTRAVIST] Allergy (Mild, Verified 06/02/24 09:57) UTICARIA, HIVES latex [LATEX] Allergy (Unknown, Verified 06/02/24 09:57) RASH methotrexate [METHOTREXATE] Adverse Reaction (Severe, Verified 06/02/24 09:57) DIARRHEA-LARGER DOSE OF MED chlorthalidone [CHLORTHALIDONE] Adverse Reaction (Intermediate, Verified 06/02/24 09:57) SHAKY,ANXIETY sulfamethoxazole [SULFAMETHOXAZOLE] Adverse Reaction (Intermediate, Verified 06/02/24 09:57) STOMACH PAIN atorvastatin [From LIPITOR] Adverse Reaction (Mild, Verified 06/02/24 09:57) MYALGIA IVP dye Allergy (Unknown, Uncoded 06/02/24 09:57) redness and itching HPI Comments Details: 68-year-old female patient returning for follow-up breast examination after bilateral mastectomies. She is status post right breast lumpectomy and sentinel node biopsy for infiltrating ductal carcinoma, ER/OH positive in 1997. She subsequently developed a left breast infiltrating ductal carcinoma, poorly differentiated, triple negative in 2017. At the patient's request she underwent a bilateral mastectomy with left axillary node dissection in March 2017. She required a revision of the mastectomy in June 2018 due to excessive skin. She underwent chemotherapy (Dr. Herrera, MEDF x6 months, LUZ MARINA AC x4 cycles followed by weekly Taxol). Genetic testing of 04/15/2017 was negative for clinically significant mutations and variance of unknown significance. She generally feels well and denies any new chest symptoms. She did have an episode of swelling in the left arm with mild discomfort which subsequently subsided. [facility] Medical History Osteopenia of multiple sites Macular degeneration, bilateral Impaired fasting glucose Dyslipidemia Left groin pain Thyroid nodule Hyperparathyroidism Internal hemorrhoids Vitamin D deficiency Osteoporosis History of breast cancer Menopause, premature Irritable bowel syndrome with constipation and diarrhea Epigastric pain Essential hypertension Invasive ductal carcinoma of right breast Carpal tunnel syndrome Fatty liver IBS (irritable bowel syndrome) Lyme disease GERD (gastroesophageal reflux disease) Sarcoidosis Surgical History H/O colonoscopy History of left mastectomy (~06/09/18) History of removal of Port-a-Cath (~02/04/18) History of bilateral mastectomy (~04/02/17) History of left breast biopsy (~2017) History of cholecystectomy (~04/15/14) History of tubal ligation History of tonsillectomy History of lumpectomy of right breast (~1997) Family History Father History of heart disease History of cardiovascular disorder Mother History of diabetes mellitus History of hypertension History of myocardial infarction History of emphysema Sister History of rheumatoid arthritis Brother History of rheumatoid arthritis Father Substance use disorder Son Substance use disorder Social History Household Members: Children Housing: House Are you a primary laboratory animal care veterinarian to a significant other at home: No Do you presently have visiting nurse or other home services: No Alcohol intake: never Patient Tobacco Use Status: Never used Tobacco e-Cigarette/Vaping Use: Never Used Advance Directives Date on File: 09/04/21 service: No Current occupational status: retired Cognitive needs: No Hearing needs: No Vision needs: No Review of Systems Const All systems reviewed & are unremarkable except as noted in HPI and below Denies chills, Denies fever(s) and Reports weight gain Card Denies chest pain, Denies rapid heart rate and Denies irregular heart rhythm Resp Denies chest congestion, Denies cough and Denies hemoptysis GI Denies abdominal pain, Denies bloating, Denies constipation and Denies diarrhea Skin/Breast Denies breast skin changes and Denies skin ulcer Ben/Lymph Denies lymphadenopathy Physical Exam Vital Signs: Last Vital Signs Pulse 89 03/25/25 10:02 BP 136/63 06/02/24 10:02 BMI result Body Mass Index 33.7 Const General: cooperative, healthy appearing, comfortable, no acute distress, well developed, alert and awake HEENT Head: Yes normocephalic and Yes atraumatic Neck Neck: Yes full ROM, Yes no lymphadenopathy and Yes trachea midline Chest Other: Bilateral mastectomy with well-healed incisions, no subcutaneous nodules, no skin changes, no enlarged lymph nodes in the axilla. No further suspicious changes are identified. Resp Effort & Inspection: normal respiratory effort Skin General skin exam: no rashes or lesions noted Extrem General: Yes no clubbing, cyanosis or edema Assessment & Plan Assessment & Plan (1) Invasive ductal carcinoma of left breast: Code(s): C50.912 - Malignant neoplasm of unspecified site of left female breast Category: Medical (2) Invasive ductal carcinoma of right breast: Code(s): C50.911 - Malignant neoplasm of unspecified site of right female breast Category: Medical Plan Patient returns for bilateral breast cancer follow-up examination. She is status post bilateral mastectomies generally feels well. Examination today revealed well-healed bilateral mastectomies with no new suspicious findings on either side. Patient no longer requires mammograms. She should follow up 1 year, sooner p.r.n.. Coding Level of Care Code Est Pt Level 3 (70647) Diagnoses Invasive ductal carcinoma of left breast C50.912 Invasive ductal carcinoma of right breast C50.911
[2024-06-02 10:02] VITALS: BP 136/63; PULSE 89; BMI 33.7
--- OUTSIDE RECORDS SUMMARY | 2024-06-02 11:31 | XMS_ITS | Patient Health Record ---
Author Organization [facility] Address [address] [place] [address] Care Team Providers Care Echocardiography Radiology Technologist Name Role Phone Azalia MARRERO, Ingrid Primary Care Provider Ismael Blue [phone] Allergies Allergen (clinical drug ingredient) Drug/Non Drug Allergy documented on EMR Reaction Allergy Type Onset Date Status Penicillin Unknown Drug Allergy Active hydrochlorothiazide Hydrochlorothiazide Unknown Drug Aller gy Active Reason For Referral No Information Medications Medication SIG (Take, Route, Frequency, Duration) Notes [...] MG Oral for 30 Active Albuterol Active Immunizations Vaccine Route Administration Date Status Comme nts Influenza Unknown 12/29/2020 Administered Social History Alcohol Screen Question Answer Notes Did you have a drink containing alcohol in the p ast year? No Points 0 Interpretation Negative Section Notes: She does not smoke nor use a ny significant amounts of alcohol She does not smoke nor use a ny significant amounts of alcohol Problems Problem Type SNOMED Code ICD Code Onset Dates Problem Status W/U Status Risk Notes Problem Screening for malignant neoplasm of colon (540766996) Encounter for screening for malignant neoplasm of colon (Z12.11) Active confirmed Problem Gastric polyp (48672836) Gastric polyp (K31.7) Active confirmed Problem Gastritis (9820395) Gastritis (K29.70) Active c onfirmed Problem Gastroesophageal reflux disease (769867061) GERD (gastroesophageal reflux disease) (K21.9) Active confirmed Problem Esophageal reflux finding (911047739) Gastroesophageal reflux (K21.9) Active confirmed Problem Diverticulosis of colon (587945049) Diverticulosis of colon (K57.30) Active confirmed Plan Of Treatment Pending Test Test Name Order Date Pathology 09/04/2021 Future Test Test Name Order Date COLONOSCOPY 02/23/2011 UPPER GI ENDOSCOPY 08/15/2021 COLONOSCOPY 08/15/2021 Insurance Providers Payer Name Payer Address Payer Phone Subscriber Number Group Number Insured Name Patient Relationship to Insured Coverage Start Date Coverage End Date [facility] [employer] [facility] [address] [address] [place], [place] [id number] CORNELIUS FLOREZ Self - patient is the insured Medical (General) History Medical History History ICD Code Hypertension Hyperlipidemia Breast cancer on the right t reated with chemotherapy, radiation, and lumpectomy in 1997 Fatty liver Mild asthma Denies HI, diabetes, stroke, or kidney d isease Left sided breast cancer in 2018-chemo and bilateral mastectomy--Dr. Herrera and Dr. Henderson Negative colonoscopy in 03/2011 GERD Macular degeneration-receives eye inject ion in the right eye Q 3 months Surgical History Surgery Date(Month/Year) Lumpectomy for breast cancer right 1997 Tubal ligation Cholecystectomy 2015 Bilateral mastectomy 06/09/2018 Removal of port a cath 02/04/2018 Tonsillectomy
== END 2024-06-02 10:12 | disposition home or self-care (01) ==
LOC: HO.HGS 09:55
PROVIDERS: PCP Internal Medicine; Visit Provider Surgery
DX: C50.912 Malignant neoplasm of unspecified site of left female breast (principal); C50.911 Malignant neoplasm of unspecified site of right female breast
CPT/HCPCS: 99213

== ENCOUNTER → 2024-06-02 09:55 | Outpatient (BNVA) | payer MEDICARE, SELFPAY | PROVIDERS: PCP Internal Medicine; Visit Provider Surgery | DX: Z08 Encounter for follow-up examination after completed treatment for malignant neoplasm (principal); Z90.13 Acquired absence of bilateral breasts and nipples; Z85.3 Personal history of malignant neoplasm of breast; Z92.21 Personal history of antineoplastic chemotherapy | CPT/HCPCS: 99212 ==

== ENCOUNTER 2024-07-06 10:49 | Outpatient (AMB) | payer MEDICARE, SELFPAY ==
[2024-07-06 10:55] VITALS: BP 104/80; PULSE 82; RESP 16; TEMP 36.7; O2SAT 97; BMI 34.0
--- NOTE | 2024-07-06 10:55 | A.OFFVIS_ITS ---
Intake Vital Signs 07/06/24 10:55 Height 5 ft 1 in Weight 180 lb BMI 34.0 BP 104/80 Blood Pressure Location Rt brachial Position Sitting Respiration 16 Pulse 82 Pulse Source Pulse Oximeter Temp 98.0 F Temp Source Oral Pulse Oximetry (%) 97 Oxygen Delivery Method Room Air Intake Visit Reasons: SWV G0439 Intake Note: Pt is here today for her SWV: last bone denisty scan 07/23/22, colonoscopy 03/29/11 Allergies Penicillins Allergy (Severe, Verified 07/06/24 14:29) ANAPHYLAXIS adhesive tape Allergy (Intermediate, Verified 07/06/24 14:29) BLISTERS hydrochlorothiazide Allergy (Mild, Verified 07/06/24 14:29) PALPITATION, PALPITATIONS, palpitations iopromide [From ULTRAVIST] Allergy (Mild, Verified 07/06/24 14:29) UTICARIA, HIVES latex [LATEX] Allergy (Unknown, Verified 07/06/24 14:29) RASH methotrexate [METHOTREXATE] Adverse Reaction (Severe, Verified 07/06/24 14:29) DIARRHEA-LARGER DOSE OF MED chlorthalidone [CHLORTHALIDONE] Adverse Reaction (Intermediate, Verified 07/06/24 14:29) SHAKY,ANXIETY sulfamethoxazole [SULFAMETHOXAZOLE] Adverse Reaction (Intermediate, Verified 07/06/24 14:29) STOMACH PAIN atorvastatin [From LIPITOR] Adverse Reaction (Mild, Verified 07/06/24 14:29) MYALGIA IVP dye Allergy (Unknown, Uncoded 07/06/24 14:29) redness and itching Medication List - Last Reconciled 07/06/24 by Ingrid Vieyra MD aflibercept 2 mg intravitreal Q12W albuterol sulfate 90 mcg/actuation 2 puffs inhalation Q6H PRN NS amlodipine 5 mg PO DAILY cetirizine 10 mg PO DAILY cholecalciferol (vitamin D3) 1,000 units PO DAILY doxazosin 2 mg PO BEDTIME olmesartan 20 mg PO QAM omeprazole 20 mg PO DAILY vitamins A,C,Y-fnrk-jjytah 4,296 mcg-226 mg-90 mg (PreserVision AREDS) 1 cap PO BID HPI SWV G0439 HPI Details AWV ? 68 year old with history of breast cancer, hypertension, dyslipidemia, impaired fasting glucose, chronic GERD, with history of osteoporosis in the past, now showing osteopenia on latest bone density scan done 07/23/2022, here today for her subsequent annual Wellness Visit . She had a negative Pap smear done 06/15/2020, does not get mammograms anymore, had a double mastectomy, had a colonoscopy 09/04/2021 with removal of 2 tubular adenomas, repeat colonoscopy scheduled for [address] Smith. She had fasting lipid panel done 06/26/23 with normal results, and normal fasting blood sugar check done 05/19/2024. She is up-to-date with her she flu shot, Shingrix vaccine, pneumonia vaccination, and Tdap. ? Medical / Social History Reviewed? Past Medical History ?Yes . ? [place] of Care / Care Team list updated ?Yes . ? Surgical/Hospitalization History ?Yes . ? Current Medications (including OTC and supplements) ?Yes . ? Family History ?Yes . ? Tobacco Control form ?Yes . ? AUDIT-C (Alcohol use) form ?Yes . ? Illicit drug use in Social History ?Yes . ? Current diagnosis of depression? ?No ? Appropriate PHQ2/PHQ9 completed ?Yes . ? Data entered by ?[employer] [place] and reviewed by provider ? Fall Risk ? Fall History? Have you had any falls with injury in the past year? ?No . ? Have you had two or more falls in the past year? ?No . ? Fall Risk Assessment: ?No falls in the past year . ? HRA filled out by the patient, reviewed by Provider and scanned. ? SWV ? Balance? Romberg negative ? Tandem walk ?Yes . ? Walk and Turn ?Yes . ? Rise from sit to stand ?Yes . ?Vision? Corrective lens ?Yes ? Vision screen ? Up-to-date, sees Dr. Villalta for her macular degeneration OU and sees Dr. Hernandez for her routine eye exam ?Hearing? Whisper test ?pass . ?Written Plan?Completed. Already had MOLST and healthcare proxy forms done? [facility] Medical History History of invasive ductal carcinoma of breast Hx of Lyme disease GERD with esophagitis Osteopenia of multiple sites Macular degeneration, bilateral Impaired fasting glucose Dyslipidemia Thyroid nodule Hyperparathyroidism Internal hemorrhoids Vitamin D deficiency Osteoporosis Menopause, premature Irritable bowel syndrome with constipation and diarrhea Essential hypertension Carpal tunnel syndrome IBS (irritable bowel syndrome) Sarcoidosis Surgical History H/O colonoscopy History of left mastectomy (~06/09/18) History of removal of Port-a-Cath (~02/04/18) History of bilateral mastectomy (~04/02/17) History of left breast biopsy (~2017) History of cholecystectomy (~04/15/14) History of tubal ligation History of tonsillectomy History of lumpectomy of right breast (~1997) Family History Father History of heart disease History of cardiovascular disorder Mother History of diabetes mellitus History of hypertension History of myocardial infarction History of emphysema Sister History of rheumatoid arthritis Brother History of rheumatoid arthritis Father Substance use disorder Son Substance use disorder Social History Household Members: Children Housing: House Are you a primary direct care specialist to a significant other at home: No Do you presently have visiting nurse or other home services: No Alcohol intake: never Patient Tobacco Use Status: Never used Tobacco e-Cigarette/Vaping Use: Never Used Advance Directives Date on File: 09/04/21 service: No Current occupational status: retired Cognitive needs: No Hearing needs: No Vision needs: No Female Reproductive History Menstrual Date of last pap smear: 06/15/20 History of abnormal pap smear: No Date of last Bone Density Screenin07/23/22 Questionnaire Medicare Wellness Checkup What [age] What gender do you identify with?: female During the past 4 weeks, how much have you been bothered by emotional problems such as feeling anxious, depressed, irritable, sad or downhearted, and blue?: not at all During the past 4 weeks, has your physical & emotional health limited your social activities with family, friends, neighbors, or groups?: not at all During the past 4 weeks, how much bodily pain have you generally had?: very mild pain During the past 4 weeks, was someone available to help you if you needed & wanted help?: yes, as much as I wanted During the past 4 weeks, what was the hardest physical activity you could do for at least 2 minutes?: heavy Can you get to places out of walking distance without help? (For eg., can you travel alone on buses, taxis or drive your car?): No Can you go shopping for groceries or clothes without someone's help?: No Can you prepare your own meals?: Yes Can you do your housework without help?: Yes Because of any health problems, do you need the help of another person with your personal care needs such as eating, bathing, dressing or getting around the house?: No Can you handle your own money without help?: Yes During the past 4 weeks, how would you rate your health in general?: good During the past 4 weeks how have things been going for you?: pretty well Are you having difficulties driving your car?: not applicable, I don't use a car Do you always fasten your seat belt when you are in a car?: yes, usually During past 4 weeks, have you been bothered by the following: never: Falling or dizzy when standing up, Sexual problems?, Trouble eating well?, Teeth or denture problems? and Problems using the telephone? and seldom: Tiredness or fatigue? Have you fallen 2 or more times in the past year?: No Are you afraid of falling?: No Are you a smoker?: no During the past 4 weeks, how many drinks of wine, beer, or other alcoholic beverages did you have?: no alcohol at all Do you exercise for about 20 minutes 3 or more times a week?: yes, some of the time Have you been given information to help with the following?: no: Hazards in your house that might hurt you? and no: Keeping track of your medications? How often do you have trouble taking medicines the way you have been told to take them?: I always take medicine as prescribed How confident are you that you can control & manage most of your health problems?: very confident What is your race?: White Mini Mental State Exam (MMSE) Orientation What is the (year) (season) (date) (day) (month)?: year (2024), season (spring), date (07/06/2024), day (saturday) and month (june) Where are we (state) (county) (town or city) (hospital) (floor)?: state ([place]), formerly [facility] ([place]), town or city ([place]) and hospital/clinic ([facility]) Score Score: 9 Activity of Daily Living Bathing - sponge bath, tub bath or shower: receives no assistance (gets in/out by self, if usual bathing means Dressing - getting clothes from closets & drawers, including inner/outer garments & fasteners.: gets clothes & gets completely dressed without help Toileting - going to the 'toilet room' for urine/bowel elimination & cleaning self/arranging clothes: goes to toilet room, cleans self, arranges clothes without help Transfer: moves in & out of bed and chair without help (may use support object) Continence: has occasional 'accidents' Feeding: feeds self without help Total Score: 0 Information obtained from: patient Using telephone: independent Traveling: needs assistance Shopping: needs assistance Preparing meals: independent Housework: independent Taking medicine: independent Managing money: independent PHQ-9 Over the last 2 weeks, how often have you been bothered by any of the following problems? 1. Little interest or pleasure in doing things: not at all 2. Feeling down, depressed, or hopeless: not at all 3. Trouble falling or staying asleep, or sleeping too much: not at all 4. Feeling tired or having little energy: not at all 5. Poor appetite or overeating: not at all 6. Feeling bad about yourself - or that you are a failure or have let yourself or your family down: not at all 7. Trouble concentrating on things, such as reading the newspaper or watching television: not at all 8. Moving or speaking so slowly that other people could have noticed. Or the opposite - being so fidgety or restless that you have been moving around a lot more than usual: not at all 9. Thoughts that you would be better off or of hurting yourself in some way: not at all Total score: 0 Depression Screening Interpretation: Negative Depression Screening Done: Yes 06339 - PHQ-9 Billing: Yes Source: Developed by Drs. Ismael Bazan, Josephine Medellin, Chris Guerrero and colleagues, with an educational lea from [employer]. Physical Exam Vital Signs: Last Vital Signs Temp 98.0 F 07/06/24 10:55 Pulse 82 07/06/24 10:55 Resp 16 07/06/24 10:55 BP 104/80 07/06/24 10:55 Pulse Ox 97 07/06/24 10:55 Oxygen Delivery Method Room Air 07/06/24 10:55 BMI result Body Mass Index 34.0 Results Reviewed Results Reviewed: sherlyn: Tiffany Perdue Age/Sex: 68/F : 1955 Unit#: [id number] Attend Dr: Corrie Herrera MD Re05/19/24 Status: REG RCR Location: HO.ONC Disch: SPEC : [id number] JT: 05/19/24 STATUS: COMP REQ : [id number] RECD: 05/19/[address]: Corrie Herrera MD COMP: 05/19/24 ENTERED: 05/19/[address]: Ingrid Vieyra MD ORDERED: CBC Auto Diff Test Result Flag Reference WBC 5.6 4.8-10.8 X10*3/uL RBC 4.12 L 4.20-5.50 X10*6/uL HGB 12.8 12.0-16.0 g/dl HCT 36.7 L 37.0-47.0 % MCV 89.1 80.0-98.0 fL MCH 31.1 27.0-33.0 pg MCHC 34.9 31.0-35.0 g/dl RDW 12.4 11.0-16.0 % PLT 148 L 160-400 X10*3/uL MPV 10.9 9.4-12.3 fL Neut Pct Auto 67.6 45-73 % ImGran Pct Auto 0.2 0.0-0.4 % Lymp Pct Auto 22.3 20-40 % Graves Pct Auto 7.9 2-11 % Eos Pct Auto 1.3 0-4 % Baso Pct Auto 0.7 0-2 % NRBC Pct Auto 0.0 0.0-0.2 /100WBC ANC Neut Abs # 3.8 2.0-8.3 x10*3/uL ImGran Abs Auto 0.01 0.00-0.03 X10*3/uL Lymph Abs Auto 1.2 1.2-4.9 X10*3/uL Graves Abs Auto 0.4 0.1-1.2 X10*3/uL Eos Abs Auto 0.1 0.0-0.4 X10*3/uL Baso Abs Auto 0.0 0.0-0.2 X10*3/uL NRBC Abs Auto 0.000 0.0-0.012 X10*3/uL Name: Tiffany Perdue Age/Sex: 68/F : 1955 Unit#: [id number] Attend Dr: Corrie Herrera MD Re05/19/24 Status: REG RCR Location: HO.ONC Disch: SPEC : [id number] JT: 05/19/24 STATUS: COMP REQ : [id number] RECD: 05/19/[address]: Corrie Herrera MD COMP: 05/19/24 ENTERED: 05/19/[address]: Ingrid Vieyra MD ORDERED: CMP, Vitamin D 25-OH/R Test Result Flag Reference Sodium 143 135-145 mmol/L Potassium 3.7 3.3-5.1 mmol/L CL 106 96-108 mmol/L CO2 29 22-29 mmol/L Gap 12 12-20 BUN 18 H 9-16 mg/dL Creat 0.67 0.5-1.4 mg/dL Estimated CrCl 78.8 Provided height and weight: 154.94 cm, 81.6 kg. eGFR (calculated from the MDRD study equation) and eCrCl (calculated from the Cockcroft-Gault equation) are base d on different parameters and may not yield comparable results. If eCrCl result is absurd, please check patient's height/weight. eGFR > 60 Chronic Kidney Disease: Estimated GFR < 60 mL/min/1.73m2 Severe Kidney Disease: Estimated GFR < 15 mL/min/1.73m2 Glucose, Random 112 60-115 mg/dL CA 9.3 8.4-10.2 mg/dL Total Bili 0.4 0.0-1.0 mg/dL AST (GOT) 24 5-31 U/L ALT (GPT) 21 0-31 U/L Protein, Total 7.4 6.5-8.0 g/dL Alb 4.2 3.5-5.0 g/dL Alk Phos 78 39-117 U/L Vit D 25-OH Tot 31.7 >30 ng/mL Health Based Reference Values* < 20 ng/mL Deficient 20-30 ng/mL Insufficient > 30 ng/mL Sufficient Assessment & Plan Assessment & Plan (1) Encounter for subsequent annual wellness visit (AWV) in Medicare patient: Code(s): Z00.00 - Encounter for general adult medical examination without abnormal findings Plan: Medical wellness checklist reviewed, discussed with the patient and updated. Repeat DEXA scan ordered (2) Osteopenia of multiple sites: Comment: Noted on bone density 07/23/2022 Code(s): M85.89 - Other specified disorders of bone density and structure, multiple sites Plan: . Repeat DEXA scan ordered Continue with vitamin-D 3 supplement, take adequate calcium with dietary sources in stressed importance of doing regular weight- bearing exercise (3) GERD with esophagitis: Comment: Noted on biopsy status post EGD in [address] Smith Code(s): K21.00 - Gastro-esophageal reflux disease with esophagitis, without bleeding Plan: Continued on omeprazole 20 mg daily (4) Macular degeneration, bilateral: Comment: Sees Dr. Villalta Code(s): H35.30 - Unspecified macular degeneration Qualifiers: Macular degeneration type: unspecified type Qualified Code(s): H35.30 - Unspecified macular degeneration Plan: Sees Dr. Villalta and Dr. Hernandez (5) Essential hypertension: Code(s): I10 - Essential (primary) hypertension Plan: Continue with amlodipine 5 mg daily and doxazosin 2 mg supplement as well as olmesartan 20 mg in the morning (6) History of breast cancer: Code(s): Z85.3 - Personal history of malignant neoplasm of breast Plan: Followed by Dr. Herrera (7) Hyperparathyroidism: Code(s): E21.3 - Hyperparathyroidism, unspecified Plan: Followed by endocrine clinic (8) Impaired fasting glucose: Code(s): R73.01 - Impaired fasting glucose Plan: Insert impaired fasting (9) Thyroid nodule: Code(s): E04.1 - Nontoxic single thyroid nodule Plan: Followed by endocrine clinic Orders: Orders XR DEXA axial skeleton 07/06/24 M85.89 - Other specified disorders of bone density and structure, multiple sites Quality Reporting (2019) Depression/Bipolar (159/160/161/177) PHQ-9: Total score: 0 Coding Level of Care Code Medicare Subsequent (G0439) Diagnoses Encounter for subsequent annual wellness visit (AWV) in Medicare patient Z00.00 Osteopenia of multiple sites M85.89 GERD with esophagitis K21.00 Macular degeneration of both eyes, unspecified type H35.30 Macular degeneration type: unspecified type Essential hypertension I10 History of breast cancer Z85.3 Hyperparathyroidism E21.3 Impaired fasting glucose R73.01 Thyroid nodule E04.1 CPT Codes Advance Care Planning - Advance Care Planning discussion: On file, no changes ([id number]) Advance Care Planning - Time spent: 1-15 minutes, on File ([id number]) Additional Codes PHQ-9 - 25191 - PHQ-9 Billing: Yes ([id number]) Advance Care Planning Advance Care Planning discussion: On file, no changes Date of discussion: 07/06/24 Who was present: Patient Forms completed: Health Care Proxy and MOLST Time spent: 1-15 minutes, on File Actual minutes spent: 1
== END 2024-07-06 11:43 | disposition home or self-care (01) ==
LOC: HO.HMCC 10:49
PROVIDERS: PCP Internal Medicine; Visit Provider Internal Medicine
DX: Z00.00 Encounter for general adult medical examination without abnormal findings (principal); M85.89 Other specified disorders of bone density and structure, multiple sites; K21.00 Gastro-esophageal reflux disease with esophagitis, without bleeding; H35.30 Unspecified macular degeneration; I10 Essential (primary) hypertension; Z85.3 Personal history of malignant neoplasm of breast; E21.3 Hyperparathyroidism, unspecified; R73.01 Impaired fasting glucose; E04.1 Nontoxic single thyroid nodule

== ENCOUNTER → 2024-07-06 10:49 | Outpatient (BNVA) | payer MEDICARE, SELFPAY | PROVIDERS: PCP Internal Medicine; Visit Provider Internal Medicine | DX: Z00.00 Encounter for general adult medical examination without abnormal findings (principal); M85.89 Other specified disorders of bone density and structure, multiple sites; K21.00 Gastro-esophageal reflux disease with esophagitis, without bleeding; H35.30 Unspecified macular degeneration; I10 Essential (primary) hypertension; E21.3 Hyperparathyroidism, unspecified; R73.01 Impaired fasting glucose; E04.1 Nontoxic single thyroid nodule; Z85.3 Personal history of malignant neoplasm of breast | CPT/HCPCS: 96127 ==

== ENCOUNTER 2024-08-14 10:11 | Outpatient (REF) | payer MEDICARE, SELFPAY ==
--- NOTE | ~2024-08-14 | XR_ITS ---
EXAMINATION: XR SOFT TISSUE NECK CLINICAL INDICATION: R09.A2 - Foreign body sensation, throat COMPARISON: CT neck March 2018 TECHNIQUE: 2 views of the soft tissue neck were obtained. FINDINGS: There is mild convexity of the soft tissues anterior to the C6 and C7, similar to the prior CT. No opaque foreign body is demonstrated. C5-6 which is moderate disc space narrowing and anterior osteophytes. XR/XR soft tissue neck IMPRESSION: Unremarkable soft tissue study. C5-6: Moderate degenerative disc disease. Electronically signed by: Leonel Moreno MD 08/14/2024 11:39 AM EDT
== END 2024-08-14 10:12 | disposition home or self-care (01) ==
LOC: HO.HMGCX 10:11
PROVIDERS: PCP Internal Medicine; Visit Provider Physician Assistant
DX: R09.A2 Foreign body sensation, throat (principal)
CPT/HCPCS: 70360; 99212

== ENCOUNTER 2024-08-14 10:11 | Outpatient (AMB) | payer MEDICARE, SELFPAY ==
[2024-08-14 10:26] VITALS: BP 134/90; PULSE 75; RESP 16; TEMP 36.7; O2SAT 95; BMI 34.0
--- NOTE | 2024-08-14 10:26 | AM.OFFWIN_ITS ---
Intake Vital Signs 08/14/24 10:26 Height 5 ft 1 in Weight 180 lb BMI 34.0 BP 134/90 H Blood Pressure Location Rt brachial Position Sitting Respiration 16 Pulse 75 Pulse Source Pulse Oximeter Temp 98.0 F Temp Source Oral Pulse Oximetry (%) 95 Oxygen Delivery Method Room Air Intake Visit Reasons: EP squeezing in neck feeling, frog in throat Intake Note: Pt is here today feels neck squeezing: Pt says has hx of thyroid nodule Patient Tobacco Use Status: Never used Tobacco Allergies Penicillins Allergy (Severe, Verified 08/14/24 10:26) ANAPHYLAXIS adhesive tape Allergy (Intermediate, Verified 08/14/24 10:26) BLISTERS hydrochlorothiazide Allergy (Mild, Verified 08/14/24 10:26) PALPITATION, PALPITATIONS, palpitations iopromide [From ULTRAVIST] Allergy (Mild, Verified 08/14/24 10:26) UTICARIA, HIVES latex [LATEX] Allergy (Unknown, Verified 08/14/24 10:26) RASH methotrexate [METHOTREXATE] Adverse Reaction (Severe, Verified 08/14/24 10:26) DIARRHEA-LARGER DOSE OF MED chlorthalidone [CHLORTHALIDONE] Adverse Reaction (Intermediate, Verified 08/14/24 10:26) SHAKY,ANXIETY sulfamethoxazole [SULFAMETHOXAZOLE] Adverse Reaction (Intermediate, Verified 08/14/24 10:26) STOMACH PAIN atorvastatin [From LIPITOR] Adverse Reaction (Mild, Verified 08/14/24 10:26) MYALGIA IVP dye Allergy (Unknown, Uncoded 08/14/24 10:26) redness and itching HPI HPI Comments History of Present Illness Details Patient is a 68yo F with hx of GERD, breast ca, HTN, hyperparathryoid ism, thyroid nodule who presents to office with throat complaint She states a few weeks symptoms ongoing States anterior throat pain Has associated tightness in back of neck Intermittent R ear pain States mainly the upper posterior neck tightness and throat tightness Pt states she sleeps fine, notices it when she wakes and throughout the day Improving factors; tried tylenol without relief Worsening; none noted. States no difficulty eating or swallowing Has had swallowing tests in the past She has GERD and has been taking her at home medications as directed States it feels different than her previous reflux Had an US thyroid last in 2023 that showed R thyroid nodule that was stable and not concerning No CP or palpitations No fever, chills or cold like symptoms PFSH Medical History History of invasive ductal carcinoma of breast Hx of Lyme disease GERD with esophagitis Osteopenia of multiple sites Macular degeneration, bilateral Impaired fasting glucose Dyslipidemia Thyroid nodule Hyperparathyroidism Internal hemorrhoids Vitamin D deficiency Osteoporosis Menopause, premature Irritable bowel syndrome with constipation and diarrhea Essential hypertension Carpal tunnel syndrome IBS (irritable bowel syndrome) Sarcoidosis Surgical History H/O colonoscopy History of left mastectomy (~06/09/18) History of removal of Port-a-Cath (~02/04/18) History of bilateral mastectomy (~04/02/17) History of left breast biopsy (~2017) History of cholecystectomy (~04/15/14) History of tubal ligation History of tonsillectomy History of lumpectomy of right breast (~1997) Family History Father History of heart disease History of cardiovascular disorder Mother History of diabetes mellitus History of hypertension History of myocardial infarction History of emphysema Sister History of rheumatoid arthritis Brother History of rheumatoid arthritis Father Substance use disorder Son Substance use disorder Social History Household Members: Children Housing: House Are you a primary health care facilities inspector to a significant other at home: No Do you presently have visiting nurse or other home services: No Alcohol intake: never Patient Tobacco Use Status: Never used Tobacco e-Cigarette/Vaping Use: Never Used Advance Directives Date on File: 09/04/21 service: No Current occupational status: retired Cognitive needs: No Hearing needs: No Vision needs: No Physical Exam Vital Signs: Last Vital Signs Temp 98.0 F 08/14/24 10:26 Pulse 75 08/14/24 10:26 Resp 16 08/14/24 10:26 BP 134/90 H 08/14/24 10:26 Pulse Ox 95 08/14/24 10:26 Oxygen Delivery Method Room Air 08/14/24 10:26 BMI result Body Mass Index 34.0 Assessment & Plan Assessment & Plan (1) Sensation of lump in throat: Code(s): R09.A2 - Foreign body sensation, throat Plan: Patient seen and evaluated. 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 as pt has no cold symptoms, is afebrile and duration of symptoms not consitent Pt has no nuchal rigidity Xray interpreted by me with patent airway Will send PCP a message for patient follow up for possible repeat US imaging of thyroid and further evaluation/management We discussed ER s/s that warrent immediate evaluation and tx such as fever, inability to swallow, worsening tightness, tongue edema etc and pt gave verbal understanding and had no additional questions or concerns at time of discharge All questions answered Orders: Orders XR soft tissue neck Today R09.A2 - Foreign body sensation, throat Coding Level of Care Code Est Pt Level 3 (20422) Diagnoses Sensation of lump in throat R09.A2
--- OUTSIDE RECORDS SUMMARY | 2024-08-14 10:55 | XMS_ITS | Patient Health Record ---
Author Organization [facility] Address [address] [place] [address] Care Team Providers Care Special Events Planner Name Role Phone Azalia MARRERO, Ingrid Primary Care Provider Ismael Blue [phone] Allergies Allergen (clinical drug ingredient) Drug/Non Drug [...] Problem Screening for malignant neoplasm of colon (868131036) Encounter for screening for malignant neoplasm of colon (Z12.11) Active confirmed Problem Gastric polyp (25744215) Gastric polyp (K31.7) Active confirmed Problem Gastritis (7243057) Gastritis (K29.70) Active c onfirmed Problem Gastroesophageal reflux disease (562769506) GERD (gastroesophageal reflux disease) (K21.9) Active confirmed Problem Esophageal reflux finding (256666165) Gastroesophageal reflux (K21.9) Active confirmed Problem Diverticulosis of colon (325275858) Diverticulosis of colon (K57.30) Active confirmed Plan Of Treatment Pending Test Test Name Order Date Pathology 09/04/2021 Future Test Test Name Order Date COLONOSCOPY 02/23/2011 UPPER GI ENDOSCOPY 08/15/2021 COLONOSCOPY 08/15/2021 Insurance Providers Payer Name Payer Address Payer Phone Subscriber Number Group Number Insured Name Patient Relationship to Insured Coverage Start Date Coverage End Date [facility] [employer] [facility] [address] [address] [place], [place] [id number] CORNELIUS FLOREZ Self - patient is the insured Medical (General) History Medical History History ICD Code Hypertension Hyperlipidemia Breast cancer on the right t reated with chemotherapy, radiation, and lumpectomy in 1997 Fatty liver Mild asthma Denies CT, diabetes, stroke, or kidney d isease Left [...]
== END 2024-08-14 11:33 | disposition home or self-care (01) ==
PROVIDERS: PCP Internal Medicine; Visit Provider Physician Assistant
DX: R09.A2 Foreign body sensation, throat (principal)

== ENCOUNTER → 2024-08-14 11:01 | Outpatient (BNV) | payer MEDICARE, SELFPAY | PROVIDERS: PCP Internal Medicine; Visit Provider Radiology Diagnostic Radiology | DX: R09.A2 Foreign body sensation, throat (principal) | CPT/HCPCS: 70360 ==

== ENCOUNTER 2024-08-27 10:10 | Outpatient (REF) | payer MEDICARE, SELFPAY ==
--- NOTE | ~2024-08-27 | MM_ITS ---
EXAMINATION: DXA BONE DENSITY AXIAL HISTORY: M85.89 - Other specified disorders of bone density and structure TECHNIQUE: [employer] Dual energy absorptiometry (DEXA) of the lumbar spine, total left hip, and femoral neck was performed. COMPARISON: Comparison is made with the prior examination dated 07/23/2022. FINDINGS: The bone mineral density of the lumbar spine is 0.915, corresponding to a T-score of -2.1, and a Z-score of -1.0. This is indicative of osteopenia. This represents a BMD change of -7.4% compared to the prior exam. This is statistically significant. The bone mineral density of the left total hip is 0.826, corresponding to a T-score of -1.4, and a Z-score of -0.5. This is indicative of osteopenia. This represents a BMD change of -2.5% compared to the prior exam. This is not statistically significant. The bone mineral density of the left femoral neck is 0.776, corresponding to a T-score of -1.9, and a Z-score of -0.6. This is indicative of osteopenia. This represents a BMD change of 2.4% compared to the prior exam. FRACTURE RISK: The FRAX index suggests a ten year probability of major osteoporotic fracture of 10.3%, and of hip fracture 1.6%. MM/XR DEXA axial skeleton IMPRESSION: Based on bone mineral density, and according to World Health Organization (WHO) criteria, the diagnosis is consistent with osteopenia. All bone density values are in grams per centimeter squared (g/cm2). Statistically, 68% of repeat scans fall within 1 SD (+/- 0.010 g/cm2 for AP spine L1-L4) and 1 SD (+/- 0.012 g/cm2 for femur total) FRAX is a trademark of the [employer] [place] [facility] Metabolic Bone Disease, a World Health Organization (WHO) Collaborating Center. Electronically signed by: Ismael Kerr MD 08/31/2024 07:28 AM EDT
--- OUTSIDE RECORDS SUMMARY | 2024-08-27 11:32 | XMS_ITS | Clinical Summary ---
Author Organization [facility] Address [address] [place] [address] Care Team Providers Care Caramel Cutter Helper Name Role Phone Ingrid Vieyra Md, MD Primary Care Provider Unavailable Allergies Active Allergy Reactions Severity Noted Date Comments Hydrochlorothiazide OTHER 01/02/2012 Palpitations Atorvastatin 06/12/2017 No reaction documented in transfer records Penicillins Anaphylaxis High 01/02/2012 Medications Medication Sig Dispensed Refills Start Date End Date Status amlodipine (NORVASC) 5 MG tablet Take 5 mg by mouth daily. 0 Active cetirizine (ZYRTEC) 10 MG tablet Take 10 mg by mouth daily. 0 Active doxazosin (CARDURA) 2 MG tablet Take 2 mg by mouth at bedtime. 0 Active Vitamin D, Cholecalciferol, 1000 UNITS Cap Take by mouth. 0 Active lisinopril (PRINIVIL,ZESTRIL) 40 MG tablet Take 40 mg by mouth daily. 0 Active ranitidine (ZANTAC) 150 MG capsule Take 150 mg by mouth daily. 0 Active B Complex Vitamins (VITAMIN B COMPLEX) Tab Take by mouth. 0 Active ALBUTEROL SULFATE (PROAIR HFA) 108 (90 BASE) MCG/ACT Aero Soln Inhale 2 Puffs into the lungs every 6 hours as needed for Cough or Wheezing for up to 30 days. 1 Inhaler 11 03/06/2018 Active Active Problems Problem Noted Date GERD (gastroesophageal reflux disease) 0 06/12/2017 Diverticulosis of colon 06/12/2017 History of Lyme disease 06/12/2017 Overview: 2006 + Fatty liver 06/12/2017 Osteopenia 06/12/2017 Lofgrens syndrome 06/12/2017 Carpal tunnel syndrome, bilateral 2017 Overview: Wrist brace at night Vitamin D deficiency 06/12/2017 IBS (irritable bowel syndrome) 8 Asthma 01/01/2017 Hyperlipidemia 05/30/2013 Hypertension 05/30/2013 Sarcoidosis 01/16/2012 History of breast cancer 01/02/2012 Overview: 1998 -S/P lumpectomy , followed by Chemo, radiation Erythema nodosum 01/02/2012 Family History Medical History Relation Name Comments Stroke Brother Alcohol Abuse Father [place] Mother Diabetes, HTN Relation Name Status Comments Brother Father Mother Social History Tobacco Use Types Packs/Day Years Used Date Smoking Tobacco: Never Smokeless Tobacco: Never Sex Assigned at Date Recorded Not on file Last Filed Vital Signs Vital Sign Reading Time Taken Comments Blood Pressure 130/84 03/06/2018 10:00 AM EST Pulse 71 03/06/2018 10:00 AM EST Temperature - - Respiratory Rate - - Oxygen Saturation 92% 03/06/2018 10:00 AM EST r/a Inhaled Oxygen Concentration - - Weight 84.4 kg (186 lb) 03/06/2018 10:00 AM EST Height 157.5 cm (5' 2 ) 03/06/2018 10:00 AM EST Body Mass Index 34.02 03/06/2018 10:00 AM EST Plan of Treatment Health Maintenance Due Date Last Done Comments Covid-19 Vaccine (#1) 05/12/1956 HEPATITIS C SCREENING 1974 DTAP/TDAP/TD (1 - Tdap) 11/13/1975 CHOLESTEROL SCREENING 1976 MAMMOGRAM 1996 COLON CANCER SCREENING 2006 SHINGLES VACCINE (1 of 2) 2006 BONE DENSITY SCREENING 2021 PNEUMOCOCCAL VACCINE (1 - PCV) 2021 BMI CHECK/ADVISE 03/11/2024 DEPRESSION SCREENING/FOLLOWUP 03/11/2024 INFLUENZA (Season Ended) 2024 Care Teams Caramel Cutter Helper Relationship Specialty Start Date End Date Ingrid Vieyra MD, MD PCP - General Internal Medicine 01/11/12
== END 2024-08-27 10:11 | disposition home or self-care (01) ==
LOC: HO.MAMMO 10:10
PROVIDERS: Visit Provider Internal Medicine
DX: Z13.820 Encounter for screening for osteoporosis (principal); M85.89 Other specified disorders of bone density and structure, multiple sites
CPT/HCPCS: 77080

== ENCOUNTER → 2024-08-27 10:30 | Outpatient (BNV) | payer MEDICARE, SELFPAY | PROVIDERS: Visit Provider Radiology Diagnostic Radiology | DX: E28.39 Other primary ovarian failure (principal) | CPT/HCPCS: 77080 ==

== ENCOUNTER 2024-10-12 13:27 | Outpatient (AMB) | payer MEDICARE, SELFPAY ==
--- OUTSIDE RECORDS SUMMARY | 2024-10-12 13:43 | XMS_ITS | Patient Health Record ---
Author Organization [facility] Address [address] [place] [address] Care Team Providers Care Shoe Cobbler Name Role Phone Azalia MARRERO, Ingrid Primary Care Provider Ismael Blue [phone] Allergies Allergen (clinical drug ingredient) Drug/Non Drug [...] Problem Screening for malignant neoplasm of colon (476616131) Encounter for screening for malignant neoplasm of colon (Z12.11) Active confirmed Problem Gastric polyp (41897803) Gastric polyp (K31.7) Active confirmed Problem Gastritis (9452652) Gastritis (K29.70) Active c onfirmed Problem Gastroesophageal reflux disease (095104782) GERD (gastroesophageal reflux disease) (K21.9) Active confirmed Problem Esophageal reflux finding (195997603) Gastroesophageal reflux (K21.9) Active confirmed Problem Diverticulosis of colon (218333561) Diverticulosis of colon (K57.30) Active confirmed Plan Of Treatment Pending Test Test Name Order Date Pathology 09/04/2021 Future Test Test Name Order Date COLONOSCOPY 02/23/2011 UPPER GI ENDOSCOPY 08/15/2021 COLONOSCOPY 08/15/2021 Insurance Providers Payer Name Payer Address Payer Phone Subscriber Number Group Number Insured Name Patient Relationship to Insured Coverage Start Date Coverage End Date [facility] [employer] [facility] [address] [address] [place], [place] [id number] CORNELIUS FLOREZ Self - patient is the insured Medical (General) History Medical History History ICD Code Hypertension Hyperlipidemia Breast cancer on the right t reated with chemotherapy, radiation, and lumpectomy in 1997 Fatty liver Mild asthma Denies [place], diabetes, stroke, or kidney d isease Left [...]
[2024-10-12 13:47] VITALS: BP 126/86; PULSE 87; RESP 16; TEMP 36.8; O2SAT 98; BMI 33.3
--- NOTE | 2024-10-12 13:47 | MHC.PC.OV ---
Vital Signs 10/12/24 13:47 Height 5 ft 1 in Weight 176 lb BMI 33.3 BP 126/86 Blood Pressure Location Rt brachial Position Sitting Respiration 16 Pulse 87 Pulse Source Pulse Oximeter Temp 98.2 F Temp Source Oral Pulse Oximetry (%) 98 Oxygen Delivery Method Room Air Intake Visit Reasons: F/U from [place] visit Intake Note: Pt is here today f/u walkin lump on throat Allergies Penicillins Allergy (Severe, Verified 10/18/24 17:16) ANAPHYLAXIS adhesive tape Allergy (Intermediate, Verified 10/18/24 17:16) BLISTERS hydrochlorothiazide Allergy (Mild, Verified 10/18/24 17:16) PALPITATION, PALPITATIONS, palpitations iopromide (From ULTRAVIST) Allergy (Mild, Verified 10/18/24 17:16) UTICARIA, HIVES latex (LATEX) Allergy (Unknown, Verified 10/18/24 17:16) RASH methotrexate (METHOTREXATE) Adverse Reaction (Severe, Verified 10/18/24 17:16) DIARRHEA-LARGER DOSE OF MED chlorthalidone (CHLORTHALIDONE) Adverse Reaction (Intermediate, Verified 10/18/24 17:16) SHAKY,ANXIETY sulfamethoxazole (SULFAMETHOXAZOLE) Adverse Reaction (Intermediate, Verified 10/18/24 17:16) STOMACH PAIN atorvastatin (From LIPITOR) Adverse Reaction (Mild, Verified 10/18/24 17:16) MYALGIA IVP dye Allergy (Unknown, Uncoded 10/18/24 17:16) redness and itching Medication List - Last Reconciled 10/18/24 by Ingrid Vieyra MD aflibercept 2 mg intravitreal Q12W albuterol sulfate 90 mcg/actuation 2 puffs inhalation Q6H PRN NS amlodipine 5 mg PO DAILY cholecalciferol (vitamin D3) 1,000 units PO DAILY doxazosin 2 mg PO BEDTIME famotidine 40 mg PO BEDTIME fexofenadine 60 mg PO BID olmesartan 20 mg PO QAM omeprazole 20 mg PO DAILY vitamins A,C,U-ivfn-fvvbof 4,296 mcg-226 mg-90 mg (PreserVision AREDS) 1 cap PO BID Tobacco use date assessed: 10/12/24 Fall risk assessment: No Falls in past year Last assessed Fall Risk: 10/12/24 Dental Screening Dental Screen Date: 10/12/24 Did you have a dental visit in the last 12 months?: Yes Did you have a dental problem in the last 6 months where you did not have access to dental care?: No Was dental information given to patient?: Patient has dentist HPI F/U from [place] visit HPI Details - The patient is a 68-year-old female presenting with a sensation of a lump in the throat. - The sensation began in early August and has been intermittent, with periods of improvement and recurrence. - An x-ray of the neck was performed, showing no significant findings except for some indentation at C6 to C7. - The patient reports a history of a right thyroid nodule, previously evaluated with an ultrasound in 2023, which was deemed benign. - The patient has a history of gastroesophageal reflux disease (GERD), managed with omeprazole, and experiences symptoms exacerbated by certain foods. [facility] Medical History (Updated 10/18/24 @ 17:19 by Ingrid Vieyra MD) Right thyroid nodule Dysphagia History of invasive ductal carcinoma of breast Hx of Lyme disease GERD with esophagitis Osteopenia of multiple sites Macular degeneration, bilateral Impaired fasting glucose Dyslipidemia Thyroid nodule Hyperparathyroidism Internal hemorrhoids Vitamin D deficiency Osteoporosis Menopause, premature Irritable bowel syndrome with constipation and diarrhea Essential hypertension Carpal tunnel syndrome IBS (irritable bowel syndrome) Sarcoidosis Surgical History H/O colonoscopy History of left mastectomy (~06/09/18) History of removal of Port-a-Cath (~02/04/18) History of bilateral mastectomy (~04/02/17) History of left breast biopsy (~2017) History of cholecystectomy (~04/15/14) History of tubal ligation History of tonsillectomy History of lumpectomy of right breast (~1997) Family History Father History of heart disease History of cardiovascular disorder Mother History of diabetes mellitus History of hypertension History of myocardial infarction History of emphysema Sister History of rheumatoid arthritis Brother History of rheumatoid arthritis Father Substance use disorder Son Substance use disorder Social History Household Members: Children Housing: House Are you a primary day care supervisor to a significant other at home: No Do you presently have visiting nurse or other home services: No Alcohol intake: never Patient Tobacco Use Status: Never used Tobacco e-Cigarette/Vaping Use: Never Used Advance Directives Date on File: 09/04/21 service: No Current occupational status: retired Cognitive needs: No Hearing needs: No Vision needs: No Questionnaire Thrive Questionnaire Date Thrive assessed: 10/10/24 I am a: Patient What is your living situation today?: I have a steady place to live Within the past 12 months, did the food you bought not last and you didn't have the money to get more?: Never true Within the past 12 months, did you worry whether your food would run out before you got money to buy more?: Never true Do you have trouble paying for medicines?: No Do you have trouble getting transportation to medical appointments?: No Do you have trouble paying your heating and electricity bill?: No Do you have trouble taking care of your child, family member or friend?: No Do you have trouble with day-to-day activities such as bathing, preparing meals, shopping, managing finances, etc.?: No Are you currently unemployed and looking for a job?: No Are you interested in more education?: No Please select the resources that you would like help with: None Currently or been in a relationship where the following occur: No concerns reported THRIVE Score: 0 AUDIT C Alcohol Use Questionnaire (AUDIT-C) 1. How often do you have a drink containing alcohol?: Never Total Score: 0 GABRIEL-7 AMB Questionnaire GABRIEL-7 Date GABRIEL - 7 assessed: 12/27/23 Feeling nervous, anxious, or on edge: 0 = Not at all Not being able to stop or control worryin = Not at all Worrying too much about different things: 0 = Not at all Trouble relaxin = Not at all Being so restless that it is hard to sit still: 0 = Not at all Becoming easily annoyed or irritable: 0 = Not at all Feeling afraid as if something awful might happen: 0 = Not at all Total GABRIEL-7 score (0-4 normal; 5-9 mild; 10-14 moderate; 15-21 severe): 0 Source: Developed by Drs. Ismael Bazan, Josephine Medellin, Chris Guerrero and colleagues, with an educational lea from [employer]. Review of Systems Const All systems reviewed & are unremarkable except as noted in HPI and below Denies chills and Denies fever(s) ENT Reports no additional complaints and Reports as per HPI Card Denies chest pain, Denies rapid heart rate and Denies irregular heart rhythm Resp Denies chest congestion, Denies cough and Denies hemoptysis GI Denies abdominal pain, Denies bloating, Denies constipation and Denies diarrhea Musc Reports no additional complaints Skin/Breast Denies breast skin changes and Denies skin ulcer Neuro Reports no additional complaints Endo Reports no additional complaints Ben/Lymph Denies lymphadenopathy Physical exam (Primary Care) Vital Signs: Last Vital Signs Temp 98.2 F 10/12/24 13:47 Pulse 87 10/12/24 13:47 Resp 16 10/12/24 13:47 BP 126/86 10/12/24 13:47 Pulse Ox 98 10/12/24 13:47 Oxygen Delivery Method Room Air 10/12/24 13:47 BMI result Body Mass Index 33.3 Tobacco/Smoking Status: Tobacco use Status Tobacco use date assessed 10/12/24 10/12/24 13:50 Patient Tobacco Use Status Never used Tobacco 10/12/24 13:50 e-Cigarette/Vaping Use Never Used 10/12/24 13:50 Thrive Assessment: Date of Thrive Assessment Date Thrive assessed 10/10/24 10/12/24 13:50 Currently or been in a relationship where the following occur: No concerns reported Const Other: Alert oriented x3, no acute distress noted, ambulatory with normal gait Orientation/consciousness: patient oriented x3 [place] General nose exam: Normal external nose present and No nasal discharge present Face and sinus: Yes face symmetric Mouth: Normal oral and palatal mucosa present and moist mucous membranes Eyes General: appearance normal, both eyes and all related structures Neck Neck: Yes full ROM, Yes no lymphadenopathy and Yes supple Thyroid: Thyroid normal (Nonpalpable) and nontender Resp Auscultation: clear to auscultation bilaterally Cardio Other: S1-S2 present regular rate and GI Other: Please, normal bowel sounds, soft, nontender, no mass palpated Neuro General: patient oriented x3, gait normal, tone normal, moves all extremities, Normal light touch and pain sensation and no focal motor deficits Extrem General: Yes full ROM, Yes no joint enlargement, Yes no pedal edema, Yes no calf tenderness and Yes normal gait Coding Level of Care Code Est Pt Level 4 (27882) Diagnoses Dysphagia, unspecified type R13.10 Dysphagia type: unspecified Right thyroid nodule E04.1 Sensation of lump in throat R09.A2 Assessment & Plan Assessment & Plan (1) Dysphagia: Code(s): R13.10 - Dysphagia, unspecified Category: Medical Qualifiers: Dysphagia type: unspecified Qualified Code(s): R13.10 - Dysphagia, unspecified (2) Right thyroid nodule: Code(s): E04.1 - Nontoxic single thyroid nodule Category: Medical (3) Sensation of lump in throat: Code(s): R09.A2 - Foreign body sensation, throat Category: Medical Plan The plan includes continuing the current management of gastroesophageal reflux disease with omeprazole in the morning and adding famotidine at night to help alleviate symptoms. An ultrasound of the thyroid will be repeated to assess the status of the right thyroid nodule. If symptoms persist, a barium swallow study will be conducted to evaluate for any esophageal obstruction. Patient was informed and verbally consented to the use of an ambient scribe for clinic note documentation during this visit. Orders: Orders US thyroid 10/12/24 E04.1 - Nontoxic single thyroid nodule, R13.10 - Dysphagia, unspecified [place] barium swallow 10/12/24 R09.A2 - Foreign body sensation, throat, R13.10 - Dysphagia, unspecified, R22.1 - Localized swelling, mass and lump, neck Medications: New famotidine 40 mg PO BEDTIME 30 tabs 5RF
== END 2024-10-12 14:35 | disposition home or self-care (01) ==
LOC: HO.HMCC 13:28
PROVIDERS: Visit Provider Internal Medicine
DX: R13.10 Dysphagia, unspecified (principal); E04.1 Nontoxic single thyroid nodule; R09.A2 Foreign body sensation, throat

== ENCOUNTER → 2024-10-12 13:27 | Outpatient (BNVA) | payer MEDICARE, SELFPAY | PROVIDERS: Visit Provider Internal Medicine | DX: R13.10 Dysphagia, unspecified (principal); E04.1 Nontoxic single thyroid nodule; R09.A2 Foreign body sensation, throat | CPT/HCPCS: 99212 ==

== ENCOUNTER 2024-11-24 10:22 | Outpatient (REF) | payer MEDICARE, SELFPAY ==
--- NOTE | ~2024-11-24 | US_ITS ---
EXAMINATION: US THYROID HISTORY: R13.10 - Dysphagia, unspecified TECHNIQUE: Real-time grayscale ultrasound imaging was performed and images were reviewed. COMPARISON: Comparison is made with the prior examination dated 06/07/2023. FINDINGS: SIZE: The right thyroid lobe measures 4.3 x 1.9 x 1.8 cm. The left thyroid lobe measures 4.0 x 2.5 x 1.3 cm. The isthmus measures 6 mm. FLOW: Flow to the gland is normal. ECHOGENICITY: The echotexture of the gland is homogeneous. NODULES: Again seen is a right-sided nodule as described below: Nodule #: 1 Location: Right lower pole measuring 7 x 7 x 8 mm. Shape: Wider than tall (0 points) Margins: Lobulated (2 points) Echotexture: Very hypoechoic (3 points) Composition: Solid (2 points) Calcifications: Punctate calcifications (3 points) Total points: 10 TIRADS: TR5: Highly suspicious. US/US thyroid IMPRESSION: Highly suspicious nodule at the lower pole of the right thyroid lobe. According to ACR TI-RADS guidelines (see below), ultrasound-guided fine-needle aspiration is recommended. ACR TI-RADS Guidelines TR1 (0 points): Benign. No follow-up or biopsy required TR2 (2 points): Not Suspicious. No biopsy or follow up indicated TR3 (3 points): Mildly Suspicious. FNA if >= 2.5 cm, Follow if >= 1.5 cm TR4 (4-6 points): Moderately Suspicious. FNA if >= 1.5 cm, Follow if >= 1.0 cm TR5 (>=7 points): Highly Suspicious. FNA if >= 1.0 cm, Follow if >= 0.5 cm Electronically signed by: Ismael Kerr MD 11/24/2024 11:01 AM EDT
--- OUTSIDE RECORDS SUMMARY | 2024-11-24 13:31 | XMS_ITS | Patient Health Record ---
Author Organization [facility] Address [address] [place] [address] Care Team Providers Care Web Development Instructor Name Role Phone Azalia MARRERO, Ingrid Primary Care Provider Ismael Blue [phone] Allergies Allergen (clinical drug ingredient) Drug/Non Drug [...] Problem Screening for malignant neoplasm of colon (640024085) Encounter for screening for malignant neoplasm of colon (Z12.11) Active confirmed Problem Gastric polyp (37653333) Gastric polyp (K31.7) Active confirmed Problem Gastritis (8861722) Gastritis (K29.70) Active c onfirmed Problem Gastroesophageal reflux disease (865571456) GERD (gastroesophageal reflux disease) (K21.9) Active confirmed Problem Esophageal reflux finding (967858196) Gastroesophageal reflux (K21.9) Active confirmed Problem Diverticulosis of colon (070382674) Diverticulosis of colon (K57.30) Active confirmed Plan Of Treatment Pending Test Test Name Order Date Pathology 09/04/2021 Future Test Test Name Order Date COLONOSCOPY 02/23/2011 UPPER GI ENDOSCOPY 08/15/2021 COLONOSCOPY 08/15/2021 Insurance Providers Payer Name Payer Address Payer Phone Subscriber Number Group Number Insured Name Patient Relationship to Insured Coverage Start Date Coverage End Date [facility] [address] [address] [place], [place] [id number] CORNELIUS FLOREZ Self - patient is the insured Medical (General) History Medical History History ICD Code Hypertension Hyperlipidemia Breast cancer on the right t reated with chemotherapy, radiation, and lumpectomy in 1997 Fatty liver Mild asthma Denies [place], diabetes, stroke, or kidney d isease Left [...]
== END 2024-11-24 10:23 | disposition home or self-care (01) ==
LOC: HO.HMGCX 10:22
PROVIDERS: PCP Internal Medicine; Visit Provider Internal Medicine
DX: R13.10 Dysphagia, unspecified (principal); E04.1 Nontoxic single thyroid nodule
CPT/HCPCS: 76536

== ENCOUNTER → 2024-11-24 10:25 | Outpatient (BNV) | payer MEDICARE, SELFPAY | PROVIDERS: PCP Internal Medicine; Visit Provider Radiology Diagnostic Radiology | DX: E04.1 Nontoxic single thyroid nodule (principal) | CPT/HCPCS: 76536 ==

== ENCOUNTER 2024-12-02 14:25 | Outpatient (AMB) | payer MEDICARE, SELFPAY ==
--- NOTE | 2024-12-02 14:27 | MHC.OFFVIS ---
Vital Signs 12/02/24 14:28 Height 5 ft 1 in Weight 175 lb 11.335 oz BMI 33.2 BP 134/92 H Blood Pressure Location Rt brachial Position Sitting Pulse 84 Pulse Source Pulse Oximeter Pulse Oximetry (%) 96 Oxygen Delivery Method Room Air Intake Visit Reasons: Nontoxic single thyroid nodule Intake Note: Patient present today for Nontoxic single thyroid nodule office visit. 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 Required: No Accompanied by: Self / Same As Patient Allergies Penicillins Allergy (Severe, Verified 12/02/24 14:33) ANAPHYLAXIS adhesive tape Allergy (Intermediate, Verified 12/02/24 14:33) BLISTERS hydrochlorothiazide Allergy (Mild, Verified 12/02/24 14:33) PALPITATION, PALPITATIONS, palpitations iopromide (From ULTRAVIST) Allergy (Mild, Verified 12/02/24 14:33) UTICARIA, HIVES latex (LATEX) Allergy (Unknown, Verified 12/02/24 14:33) RASH methotrexate (METHOTREXATE) Adverse Reaction (Severe, Verified 12/02/24 14:33) DIARRHEA-LARGER DOSE OF MED chlorthalidone (CHLORTHALIDONE) Adverse Reaction (Intermediate, Verified 12/02/24 14:33) SHAKY,ANXIETY sulfamethoxazole (SULFAMETHOXAZOLE) Adverse Reaction (Intermediate, Verified 12/02/24 14:33) STOMACH PAIN atorvastatin (From LIPITOR) Adverse Reaction (Mild, Verified 12/02/24 14:33) MYALGIA IVP dye Allergy (Unknown, Uncoded 12/02/24 14:33) redness and itching Medication List - Last Reconciled 12/02/24 by Kary Mccrary MD aflibercept 2 mg intravitreal Q12W albuterol sulfate 90 mcg/actuation 2 puffs inhalation Q6H PRN NS amlodipine 5 mg PO DAILY cholecalciferol (vitamin D3) 1,000 units PO DAILY doxazosin 2 mg PO BEDTIME famotidine 40 mg PO BEDTIME fexofenadine 60 mg PO BID olmesartan 20 mg PO QAM omeprazole 20 mg PO DAILY vitamins A,C,T-xnuv-zucand 4,296 mcg-226 mg-90 mg (PreserVision AREDS) 1 cap PO BID HPI Comments Details: 69-year-old female coming in today for follow up of right sided thyroid nodule. Also was previously seeing Dr. Maguire for concerns of elevated PTH level with a history of osteoporosis. Last visit 2023. Solitary right-sided thyroid nodule Diagnosed with a this nodule at least dating back . Ultrasound of the thyroid in 2020 had pointed towards a right lower pole solid hypoechoic 0.8 cm nodule. Status post FNA of right lower pole 1 cm nodule in 2021 which came back as benign, Filer category 2. This nodule has remained stable in size over subsequent ultrasounds with the most recent ultrasound thyroid 11/24/2024, I reviewed the images myself which again showed the right lower pole nodule, it almost appears cystic to me but looking at prior images, I can see that this is solid hypoechoic with punctate echogenic foci, however it has remained stable in size over the past 4-5 years with a prior biopsy before which was benign. This is reassuring. Patient was having fullness in her neck whihc has now resolved however this is not related to her thyroid gland. No family history of thyroid cancer. Elevated PTH level : resolved History of osteoporosis : now improved to osteopenia : PCP following She has a history of breast cancer x 2. In the she was diagnosed on the R side and underwent Chemo-radiation. She then developed it on the L side and underwent a bilateral mastectomy and a second round of chemotherapy. She received Tamoxifen for 5 years beginning in 1997. She was never treated with an aromatase inhibitor as her tumor is triple negative. She has been following with Dr. Herrera. First diagnosed with Osteopenia, but herBMD in 2020 revealed Osteoporosis of the hip with T-score of-2.6 of the left femoral neck. She has never been treated for this. After her initial visit in 2020 we completed a full biochemical evaluation which revealed concern for hyperparathyroidism with PTH 99, Albumin 4.4, Calcium 9.9 and Vitamin D 27. 24 hour urinary calcium was WNL. Labs repeated 11/24/2020 with Albumin Calcium 9.5, Albumin 4.5, PTH 93 and Vitamin D 27.1. Labs repeated again 06/02/2021 with Calcium 9.7, Albumin 4.2, PTH 96 and Vitamin D 26.8. Her most recent labs reveal her 24 hour urinary calcium to be low. He had an US of the neck which revealed no obvious parathyroid adenoma, but did reveal a solitary thyroid nodule. Mentioned above. No history of pathologic fracture or ONJ. calcium : Has 1-2 servings of dietary calcium per day in the form of almond milk, yogurt 3-4 times a week, cheese: 3 times a week vitamin D 2000 units daily She was taking Calcium citrate 600 mg PO BID but was unable to tolerate this due to GI distress. Does use omeprazole daily. Was treated with a full year course of Prednisone for her sarcoidosis, but has been off of this for a few years now. Denies ever using an anticoagulant or antiepileptic medication. Does no formal scheduled weight bearing exercise. 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 Menses were regular. She is . She did not breastfeed. Menopause was age 41. She did not use HRT. Denies history of Kidney stones: Denies family history of Osteoporosis or hip fracture. UTD on dental cleanings and sees dentist every 6 months. No planned upcoming dental work or extractions. Interval history DEXA scan 08/27/2024, I reviewed myself which shows osteopenia of the lumbar spine with T-score of -2.1, with a did decline of 7.4% compared to previous bone density in 2022, osteopenia of the hip with T-score of-1.4 at the left total hip with a decline of 2.5% compared to 202, basically stable. Left femoral neck T-score-1.9 also consistent with osteopenia with a an increase of 2.4% compared to 202. FRAX risk score 10.3% for major osteoporotic fracture and hip fracture 1.6%. calcium : Has 1-2 servings of dietary calcium per day in the form of almond milk, yogurt 3-4 times a week, cheese: 3 times a week vitamin D 2000 units daily No fractures Labs repeated at [facility] in December 2023 showed normal PTH level consistent with spuriously elevated PTH level at our lab. Physical exam General: sitting comfortably in no acute distress HEENT: normocephalic/atraumatic, Neck: supple, symmetrical, no thyromegaly , no dorsocervical or supraclavicular fat pads Cardiac: normal heart sounds Pulm: normal breath sounds B/L, no added breath sounds Abd: not distended, no tenderness Extremities: no edema, no signs of myxedema Laboratory Tests 05/17/20 08/17/20 08/23/20 09:50 12:45 07:30 Estim Creat Clear Calc Estimated GFR Calcium 9.4 9.5 Albumin 4.3 4.4 25-OH Vitamin D Total TSH Free T4 PTH Intact Ur Creatinine 24 Hour 1.20 Ur Calcium 24 Hr 113 Calcium/Creat 24 Hr 94 08/23/20 11/24/20 05/30/21 Unknown 09:54 10:03 Estim Creat Clear Calc Estimated GFR Calcium 9.6 9.4 Albumin 4.5 4.3 25-OH Vitamin D Total TSH Free T4 PTH Intact Ur Creatinine 24 Hour 1.1 Ur Calcium 24 Hr Calcium/Creat 24 Hr 06/02/21 06/06/21 10/27/21 07:55 08:00 10:20 Estim Creat Clear Calc Estimated GFR Calcium 9.6 Albumin 4.2 25-OH Vitamin D Total TSH Free T4 PTH Intact 96 H 87 H Ur Creatinine 24 Hour 1.1 Ur Calcium 24 Hr 111 Calcium/Creat 24 Hr 102 10/31/21 11/30/21 05/31/22 08:00 10:13 10:48 Estim Creat Clear Calc Estimated GFR Calcium 9.3 9.3 Albumin 4.5 4.3 25-OH Vitamin D Total TSH Free T4 PTH Intact Ur Creatinine 24 Hour 0.8 L Ur Calcium 24 Hr 67 Calcium/Creat 24 Hr 80 06/19/22 10/17/22 10/19/22 09:50 10:07 08:00 Estim Creat Clear Calc Estimated GFR Calcium 9.8 10.1 Albumin 4.6 4.4 25-OH Vitamin D Total TSH Free T4 PTH Intact 88 H 96 H Ur Creatinine 24 Hour 1.1 Ur Calcium 24 Hr 104 Calcium/Creat 24 Hr 102 11/30/22 12/17/22 06/05/23 11:39 11:50 10:26 Estim Creat Clear Calc Estimated GFR Calcium 9.6 9.6 Albumin 4.5 4.2 25-OH Vitamin D Total TSH 1.20 Free T4 PTH Intact Ur Creatinine 24 Hour Ur Calcium 24 Hr Calcium/Creat 24 Hr 06/26/23 09/17/23 09/19/23 10:35 10:30 08:00 Estim Creat Clear Calc Estimated GFR Calcium 10.0 Albumin 4.4 25-OH Vitamin D Total TSH Free T4 1.00 PTH Intact 85.9 H Ur Creatinine 24 Hour 0.42 L Ur Calcium 24 Hr 50 Calcium/Creat 24 Hr 117 11/29/23 05/19/24 11/23/24 10:47 11:18 10:37 Estim Creat Clear Calc 80.0 Estimated GFR > 60 Calcium 9.8 9.3 9.5 Albumin 4.3 4.2 4.4 25-OH Vitamin D Total 31.7 TSH Free T4 PTH Intact Ur Creatinine 24 Hour Ur Calcium 24 Hr Calcium/Creat 24 Hr EXAMINATION: US THYROID 11/24/24 HISTORY: R13.10 - Dysphagia, unspecified TECHNIQUE: Real-time grayscale ultrasound imaging was performed and images were reviewed. COMPARISON: Comparison is made with the prior examination dated 06/07/2023. FINDINGS: SIZE: The right thyroid lobe measures 4.3 x 1.9 x 1.8 cm. The left thyroid lobe measures 4.0 x 2.5 x 1.3 cm. The isthmus measures 6 mm. FLOW: Flow to the gland is normal. ECHOGENICITY: The echotexture of the gland is homogeneous. NODULES: Again seen is a right-sided nodule as described below: Nodule #: 1 Location: Right lower pole measuring 7 x 7 x 8 mm. Shape: Wider than tall (0 points) Margins: Lobulated (2 points) Echotexture: Very hypoechoic (3 points) Composition: Solid (2 points) Calcifications: Punctate calcifications (3 points) Total points: 10 TIRADS: TR5: Highly suspicious. US/US thyroid IMPRESSION: Highly suspicious nodule at the lower pole of the right thyroid lobe. According to ACR TI-RADS guidelines (see below), ultrasound-guided fine-needle aspiration is recommended. [facility] Medical History Right thyroid nodule Dysphagia History of invasive ductal carcinoma of breast Hx of Lyme disease GERD with esophagitis Osteopenia of multiple sites Macular degeneration, bilateral Impaired fasting glucose Dyslipidemia Thyroid nodule Hyperparathyroidism Internal hemorrhoids Vitamin D deficiency Osteoporosis Menopause, premature Irritable bowel syndrome with constipation and diarrhea Essential hypertension Carpal tunnel syndrome IBS (irritable bowel syndrome) Sarcoidosis Surgical History H/O colonoscopy History of left mastectomy (~06/09/18) History of removal of Port-a-Cath (~02/04/18) History of bilateral mastectomy (~04/02/17) History of left breast biopsy (~2017) History of cholecystectomy (~04/15/14) History of tubal ligation History of tonsillectomy History of lumpectomy of right breast (~1997) Family History Father History of heart disease History of cardiovascular disorder Mother History of diabetes mellitus History of hypertension History of myocardial infarction History of emphysema Sister History of rheumatoid arthritis Brother History of rheumatoid arthritis Father Substance use disorder Son Substance use disorder Social History Household Members: Children Housing: House Are you a primary care associate to a significant other at home: No Do you presently have visiting nurse or other home services: No Alcohol intake: never Patient Tobacco Use Status: Never used Tobacco e-Cigarette/Vaping Use: Never Used Advance Directives Date on File: 09/04/21 service: No Current occupational status: retired Cognitive needs: No Hearing needs: No Vision needs: No Physical Exam Vital Signs: Last Vital Signs Pulse 84 12/02/24 14:28 BP 134/92 H 12/02/24 14:28 Pulse Ox 96 12/02/24 14:28 Oxygen Delivery Method Room Air 12/02/24 14:28 BMI result Body Mass Index 33.2 Assessment & Plan Assessment & Plan (1) Right thyroid nodule: Code(s): E04.1 - Nontoxic single thyroid nodule Category: Medical Plan: 69-year-old female with no family history of thyroid cancer, with a history of radiation for breast cancer in 1989, who is coming in today for follow up of right-sided thyroid nodule. Diagnosed with a this nodule at least dating back . Ultrasound of the thyroid in 2020 had pointed towards a right lower pole solid hypoechoic 0.8 cm nodule. Status post FNA of right lower pole 1 cm nodule in 2021 which came back as benign, Filer category 2. This nodule has remained stable in size over subsequent ultrasounds with the most recent ultrasound thyroid 11/24/2024, I reviewed the images myself which again showed the right lower pole nodule, it almost appears cystic to me but looking at prior images, I can see that this is solid hypoechoic with punctate echogenic foci, however it has remained stable in size over the past 4-5 years with a prior biopsy before which was benign. This is reassuring. At this point this nodule has remained stable in size over the past 5 years and was previously biopsied before and was benign, no need for further follow up for this unless there is some clinical changes. A large part of the visit was spent explaining to the patient correlation with prior ultrasounds, and reassuring her regarding the nodule. We had a lengthy discussion regarding features of suspicious nodules and why her nodule has behaved in a way which is reassuring. Patient does not need to follow up with the endocrinology. (2) Osteopenia of multiple sites: Comment: Noted on bone density 07/23/2022 Code(s): M85.89 - Other specified disorders of bone density and structure, multiple sites Category: Medical Plan: At some point in the past though concerns of elevated PTH level while secondary workup was done for osteoporosis when osteoporosis was seen on bone density in 2020 with T-score of-2.6 at the left femoral neck. This was thought to be a false elevation as [facility]. No more concerns of elevated PTH level. Her last bone density from August 2024 shows osteopenia of the spine and hip with more or less bone density remaining stable. At this point would recommend PCP continues to monitor bone densities every 2 years. She has not had any fractures, remains on vitamin-D and I have asked her to increase her calcium intake with diet. Plan: -PCP to repeat bone density every 2 years -continue vitamin-D 2000 units daily -maintain good nutritional intake of calcium -advised weight-bearing exercise Plan I spent 30 minutes in reviewing the record, seeing the patient and documenting in the medical record. Coding Level of Care Code Est Pt Level 4 (34503) Diagnoses Right thyroid nodule E04.1 Osteopenia of multiple sites M85.89 Time Spent (min) 30
[2024-12-02 14:28] VITALS: BP 134/92; PULSE 84; O2SAT 96; BMI 33.2
--- OUTSIDE RECORDS SUMMARY | 2024-12-02 17:08 | XMS_ITS | Patient Health Record ---
Author Organization [facility] Address [address] [place] [address] Care Team Providers Care Water Conservationist Name Role Phone Azalia MARRERO, Ingrid Primary Care Provider Ismael Blue [phone] Allergies Allergen (clinical drug ingredient) Drug/Non Drug [...] Problem Screening for malignant neoplasm of colon (447673407) Encounter for screening for malignant neoplasm of colon (Z12.11) Active confirmed Problem Gastric polyp (38170124) Gastric polyp (K31.7) Active confirmed Problem Gastritis (6285446) Gastritis (K29.70) Active c onfirmed Problem Gastroesophageal reflux disease (043651863) GERD (gastroesophageal reflux disease) (K21.9) Active confirmed Problem Esophageal reflux finding (165866630) Gastroesophageal reflux (K21.9) Active confirmed Problem Diverticulosis of colon (786009236) Diverticulosis of colon (K57.30) Active confirmed Plan Of Treatment Pending Test Test Name Order Date Pathology 09/04/2021 Future Test Test Name Order Date COLONOSCOPY 02/23/2011 UPPER GI ENDOSCOPY 08/15/2021 COLONOSCOPY 08/15/2021 Insurance Providers Payer Name Payer Address Payer Phone Subscriber Number Group Number Insured Name Patient Relationship to Insured Coverage Start Date Coverage End Date [facility] [employer] [facility] [address] [address] [place], [place] [id number] CORNELIUS FLOREZ Self - patient is the insured Medical (General) History Medical History History ICD Code Hypertension Hyperlipidemia Breast cancer on the right t reated with chemotherapy, radiation, and lumpectomy in 1997 Fatty liver Mild asthma Denies PR, diabetes, stroke, or kidney d isease Left [...]
== END 2024-12-02 15:04 | disposition home or self-care (01) ==
LOC: HO.ENCR 14:26
PROVIDERS: PCP Internal Medicine; Visit Provider Student in an Organized Health Care Education/Training Program
DX: E04.1 Nontoxic single thyroid nodule (principal); M85.89 Other specified disorders of bone density and structure, multiple sites
CPT/HCPCS: 99214

== ENCOUNTER → 2024-12-02 14:25 | Outpatient (BNVA) | payer MEDICARE, SELFPAY | PROVIDERS: PCP Internal Medicine; Visit Provider Student in an Organized Health Care Education/Training Program | DX: E04.1 Nontoxic single thyroid nodule (principal); M85.89 Other specified disorders of bone density and structure, multiple sites | CPT/HCPCS: 99212 ==

== ENCOUNTER 2025-01-04 11:22 | Outpatient (AMB) | payer MEDICARE, SELFPAY ==
[2025-01-04 12:28] VITALS: BP 122/80; PULSE 76; RESP 16; TEMP 36.8; O2SAT 94; BMI 33.3
--- NOTE | 2025-01-04 12:28 | A.OFFPC_ITS ---
Vital Signs 01/04/25 12:28 Height 5 ft 1 in Weight 176 lb BMI 33.3 BP 122/80 Blood Pressure Location Rt brachial Position Sitting Respiration 16 Pulse 76 Pulse Source Pulse Oximeter Temp 98.2 F Temp Source Oral Pulse Oximetry (%) 94 Oxygen Delivery Method Room Air Intake Visit Reasons: 6m follow up Intake Note: Pt is here today for her 6mo. f/u Report Analyst Required: No Allergies Penicillins Allergy (Severe, Verified 01/04/25 12:53) ANAPHYLAXIS adhesive tape Allergy (Intermediate, Verified 01/04/25 12:53) BLISTERS hydrochlorothiazide Allergy (Mild, Verified 01/04/25 12:53) PALPITATION, PALPITATIONS, palpitations iopromide (From ULTRAVIST) Allergy (Mild, Verified 01/04/25 12:53) UTICARIA, HIVES latex (LATEX) Allergy (Unknown, Verified 01/04/25 12:53) RASH methotrexate (METHOTREXATE) Adverse Reaction (Severe, Verified 01/04/25 12:53) DIARRHEA-LARGER DOSE OF MED chlorthalidone (CHLORTHALIDONE) Adverse Reaction (Intermediate, Verified 01/04/25 12:53) SHAKY,ANXIETY sulfamethoxazole (SULFAMETHOXAZOLE) Adverse Reaction (Intermediate, Verified 01/04/25 12:53) STOMACH PAIN atorvastatin (From LIPITOR) Adverse Reaction (Mild, Verified 01/04/25 12:53) MYALGIA IVP dye Allergy (Unknown, Uncoded 01/04/25 12:53) redness and itching Medication List - Last Reconciled 01/04/25 by Ingrid Vieyra MD aflibercept 2 mg intravitreal Q12W albuterol sulfate 90 mcg/actuation 2 puffs inhalation Q6H PRN NS amlodipine 5 mg PO DAILY cholecalciferol (vitamin D3) 1,000 units PO DAILY doxazosin 2 mg PO BEDTIME fexofenadine 60 mg PO BID olmesartan 20 mg PO QAM omeprazole 20 mg PO DAILY vitamins A,C,G-ipih-ylbzrv 4,296 mcg-226 mg-90 mg (PreserVision AREDS) 1 cap PO BID Tobacco use date assessed: 01/04/25 Fall risk assessment: No Falls in past year Last assessed Fall Risk: 01/04/25 Dental Screening Dental Screen Date: 01/04/25 Did you have a dental visit in the last 12 months?: Yes Did you have a dental problem in the last 6 months where you did not have access to dental care?: No Was dental information given to patient?: Patient has dentist HPI 6m follow up HPI0 Details 69 year old lady with history of breast cancer, hypertension, impaired fasting glucose, chronic GERD, with history of osteoporosis in the past, now showing osteopenia on latest bone density scan done 07/23/2022, here today for her follow-up visit. Blood pressure stable and controlled on present treatment. Recently seen at [facility] endocrine clinic for follow-up on her thyroid nodule. As per Dr Mccrary , her right thyroid nodule has remained stable in size over the past 5 years , was previously biopsied before and was benign, no need for further follow up for this unless there is some clinical changes, and there was no need for follow-up with Endocrine Clinic at this point in time. Patient however was still nervous about this and would like to get a 2nd opinion at [facility] endocrine clinic. [facility] Medical History (Updated 01/10/25 @ 04:18 by Ingrid Vieyra MD) Right thyroid nodule Dysphagia History of invasive ductal carcinoma of breast Hx of Lyme disease GERD with esophagitis Osteopenia of multiple sites Macular degeneration, bilateral Impaired fasting glucose Dyslipidemia Internal hemorrhoids Vitamin D deficiency Osteoporosis Menopause, premature Irritable bowel syndrome with constipation and diarrhea Essential hypertension Carpal tunnel syndrome IBS (irritable bowel syndrome) Sarcoidosis Surgical History H/O colonoscopy History of left mastectomy (~06/09/18) History of removal of Port-a-Cath (~02/04/18) History of bilateral mastectomy (~04/02/17) History of left breast biopsy (~2017) History of cholecystectomy (~04/15/14) History of tubal ligation History of tonsillectomy History of lumpectomy of right breast (~1997) Family History Father History of heart disease History of cardiovascular disorder Mother History of diabetes mellitus History of hypertension History of myocardial infarction History of emphysema Sister History of rheumatoid arthritis Brother History of rheumatoid arthritis Father Substance use disorder Son Substance use disorder Social History Household Members: Children Housing: House Are you a primary director of career resources to a significant other at home: No Do you presently have visiting nurse or other home services: No Alcohol intake: never Patient Tobacco Use Status: Never used Tobacco e-Cigarette/Vaping Use: Never Used Advance Directives Date on File: 09/04/21 service: No Current occupational status: retired Cognitive needs: No Hearing needs: No Vision needs: No Questionnaire Thrive Questionnaire Date Thrive assessed: 10/10/24 I am a: Patient What is your living situation today?: I have a steady place to live Within the past 12 months, did the food you bought not last and you didn't have the money to get more?: Never true Within the past 12 months, did you worry whether your food would run out before you got money to buy more?: Never true Do you have trouble paying for medicines?: No Do you have trouble getting transportation to medical appointments?: No Do you have trouble paying your heating and electricity bill?: No Do you have trouble taking care of your child, family member or friend?: No Do you have trouble with day-to-day activities such as bathing, preparing meals, shopping, managing finances, etc.?: No Are you currently unemployed and looking for a job?: No Are you interested in more education?: No Please select the resources that you would like help with: None Currently or been in a relationship where the following occur: No concerns reported THRIVE Score: 0 GABRIEL-7 AMB Questionnaire GABRIEL-7 Date GABRIEL - 7 assessed: 01/04/25 Feeling nervous, anxious, or on edge: 0 = Not at all Not being able to stop or control worryin = Not at all Worrying too much about different things: 0 = Not at all Trouble relaxin = Not at all Being so restless that it is hard to sit still: 0 = Not at all Becoming easily annoyed or irritable: 0 = Not at all Feeling afraid as if something awful might happen: 0 = Not at all Total GABRIEL-7 score (0-4 normal; 5-9 mild; 10-14 moderate; 15-21 severe): 0 Source: Developed by Drs. Ismael Bazan, Josephine Medellin, Chris Guerrero and colleagues, with an educational lea from [employer] GABRIEL-7 Assessment Billing GABRIEL-7 Assessment Tool: GABRIEL-7 Assessment 47398 Review of Systems Const Denies chills and Denies fever(s) Eyes Reports no additional complaints ENT Reports as per HPI and Denies dysphagia Card Denies chest pain, Denies rapid heart rate and Denies irregular heart rhythm Resp Denies chest congestion, Denies cough and Denies hemoptysis GI Denies abdominal pain, Denies bloating, Denies constipation, Denies dysphagia and Denies diarrhea Reports no additional complaints Musc Reports no additional complaints Skin/Breast Denies breast skin changes and Denies skin ulcer Neuro Reports no additional complaints Psych Reports no additional complaints Endo Reports no additional complaints Ben/Lymph Denies lymphadenopathy Physical exam (Primary Care) Vital Signs: Last Vital Signs Temp 98.2 F 01/04/25 12:28 Pulse 76 01/04/25 12:28 Resp 16 01/04/25 12:28 BP 122/80 01/04/25 12:28 Pulse Ox 94 01/04/25 12:28 Oxygen Delivery Method Room Air 01/04/25 12:28 BMI result Body Mass Index 33.3 Tobacco/Smoking Status: Tobacco use Status Tobacco use date assessed 01/04/25 01/04/25 12:30 Patient Tobacco Use Status Never used Tobacco 01/04/25 12:30 e-Cigarette/Vaping Use Never Used 01/04/25 12:30 Thrive Assessment: Date of Thrive Assessment Date Thrive assessed 10/10/24 01/04/25 12:30 Currently or been in a relationship where the following occur: No concerns reported Const Other: Alert oriented x3, no acute distress noted, ambulatory with normal gait [facility] General nose exam: Normal external nose present and No nasal discharge present Face and sinus: Yes face symmetric Mouth: Normal oral and palatal mucosa present and moist mucous membranes Eyes General: appearance normal, both eyes and all related structures Neck Neck: Yes full ROM, Yes no lymphadenopathy and Yes supple Thyroid: Thyroid normal (Nonpalpable) and nontender Resp Auscultation: clear to auscultation bilaterally Cardio Other: S1-S2 present regular rate and GI Other: Please, normal bowel sounds, soft, nontender, no mass palpated General: Yes no CVA tenderness Back/Spine/Pelvis Back: no CVA tenderness and No back tenderness Skin General skin exam: no rashes or lesions noted Neuro General: gait normal, tone normal, moves all extremities, Normal light touch and pain sensation and no focal motor deficits Extrem General: Yes full ROM, Yes no joint enlargement, Yes no pedal edema, Yes no calf tenderness and Yes normal gait Coding Level of Care Code Est Pt Level 4 (33970) Complex EM visit Add On G2211 Diagnoses Right thyroid nodule E04.1 Essential hypertension I10 Osteopenia of multiple sites M85.89 Additional Codes GABRIEL-7 Assessment Billing - GABRIEL-7 Assessment Tool: GABRIEL-7 Assessment 90907 ([id number]) Assessment & Plan Assessment & Plan (1) Right thyroid nodule: Code(s): E04.1 - Nontoxic single thyroid nodule Category: Medical Plan: Patient requesting 2nd opinion regarding management of her right thyroid nodule, would like a referral to [facility] endocrine clinic (2) Essential hypertension: Code(s): I10 - Essential (primary) hypertension Category: Medical Plan: Blood pressure at goal of less than 130/80. Continue with olmesartan, doxazosin, amlodipine at the same dose. Reinforced importance of following a low sodium diet, getting regular exercise, and lowering stress levels. (3) Osteopenia of multiple sites: Comment: Noted on bone density 07/23/2022 Code(s): M85.89 - Other specified disorders of bone density and structure, multiple sites Category: Medical Plan: Reinforced importance of adequate calcium from dietary sources, and vitamin-D 3 supplements at least 2000 units daily, in addition to doing regular weight- bearing exercise. Repeat another bone density scan in 2026 Orders: Referrals Endocrinology Referral E04.1 - Nontoxic single thyroid nodule, E21.3 - Hyperparathyroidism, unspecified
--- OUTSIDE RECORDS SUMMARY | 2025-01-04 14:34 | XMS_ITS | Patient Health Record ---
Author Organization [facility] Address [address] [place] [address] Care Team Providers Care Photographic Specialist Name Role Phone Azalia MARRERO, Ingrid Primary Care Provider Ismael Blue [phone] Allergies Allergen (clinical drug ingredient) Drug/Non Drug Allergy documented on EMR Reaction Allergy Type Onset Date Status Penicillin Unknown Drug Allergy Active hydrochlorothiazide Hydrochlorothiazide Unknown Drug Aller gy Active Reason For Referral No Information Medications Medication SIG (Take, Route, Frequency, Duration) Notes Start Date End Date Status Omeprazole 40 MG Oral; Duration: 90 Active amLODIPine Besylate 10 MG 1 tablet Orally Once a day Active Vitamin D Active Vitamin B Complex Ac tive Olmesartan Medoxomil 20 MG Oral; Duration: 90 Active Doxazosin Mesylate 2 MG Oral; Duration: 90 Active Cetirizine HCl 10 MG Oral; Duration: 30 Active Albuterol Active Immunizations Vaccine Route [...] Problem Screening for malignant neoplasm of colon (779109302) Encounter for screening for malignant neoplasm of colon (Z12.11) Active confirmed Problem Gastric polyp (89942728) Gastric polyp (K31.7) Active confirmed Problem Gastritis (8152910) Gastritis (K29.70) Active c onfirmed Problem Gastroesophageal reflux disease (209216905) GERD (gastroesophageal reflux disease) (K21.9) Active confirmed Problem Esophageal reflux finding (209301706) Gastroesophageal reflux (K21.9) Active confirmed Problem Diverticulosis of colon (733182587) Diverticulosis of colon (K57.30) Active confirmed Plan Of Treatment Pending Test Test Name Order Date Pathology 09/04/2021 Future Test Test Name Order Date COLONOSCOPY 02/23/2011 UPPER GI ENDOSCOPY 08/15/2021 COLONOSCOPY 08/15/2021 Insurance Providers Payer Name Payer Address Payer Phone Subscriber Number Group Number Insured Name Patient Relationship to Insured Coverage Start Date Coverage End Date [facility] [employer] [facility] [address] [address] [place], [place] [id number] CORNELIUS FLOREZ Self - patient is the [...]
== END 2025-01-04 14:17 | disposition home or self-care (01) ==
LOC: HO.HMCC 11:23
PROVIDERS: PCP Internal Medicine; Visit Provider Internal Medicine
DX: E04.1 Nontoxic single thyroid nodule (principal); I10 Essential (primary) hypertension; M85.89 Other specified disorders of bone density and structure, multiple sites

== ENCOUNTER → 2025-01-04 11:22 | Outpatient (BNVA) | payer MEDICARE, SELFPAY | PROVIDERS: PCP Internal Medicine; Visit Provider Internal Medicine | DX: E04.1 Nontoxic single thyroid nodule (principal); I10 Essential (primary) hypertension; M85.89 Other specified disorders of bone density and structure, multiple sites | CPT/HCPCS: 96127; 99212 ==

== ENCOUNTER 2025-02-08 09:48 | Outpatient (REF) | payer MEDICARE, SELFPAY ==
--- NOTE | ~2025-02-08 | FL_ITS ---
EXAMINATION: XR BARIUM SWALLOW CLINICAL INFORMATION: Localized swelling/mass or lump in neck COMPARISON: Comparison made with prior barium swallow reports most recent July 2008. No images available. TECHNIQUE: Barium swallow was performed using thin and thick barium and effervescent granules. Barium tablet was also administered. FINDINGS: The swallowing mechanism is normal. No aspiration or penetration. Slightly prominent cricopharyngeus muscle. Normal esophageal motility. There is severe gastroesophageal reflux to the level of the aortic arch. No mass, mucosal irregularity, stricture or hernia. Barium tablet passed freely into the stomach. Question slightly prominent gastric folds. FLUOROSCOPY TIME: 1 minute 37 seconds DOSE AREA PRODUCT: 782 uGy-m2 (microgray-meter squared) FL/FL barium swallow with air IMPRESSION: Severe gastroesophageal reflux. Question prominent gastric folds. This may represent mild gastritis. Electronically signed by: Kelsie Choi MD 02/08/2025 03:44 PM JOSE ALFREDO
== END 2025-02-08 09:49 | disposition home or self-care (01) ==
LOC: HO.XRAY 09:48
PROVIDERS: PCP Internal Medicine; Visit Provider Internal Medicine
DX: R22.1 Localized swelling, mass and lump, neck (principal); R13.10 Dysphagia, unspecified; R09.A2 Foreign body sensation, throat
CPT/HCPCS: 74221

== ENCOUNTER → 2025-02-08 09:50 | Outpatient (BNV) | payer MEDICARE, SELFPAY | PROVIDERS: PCP Internal Medicine; Visit Provider Radiology Diagnostic Radiology | DX: K21.9 Gastro-esophageal reflux disease without esophagitis (principal) | CPT/HCPCS: 74221 ==